=== PATIENT | female | born 1940 | race Caucasian/White ===

== ENCOUNTER → 2017-01-14 | Outpatient (CLI) | payer BC ==
[~2017-01-14] MED LIST: ASPI-428 PO; CALC500C70 PO; CITA20TA9 PO; INSU70IN2 SC; LEVO50TA6 PO; LISI1TAB3 PO; LPT/40 PO; MRLP17X PO; NMN10 PO; TPRSR/25 PO
--- NOTE | 2017-01-17 07:44 | MAMMOGRAPHY REPORT ---
BILATERAL DIGITAL SCREENING MAMMOGRAM WITH CAD: 01/14/2017 CLINICAL HISTORY: Routine screening. Patient has no complaints. TECHNIQUE: Current study was also evaluated with a Computer Aided Detection (CAD) system. Bilateral CC and MLO views were obtained. COMPARISON: Comparison is made to exams dated: 12/12/2015 mammogram, 05/11/2010 mammogram, 05/06/2009 ultrasound, 05/06/2009 mammogram, 08/21/2002 mammogram, and 05/23/1996 mammogram - [facility]. BREAST COMPOSITION: There are scattered areas of fibroglandular density in both breasts. FINDINGS: No suspicious masses, calcifications, or areas of architectural distortion are noted in ei ther breast. There has been no significant interval change compared to prior exams. Scattered bilater al benign-appearing calcifications are not significantly changed. Focal asymmetry in the left 12:00 breast is stable dating back to the 2008 exam. IMPRESSION: ACR BI-RADS CATEGORY 2: BENIGN There is no mammographic evidence of malignancy. A 1 year screening mammogram is recommended. The pa tient will receive written notification of the results. Approximately 10% of breast cancers are not detected with mammography. A negative mammographic report should not delay biopsy if a clinically suggestive mass is present. Kanika Bell M.D. /:01/14/2017 16:37:28 Supervisor Veneer: Leticia Tafoya, [facility] [address] letter sent: Normal 1/2 BI-RADS Code: ACR BI-RADS Category 2: Benign
== END | disposition home or self-care (01) ==
LOC: C.MAMM 13:32
PROVIDERS: ATTEND Family Medicine
DX: Z12.31 Encounter for screening mammogram for malignant neoplasm of breast (principal)

== ENCOUNTER → 2017-09-08 | Outpatient (CLI) | payer BC | END | disposition home or self-care (01) | LOC: C.RDSM 10:54 | PROVIDERS: ATTEND Family Medicine Sports Medicine | DX: M25.552 Pain in left hip (principal) ==

== ENCOUNTER 2018-06-12 12:23 | Observation (INO) ==
[2018-06-12] MEDS ORDERED: NITROGLYCERIN SL 0.4 MG/TAB TAB SL PRN ×2 (13:27→16:27)
[2018-06-12] MEDS ORDERED: ONDANSETRON INJ 2 MG/ML 2 ML VIAL IV STA (13:27)
[2018-06-12] MEDS ORDERED: SODIUM CHLORIDE 0.9% 500 ML IV SCH (13:30)
[2018-06-12 13:43] LABS: Basophils # (auto) 0.03 K/uL (0-0.2); Basophils % (auto) 0.3 %; Eosinophils # (auto) 0.05 K/uL (0-0.5); Eosinophils % (auto) 0.5 %; Hematocrit (blood only) 43.1 % (37-47); Hemoglobin 14.8 g/dL (12.0-16.0); Immature Granulocytes # (auto) 0.02 K/uL (0.00-0.02); Immature Granulocytes % (auto) 0.2 %; Lymphocytes # (auto) 1.37 K/uL (1.2-3.4); Lymphocytes % (auto) 13.2 %; Mean Corpuscular Hgb Conc 34.3 g/dL (32-36); Mean Corpuscular Volume 86.9 fL (80-100); Mean Platelet Volume 11.9 fL (7.4-10.4); Monocytes # (auto) 0.36 K/uL (0.11-0.59); Monocytes % (auto) 3.5 %; Neutrophils # (auto) 8.53 K/uL (1.4-6.5); Neutrophils % (auto) 82.3 %; Platelet Count 215 K/uL (130-400); RDW Coefficient of Variation 13.3 % (11.5-14.5); Red Blood Count 4.96 M/uL (4.2-5.4); White Blood Count 10.36 K/uL (4.8-10.8)
[2018-06-12 13:50] LABS: Albumin Level 3.9 gm/dl (3.4-5.0); BUN Creatinine Ratio 12.1 (10-20); Creatinine Clr Calc Pharmacy 37.8 ml/min; Est GFR (African American) 54.5
[2018-06-12 13:53] LABS: Albumin Globulin Ratio 0.9 (0.9-2); Globulin 4.4 gm/dl (2.5-4.0); Total Protein 8.3 gm/dl (6.4-8.2)
--- NOTE | 2018-06-12 14:09 | XRay Report ---
XR abdomen 2V w PA chest CLINICAL HISTORY: 77 years-old Female presenting with vomiting/cp eval for obstruction. TECHNIQUE: PA view of the chest and supine and upright views of the abdomen were obtained. COMPARISON: 05/29/2016. FINDINGS: Atherosclerosis of the aortic arch. Cardiac silhouette normal in size. Multiple calcified granuloma s uggested. Lungs and pleural spaces otherwise clear. Nonobstructive bowel gas pattern. No gross pneumoperitoneum. Numerous punctate calcifications noted throughout the spleen likely indicating a history of chronic g ranulomatous disease. Atherosclerotic calcifications noted. Total right hip arthroplasty. Mild multilevel degenerative changes of the spine. IMPRESSION: 1. No acute cardiopulmonary disease. 2. No radiographic evidence of acute intra-abdominal pathology. Electronically signed by: Toney Irwin M.D. 06/12/2018 2:08 PM
[2018-06-12] MEDS ORDERED: GLUCAGON FOR INJ 1 MG VIAL SQ PRN (16:27)
[2018-06-12] MEDS ORDERED: DEXTROSE 50% 50 ML SYRINGE IV PRN (16:27)
[2018-06-12] MEDS ORDERED: GLUCOSE 40% GEL 15 GM TUBE PO PRN (16:27)
[2018-06-12] MEDS ORDERED: CARBOHYDRATES FOR HYPOGLYCEMIA PO PRN (16:27)
[2018-06-12] MEDS ORDERED: GLUCOSE 10 TABS/TUBE PO PRN (16:27)
[2018-06-12] MEDS ORDERED: ACETAMINOPHEN 325 MG TAB PO PRN (16:27)
[2018-06-12] MEDS ORDERED: METOPROLOL SUCC 25MG EXT REL TAB PO SCH (16:27)
[2018-06-12 17:02] LABS: Partial Thromboplastin Ratio 0.9; Partial Thromboplastin Time 24.4 Seconds (21.0-31.0); Prothrombin Time 10.2 Seconds (9.0-12.0)
[2018-06-12] MEDS: ASPIRIN 81 MG ECTAB PO SCH (17:02)
[2018-06-12] MEDS: INSULIN ASPART 100 UNITS/ML 3 ML PEN SC SCH ×2 (17:02→20:45)
[2018-06-12] MEDS: LISINOPRIL 40 MG TAB PO SCH (17:02)
[2018-06-12] MEDS: ATORVASTATIN 40 MG TAB PO SCH (17:02)
[2018-06-12] MEDS: LEVOTHYROXINE SODIUM 50 MCG TABLET PO SCH (17:03)
--- NOTE | 2018-06-12 17:46 | Emergency Department Note ---
Entered by Ashley Guo acting as a scribe for Kb Grant MD History of Present Illness General Chief complaint: Chest Pain Stated complaint: CHEST PAINS Source: patient History of Present Illness Onset (ago): day(s) 2 Location: chest Radiation: back (back of shoulder) Pain Consistency: + constant Maximum Pain Intensity: 7 Quality: + other ("pressure") Relieved By: + none Exacerbated By: + none Associated symptoms: + nausea/vomiting (negative nausea, positive vomiting); no shortness of breath and no other (light-headedness, abdmonial pain) The patient is a 77 year old F who presents to the Emergency Room with complaints of constant chest pain starting two days ago. She states that the pain radiates to the back of her shoulder. She describes the pain as a �pressure �. She adds that nothing makes that pain better or worse. She notes that she tried Ibuprofen to no relief. She states that she is vomiting, but denies being short of breath, light-headed, having abdominal pain, or nausea. She states that she threw up twice last night and has not eaten anything since Tuesday due to her chest pain. She adds that she has not taken her blood pressure medication for 3 doses. Home Medications Home Medications Medication Instructions Recorded Confirmed Type aspirin [Aspirin Low Dose] 81 mg PO DAILY 06/12/18 06/12/18 History atorvastatin 40 mg PO DAILY 06/12/18 06/12/18 History insulin NPH and regular human 20 unit SUBCUT DAILY 06/12/18 06/12/18 History [Novolin 70/30 U-100 Insulin] levothyroxine 50 mcg PO DAILY 06/12/18 06/12/18 History lisinopril 40 mg PO DAILY 06/12/18 06/12/18 History metoprolol succinate 25 mg PO DAILY 06/12/18 06/12/18 History nitroglycerin 0.4 mg SUBLINGUAL DIRECTED 06/12/18 06/12/18 History sitagliptin-metformin 1 tab PO BID 06/12/18 06/12/18 History Allergies Allergy/AdvReac Type Severity Reaction Status Date / Time latex Allergy Severe SKIN TEARS Verified 06/12/18 13:03 acetaminophen AdvReac Mild UPSET Verified 06/12/18 13:03 STOMACH codeine AdvReac Mild UPSET Verified 06/12/18 13:03 STOMACH propoxyphene AdvReac Mild UPSET Verified 06/12/18 13:03 STOMACH Past Med/Surg History Medical History CAD (coronary artery disease) (Chronic) 2014-NICHLOAS to RCA HTN (hypertension) (Chronic 09/08/13) History of CVA (cerebrovascular accident) (Chronic) Diabetes mellitus type 2 in nonobese (Chronic) CKD (chronic kidney disease) stage 3, GFR 30-59 ml/min (Chronic) Hypothyroidism (Chronic) Senile dementia (Chronic) Slow transit constipation (Chronic) Osteoporosis (Chronic) Dyslipidemia (Chronic) Fracture of right hip requiring operative repair (Resolved) "ORIF 10/2005" Surgical History History of hysterectomy (Resolved) H/O cataract removal with insertion of prosthetic lens (Resolved) "Left 02/15/15" Social History Current Living Situation: Alone Current Living Situation Comment: Pt lives in 2 story house alone Feels Safe at Home: Yes Safety Concerns: Feels Safe At This Time Smoking Status: Never smoker Hx Alcohol Use: No Hx Substance Use: No Beliefs That Will Affect Care: None Preferred Language: Hungarian Claims Investigator Required: No Review of Systems See HPI for pertinent positives & negatives. and A total of 10 systems reviewed and were otherwise negative Physical Exam Vital Signs Vital Signs - 24 hr 06/12/18 12:27 06/12/18 12:48 06/12/18 12:52 Temperature 36.8 C Temperature Source Oral Sepsis Recent Fever Within 48 Hours No Sepsis New/Unexplained Change in Mental Status No Sepsis Action Taken by Nursing No Action Required Pulse Rate 88 82 83 Pulse Rate [Right Brachial] Pulse Rhythm [Right Brachial] Pulse Strength [Right Brachial] Respiratory Rate 18 17 16 Respiratory Effort / Characteristics Non-Labored Spontaneous Respiratory Depth Normal Respiratory Pattern Regular Blood Pressure 210/102 H 210/123 H Blood Pressure [Right Radial Artery] Blood Pressure Mean 138 152 Blood Pressure Mean [Right Radial Artery] Blood Pressure Position [Right Radial Artery] Pulse Oximetry 100 98 100 Oxygen Delivery Method Room Air 06/12/18 13:00 06/12/18 13:08 06/12/18 13:10 Temperature Temperature Source Sepsis Recent Fever Within 48 Hours Sepsis New/Unexplained Change in Mental Status Sepsis Action Taken by Nursing Pulse Rate 78 80 Pulse Rate [Right Brachial] Pulse Rhythm [Right Brachial] Pulse Strength [Right Brachial] Respiratory Rate 16 22 Respiratory Effort / Characteristics Respiratory Depth Respiratory Pattern Blood Pressure 211/98 H Blood Pressure [Right Radial Artery] Blood Pressure Mean 135 Blood Pressure Mean [Right Radial Artery] Blood Pressure Position [Right Radial Artery] Pulse Oximetry 97 98 98 Oxygen Delivery Method Room Air 06/12/18 13:20 06/12/18 13:30 06/12/18 13:31 Temperature Temperature Source Sepsis Recent Fever Within 48 Hours Sepsis New/Unexplained Change in Mental Status Sepsis Action Taken by Nursing Pulse Rate 85 79 77 Pulse Rate [Right Brachial] Pulse Rhythm [Right Brachial] Pulse Strength [Right Brachial] Respiratory Rate 10 L 18 17 Respiratory Effort / Characteristics Respiratory Depth Respiratory Pattern Blood Pressure 194/99 H Blood Pressure [Right Radial Artery] Blood Pressure Mean 130 Blood Pressure Mean [Right Radial Artery] Blood Pressure Position [Right Radial Artery] Pulse Oximetry 98 98 98 Oxygen Delivery Method 06/12/18 13:40 06/12/18 14:18 06/12/18 14:31 Temperature Temperature Source Sepsis Recent Fever Within 48 Hours Sepsis New/Unexplained Change in Mental Status Sepsis Action Taken by Nursing Pulse Rate 85 Pulse Rate [Right Brachial] Pulse Rhythm [Right Brachial] Pulse Strength [Right Brachial] Respiratory Rate 20 Respiratory Effort / Characteristics Respiratory Depth Respiratory Pattern Blood Pressure 160/79 H 158/74 H Blood Pressure [Right Radial Artery] Blood Pressure Mean 106 102 Blood Pressure Mean [Right Radial Artery] Blood Pressure Position [Right Radial Artery] Pulse Oximetry 98 Oxygen Delivery Method 06/12/18 15:00 06/12/18 16:33 Temperature 36.4 C L Temperature Source Oral Sepsis Recent Fever Within 48 Hours Sepsis New/Unexplained Change in Mental Status Sepsis Action Taken by Nursing Pulse Rate 78 Pulse Rate [Right Brachial] 77 Pulse Rhythm [Right Brachial] Regular Pulse Strength [Right Brachial] Normal Respiratory Rate 22 Respiratory Effort / Characteristics Non-Labored Spontaneous Respiratory Depth Normal Respiratory Pattern Regular Blood Pressure 177/80 H Blood Pressure [Right Radial Artery] 181/95 H Blood Pressure Mean 112 Blood Pressure Mean [Right Radial Artery] 123 Blood Pressure Position [Right Radial Artery] Lying Pulse Oximetry 98 Oxygen Delivery Method Room Air Constitutional: Vital signs reviewed. Hypertensive. Eyes: Pupils are equal round reactive to light. Conjunctiva are noninjected. ENT: Pharynx is clear without erythema or exudate. Mucous membranes are moist. Neck supple without meningeal signs. Respiratory: Clear to auscultation bilaterally. Breath sounds are equal bilaterally. Cardiovascular: Regular rate and rhythm. No rubs or gallops. GI: Soft, nondistended and nontender. Bowel sounds are present. Musculoskeletal: No peripheral edema. No lower extremity tenderness. Integumentary: No cyanosis. Neurological: The patient is awake and alert. No focal deficits. Psychiatric: Normal affect. Course 1313: Past medical records reviewed. The patient was evaluated in room C2, and a complete history and physical examination were performed. 1418: I re-evaluated the patient. The patient states that her chest pain is gone with nitro. The patient's systolic blood pressure is 160. The patient's son said heron the patient ate yesterday but the patient forgot. 1433: I reviewed the patient's case with [facility] Hospitalist. She will evaluate the patient for further management. Consultations Consultation #1: I [facility] the [facility] She will evaluate the patient for further management. Time: 14:33 Administered Medications Aspirin (Ecotrin) 81 mg PO DAILY [facility] Stop: 07/12/18 16:26 Last Admin: 06/12/18 17:02 Dose: 81 mg Atorvastatin Calcium (Lipitor) 40 mg PO DAILY ROM Stop: 07/12/18 16:26 Last Admin: 06/12/18 17:02 Dose: 40 mg Insulin Aspart (Novolog Flexpen) 0 units SC ACHS ROM Stop: 07/12/18 16:29 Last Admin: 06/12/18 17:02 Dose: 3 units Levothyroxine Sodium (Synthroid) 50 mcg PO DAILYBB [facility] Stop: 07/12/18 16:26 Last Admin: 06/12/18 17:03 Dose: 50 mcg Lisinopril (Zestril) 40 mg PO DAILY ROM Stop: 07/12/18 16:26 Last Admin: 06/12/18 17:02 Dose: 40 mg Metoprolol Succinate (Toprol Xl) 25 mg PO DAILY ROM Stop: 07/12/18 16:26 Last Admin: 06/12/18 17:02 Dose: 25 mg Discontinued Medications Sodium Chloride (Nss) 500 mls @ 999 mls/hr IV .Q31M ROM Stop: 06/12/18 14:00 Last Infusion: 06/12/18 14:21 Dose: 0 mls/hr Admin: 06/12/18 13:41 Dose: 999 mls/hr Nitroglycerin (Nitrostat) 0.4 mg SL UD PRN PRN Reason: Chest Pain Stop: 07/12/18 13:26 Last Admin: 06/12/18 13:41 Dose: 0.4 mg Ondansetron HCl (Zofran) 4 mg IV NOW STA Stop: 06/12/18 13:28 Last Admin: 06/12/18 13:41 Dose: 4 mg Medical Decision Making Differential Diagnosis Differential Diagnosis includes: unstable angina, [place], bowel obstruction, pneumonia, GERD Medical Records Attestation: I reviewed the patient's medical records. Home Medications Current Medication List: was personally reviewed by me Laboratory Data Attestation: I reviewed the patient's lab results. Result diagrams: 06/12/18 12:40 06/12/18 12:40 Lab Results 06/12/18 06/12/18 06/12/18 Range/Units 12:40 12:40 12:40 WBC 10.36 (4.8-10.8) K/uL RBC 4.96 (4.2-5.4) M/uL Hgb 14.8 (12.0-16.0) g/dL Hct 43.1 (37-47) % MCV 86.9 (80-100) fL MCH 29.8 (25-34) pg MCHC 34.3 (32-36) g/dL RDW Std Deviation 42.0 (36.4-46.3) fL RDW Coeff of Sarah 13.3 (11.5-14.5) % Plt Count 215 (130-400) K/uL MPV 11.9 H (7.4-10.4) fL Immature Gran % (Auto) 0.2 % Neut % (Auto) 82.3 % Lymph % (Auto) 13.2 % [place] % (Auto) 3.5 % Eos % (Auto) 0.5 % Baso % (Auto) 0.3 % Immature Gran # (Auto) 0.02 (0.00-0.02) K/uL Neut # (Auto) 8.53 H (1.4-6.5) K/uL Lymph # (Auto) 1.37 (1.2-3.4) K/uL [place] # (Auto) 0.36 (0.11-0.59) K/uL Eos # (Auto) 0.05 (0-0.5) K/uL Baso # (Auto) 0.03 (0-0.2) K/uL PT 10.2 (9.0-12.0) Seconds INR 1.0 (0.9-1.1) APTT 24.4 (21.0-31.0) Seconds PTT Ratio 0.9 Sodium 135 L (136-145) mmol/L Potassium 4.0 (3.5-5.1) mmol/L Chloride 97 L (98-107) mmol/L Carbon Dioxide 29 (21-32) mmol/L Anion Gap 9.0 (3-11) BUN 14 (7-18) mg/dl Creatinine 1.14 (0.6-1.2) mg/dl Est Cr Clr Drug Dosing 37.8 ml/min Est GFR ( Amer) 54.5 Est GFR (Non-Af Amer) 47.0 BUN/Creatinine Ratio 12.1 (10-20) Glucose 343 H (70-99) mg/dl POC Glucose (70-99) Calcium 9.0 (8.5-10.1) mg/dl Total Bilirubin 1.0 (0.1-1) mg/dl AST 12 L (15-37) U/L ALT 18 (12-78) U/L Alkaline Phosphatase 144 H (45-117) U/L POC Troponin I (0-0.045) ng/ml Total Protein 8.3 H (6.4-8.2) gm/dl Albumin 3.9 (3.4-5.0) gm/dl Globulin 4.4 H (2.5-4.0) gm/dl Albumin/Globulin Ratio 0.9 (0.9-2) Lipase 89 (73-393) U/L Beta-Hydroxybutyric Acd 8.27 H (0.2-2.81) mg/dl 06/12/18 06/12/18 Range/Units 13:41 16:18 WBC (4.8-10.8) K/uL RBC (4.2-5.4) M/uL Hgb (12.0-16.0) g/dL Hct (37-47) % MCV (80-100) fL MCH (25-34) pg MCHC (32-36) g/dL RDW Std Deviation (36.4-46.3) fL RDW Coeff of Sarah (11.5-14.5) % Plt Count (130-400) K/uL MPV (7.4-10.4) fL Immature Gran % (Auto) % Neut % (Auto) % Lymph % (Auto) % [place] % (Auto) % Eos % (Auto) % Baso % (Auto) % Immature Gran # (Auto) (0.00-0.02) K/uL Neut # (Auto) (1.4-6.5) K/uL Lymph # (Auto) (1.2-3.4) K/uL [place] # (Auto) (0.11-0.59) K/uL Eos # (Auto) (0-0.5) K/uL Baso # (Auto) (0-0.2) K/uL PT (9.0-12.0) Seconds INR (0.9-1.1) APTT (21.0-31.0) Seconds PTT Ratio Sodium (136-145) mmol/L Potassium (3.5-5.1) mmol/L Chloride (98-107) mmol/L Carbon Dioxide (21-32) mmol/L Anion Gap (3-11) BUN (7-18) mg/dl Creatinine (0.6-1.2) mg/dl Est Cr Clr Drug Dosing ml/min Est GFR ( Amer) Est GFR (Non-Af Amer) BUN/Creatinine Ratio (10-20) Glucose (70-99) mg/dl POC Glucose 240 H (70-99) Calcium (8.5-10.1) mg/dl Total Bilirubin (0.1-1) mg/dl AST (15-37) U/L ALT (12-78) U/L Alkaline Phosphatase (45-117) U/L POC Troponin I < 0.03 (0-0.045) ng/ml Total Protein (6.4-8.2) gm/dl Albumin (3.4-5.0) gm/dl Globulin (2.5-4.0) gm/dl Albumin/Globulin Ratio (0.9-2) Lipase (73-393) U/L Beta-Hydroxybutyric Acd (0.2-2.81) mg/dl Imaging Data Radiologist's Impression: Radiology results as stated below per my review and the radiologist's interpretation: XR abdomen 2V w PA chest CLINICAL HISTORY: 77 years-old Female presenting with vomiting/cp eval for obstruction. TECHNIQUE: PA view of the chest and supine and upright views of the abdomen were obtained. COMPARISON: 05/29/2016. FINDINGS: Atherosclerosis of the aortic arch. Cardiac silhouette normal in size. Multiple calcified granuloma suggested. Lungs and pleural spaces otherwise clear. Nonobstructive bowel gas pattern. No gross pneumoperitoneum. Numerous punctate calcifications noted throughout the spleen likely indicating a history of chronic granulomatous disease. Atherosclerotic calcifications noted. Total right hip arthroplasty. Mild multilevel degenerative changes of the spine. IMPRESSION: 1. No acute cardiopulmonary disease. 2. No radiographic evidence of acute intra-abdominal pathology. Electronically signed by: Toney Irwin M.D. 06/12/2018 2:08 PM ECG Data Attestation: I personally reviewed and interpreted this ECG as follows: Indication: chest pain Rate (beats per minute): 82 Rhythm: normal sinus Findings: no PVC and no ST elevation Blood Pressure Blood Pressure Findings: Elevated blood pressure Blood Pressure Disposition: further management by hospitalist NEEMA Narrative I did perform a limited focused review of portions of the patient's old chart on the electronic medical record. The patient has had no recent pertinent visits to this hospital. I did evaluate the patient as noted above. IV access was established. The patient was placed on a continuous traffic monitor specialist. I did order and personally review the patient's 12-lead EKG and chest/abdominal x-ray as described above. She has no acute ischemic changes on her twelve-lead EKG. X-ray is unremarkable. I did order and review the patient's blood work as noted in the electronic medical record. Troponin is negative. The patient is severely hypertensive. She was given nitroglycerin sublingually. On reassessment her chest pain is completely resolved and her blood pressure is significantly improved. Given her history of [place] and current symptoms I did feel hospitalization was indicated for repeat cardiac enzymes and further workup. I did discuss the test results with the patient and her family. I did discuss case with the hospitalist and immigration case worker. Impression & Plan Right-sided chest pain, Poorly-controlled hypertension Discharge Plan Visit Data *Final* Discharge Date/Time: 06/12/18 15:34 Chief Complaint: Chest Pain Stated Complaint: CHEST PAINS ED Provider: Kb Grant Discharge Problem: Right-sided chest pain, Poorly-controlled hypertension Patient Disposition: Admitted As Inpatient Discharge Instructions Interventions: ED Discharge Assessment Last Done: 06/12/18 15:34 The scribe's documentation has been prepared under my direction and personally reviewed by me in its entirety. I confirm that the note above accurately reflects all work, treatment, procedures, and medical decision making performed by me.
--- NOTE | 2018-06-12 17:52 | History & Physical Report ---
Date of Service June 12, 2018 Assessment & Plan (1) CAD (coronary artery disease): (2) Right-sided chest pain: -Admit to telemetry -Patient presenting with 3 days of right scapular/right-sided chest pain -In the ED, patient was given 1 sublingual nitroglycerin with resolution of symptoms -Suspect symptoms are musculoskeletal in nature or due to hypertensive urgency however given patient's history of CAD (S/P NICHOLAS to RCA 2013), will rule out for ACS -Initial troponin negative, will continue to trend; check resting echo -Continue aspirin, statin, beta-wesly (3) Hypertensive urgency: -Patient significantly hypertensive on arrival with BP 210/123 -BP improved after sublingual nitroglycerin -Patient reports she has not taken her home medications yet today -Continue home doses of lisinopril and metoprolol for now, continue monitor BP and make adjustments as needed (4) Urinary frequency: -Check UA and culture, provide antibiotics if indicated (5) History of CVA (cerebrovascular accident): -Continue aspirin and statin (6) Diabetes mellitus type 2 in nonobese: -Hgb A1c 7.7 04/2017 -Hold 70/30 insulin and oral agents and utilize Lantus and NovoLog per protocol while hospitalized -Update Hgb A1c (7) CKD (chronic kidney disease) stage 3, GFR 30-59 ml/min: - baseline creat ~1.0 - creat noted to be 1.1 today - continue to monitor, avoid nephrotoxic agents when able (8) Hypothyroidism: -Continue levothyroxine (9) DVT prophylaxis: -SQ heparin History of Present Illness Chief Complaint: Right-sided chest pain Primary Care Provider: Mally Palumbo 77-year-old female who presents to the ED with right-sided chest pain. Patient reports her symptoms have been ongoing for the past 3 days. She reports that the pain begins around her right shoulder blade and radiates around into her right breast. Review of outpatient records show that patient reported she was carrying groceries a day before her symptoms started. Patient reports the pain has been persistent. She describes the pain as a constant ache. She rates the pain as worse a #7/10. She denies any associated shortness of breath. She reports one episode of diaphoresis. Last evening, she reports nausea and 2 episodes of emesis. She denies hematemesis or coffee-ground emesis. No abdominal pain or diarrhea. She denies lightheadedness, dizziness, syncopal events. No fevers or chills. She reports some urinary frequency and feels as though she may have a UTI. In the ED, patient was given 1 sublingual nitroglycerin with complete resolution of her symptoms. She is found to be sniffily hypertensive with BP 210/123. BP improved after sublingual nitroglycerin as well. Patient reports she did not take her medications yet today. Initial troponin is negative, EKG does not show any acute ST changes. Allergies Allergy/AdvReac Type Severity Reaction Status Date / Time latex Allergy Severe SKIN TEARS Verified 06/12/18 13:03 acetaminophen AdvReac Mild UPSET Verified 06/12/18 13:03 STOMACH codeine AdvReac Mild UPSET Verified 06/12/18 13:03 STOMACH propoxyphene AdvReac Mild UPSET Verified 06/12/18 13:03 STOMACH Home Medications Home Medications Medication Instructions Recorded Confirmed Type aspirin [Aspirin Low Dose] 81 mg PO DAILY 06/12/18 06/12/18 History atorvastatin 40 mg PO DAILY 06/12/18 06/12/18 History insulin NPH and regular human 20 unit SUBCUT DAILY 06/12/18 06/12/18 History [Novolin 70/30 U-100 Insulin] levothyroxine 50 mcg PO DAILY 06/12/18 06/12/18 History lisinopril 40 mg PO DAILY 06/12/18 06/12/18 History metoprolol succinate 25 mg PO DAILY 06/12/18 06/12/18 History nitroglycerin 0.4 mg SUBLINGUAL DIRECTED 06/12/18 06/12/18 History sitagliptin-metformin 1 tab PO BID 06/12/18 06/12/18 History Past Med/Surg History Medical History CAD (coronary artery disease) (Chronic) 2013-NICHOLAS to RCA HTN (hypertension) (Chronic 09/08/13) History of CVA (cerebrovascular accident) (Chronic) Diabetes mellitus type 2 in nonobese (Chronic) CKD (chronic kidney disease) stage 3, GFR 30-59 ml/min (Chronic) Hypothyroidism (Chronic) Senile dementia (Chronic) Slow transit constipation (Chronic) Osteoporosis (Chronic) Dyslipidemia (Chronic) Fracture of right hip requiring operative repair (Resolved) "ORIF 10/2005" Surgical History History of hysterectomy (Resolved) H/O cataract removal with insertion of prosthetic lens (Resolved) "Left 02/15/15" Social History Current Living Situation: Alone Current Living Situation Comment: Pt lives in 2 story house alone Feels Safe at Home: Yes Safety Concerns: Feels Safe At This Time Smoking Status: Never smoker Hx Alcohol Use: No Hx Substance Use: No Beliefs That Will Affect Care: None Preferred Language: [place] Checkout Supervisor Required: No Review of Systems ROS per HPI, all other systems reviewed and negative Physical Exam 2 Vital Signs (Past 24 Hours): Last Vital Signs Temp 36.4 C L 06/12/18 16:33 Pulse 77 06/12/18 16:33 Resp 22 06/12/18 16:33 BP 181/95 H 06/12/18 16:33 Pulse Ox 98 06/12/18 16:33 Constitutional: WD/WN, vitals as above Eyes: PERRL, conjunctivae normal, anicteric sclerae ENMT: external ear and nose normal, oropharynx normal Respiratory: normal respiratory effort, lungs clear to auscultation Cardiovascular: Rate/Rhythm: regular rate and regular rhythm Vessels: normal peripheral pulses Extremities: no edema Gastrointestinal (Abdomen): normal bowel sounds, soft, nontender, no hepatosplenomegaly Musculoskeletal: no cyanosis or clubbing, extremities motor strength 5/5 Skin: no rashes, warm and dry Neurologic: PERRL, EOMI, accommodation nl, no face palsy, no dysarthria Psychiatric: A+Ox3, euthymic affect Results & Data Laboratory Results Laboratory Last Values WBC 10.36 K/uL (4.8-10.8) 06/12/18 12:40 RBC 4.96 M/uL (4.2-5.4) 06/12/18 12:40 Hgb 14.8 g/dL (12.0-16.0) 06/12/18 12:40 Hct 43.1 % (37-47) 06/12/18 12:40 MCV 86.9 fL (80-100) 06/12/18 12:40 MCH 29.8 pg (25-34) 06/12/18 12:40 MCHC 34.3 g/dL (32-36) 06/12/18 12:40 RDW Std Deviation 42.0 fL (36.4-46.3) 06/12/18 12:40 RDW Coeff of Sarah 13.3 % (11.5-14.5) 06/12/18 12:40 Plt Count 215 K/uL (130-400) 06/12/18 12:40 MPV 11.9 fL (7.4-10.4) H 06/12/18 12:40 Immature Gran % (Auto) 0.2 % 06/12/18 12:40 Neut % (Auto) 82.3 % 06/12/18 12:40 Lymph % (Auto) 13.2 % 06/12/18 12:40 [place] % (Auto) 3.5 % 06/12/18 12:40 Eos % (Auto) 0.5 % 06/12/18 12:40 Baso % (Auto) 0.3 % 06/12/18 12:40 Immature Gran # (Auto) 0.02 K/uL (0.00-0.02) 06/12/18 12:40 Neut # (Auto) 8.53 K/uL (1.4-6.5) H 06/12/18 12:40 Lymph # (Auto) 1.37 K/uL (1.2-3.4) 06/12/18 12:40 [place] # (Auto) 0.36 K/uL (0.11-0.59) 06/12/18 12:40 Eos # (Auto) 0.05 K/uL (0-0.5) 06/12/18 12:40 Baso # (Auto) 0.03 K/uL (0-0.2) 06/12/18 12:40 PT 10.2 Seconds (9.0-12.0) 06/12/18 12:40 INR 1.0 (0.9-1.1) 06/12/18 12:40 APTT 24.4 Seconds (21.0-31.0) 06/12/18 12:40 PTT Ratio 0.9 06/12/18 12:40 Sodium 135 mmol/L (136-145) L 06/12/18 12:40 Potassium 4.0 mmol/L (3.5-5.1) 06/12/18 12:40 Chloride 97 mmol/L (98-107) L 06/12/18 12:40 Carbon Dioxide 29 mmol/L (21-32) 06/12/18 12:40 Anion Gap 9.0 (3-11) 06/12/18 12:40 BUN 14 mg/dl (7-18) 06/12/18 12:40 Creatinine 1.14 mg/dl (0.6-1.2) 06/12/18 12:40 Est Cr Clr Drug Dosing 37.8 ml/min 06/12/18 12:40 Est GFR ( Amer) 54.5 06/12/18 12:40 Est GFR (Non-Af Amer) 47.0 06/12/18 12:40 BUN/Creatinine Ratio 12.1 (10-20) 06/12/18 12:40 Glucose 343 mg/dl (70-99) H 06/12/18 12:40 POC Glucose 240 (70-99) H 06/12/18 16:18 Calcium 9.0 mg/dl (8.5-10.1) 06/12/18 12:40 Total Bilirubin 1.0 mg/dl (0.1-1) 06/12/18 12:40 AST 12 U/L (15-37) L 06/12/18 12:40 ALT 18 U/L (12-78) 06/12/18 12:40 Alkaline Phosphatase 144 U/L (45-117) H 06/12/18 12:40 POC Troponin I < 0.03 ng/ml (0-0.045) 06/12/18 13:41 Total Protein 8.3 gm/dl (6.4-8.2) H 06/12/18 12:40 Albumin 3.9 gm/dl (3.4-5.0) 06/12/18 12:40 Globulin 4.4 gm/dl (2.5-4.0) H 06/12/18 12:40 Albumin/Globulin Ratio 0.9 (0.9-2) 06/12/18 12:40 Lipase 89 U/L (73-393) 06/12/18 12:40 Beta-Hydroxybutyric Acd 8.27 mg/dl (0.2-2.81) H 06/12/18 12:40 Diagnostic Findings CHEST/ABDOMEN X-RAY IMPRESSION: 1. No acute cardiopulmonary disease. 2. No radiographic evidence of acute intra-abdominal pathology. Code Status & VTE Plan VTE Prophylaxis Plan VTE Prophylaxis will be ordered: Yes Supervising Physician Co-Signing Physician Notes Patient is a 77-year-old female with multiple comorbidities presents with history of right-sided chest pain since 3 days duration. She reports associated right shoulder blade pain radiating across the chest. She reports associated nausea, vomiting, diarrhea. She states not taking her blood pressure medications since last 4-5 days. History is unreliable given history of dementia. She was noted to have hypertensive emergency while in ED. she received nitroglycerin while in ED which improved her symptoms. Patient denied any recent antibiotic use, sick contacts or recent travel. Initial troponin is negative and EKG did not show any signs of acute ischemia. On exam patient is moderately built and nourished, no apparent distress, lungs are clear to auscultation, S1-S2, no murmur, abdomen is benign, trace pedal edema edema is noted. Given history of coronary artery disease patient is admitted in telemetry unit to rule out ACS. Chest pain likely is musculoskeletal in origin. Plan to trend troponin, repeat EKG in a.m. and check echo for wall motion abnormality, TSH. Continue aspirin statin and metoprolol. Consider right shoulder x-ray if pain is persistent. Will start on labetalol as needed for blood pressure control. Check stool for C.diff. I personally reviewed the record. Patient is interviewed and examined at bedside. Patient's care is coordinated with Gabriella Tran REFUGE WORKER. Please refer to the documentation above for details of patient's presentation and for discussion of other issues.
[2018-06-12 18:53] LABS: Appearance Urine Clear (Clear); Bacteria Urine Automated Negative (Negative); Bilirubin Urine Negative (Negative); Color Urine Yellow; Glucose Urine UA 3+ (Negative); Ketones Urine 1+ (Negative); Leukocyte Esterase Urine Negative (Negative); Nitrite Urine Negative (Negative); Protein Urine 3+ (Negative); Specific Gravity Urine 1.029 (1.000-1.030); Urobilinogen Urine Negative (Negative)
[2018-06-12] MEDS: LABETALOL HCL IV 5 MG/ML 20ML IV PRN (19:53)
[2018-06-12] MEDS: HEPARIN SOD 5,000 UNIT/0.5 ML VIAL SQ SCH (20:44)
[2018-06-12] MEDS: INSULIN GLARGINE SOLOSTAR 100 UNITS/ML 3 ML PEN SC SCH (20:44)
[2018-06-13] MEDS: HEPARIN SOD 5,000 UNIT/0.5 ML VIAL SQ SCH ×3 (05:53→20:37)
[2018-06-13] MEDS: LEVOTHYROXINE SODIUM 50 MCG TABLET PO SCH (05:53)
[2018-06-13 06:24] LABS: Hematocrit (blood only) 40.3 % (37-47); Hemoglobin 13.5 g/dL (12.0-16.0); Mean Corpuscular Hgb Conc 33.5 g/dL (32-36); Mean Corpuscular Volume 87.8 fL (80-100); Mean Platelet Volume 11.2 fL (7.4-10.4); Platelet Count 210 K/uL (130-400); RDW Coefficient of Variation 13.3 % (11.5-14.5); RDW Standard Deviation 42.8 fL (36.4-46.3); Red Blood Count 4.59 M/uL (4.2-5.4); White Blood Count 8.98 K/uL (4.8-10.8)
[2018-06-13 06:54] LABS: BUN Creatinine Ratio 14.8 (10-20); Calcium 8.5 mg/dl (8.5-10.1); Creatinine Clr Calc Pharmacy 39.8 ml/min; Est GFR (African American) 58.2; Est GFR (Non-African American) 50.2; Potassium 3.4 mmol/L (3.5-5.1)
[2018-06-13] MEDS ORDERED: POTASSIUM CHLORIDE 10 MEQ TABCR PO STA (07:41)
[2018-06-13] MEDS: INSULIN ASPART 100 UNITS/ML 3 ML PEN SC SCH ×4 (08:15→20:35)
[2018-06-13] MEDS: ASPIRIN 81 MG ECTAB PO SCH (08:18)
[2018-06-13] MEDS: INSULIN GLARGINE SOLOSTAR 100 UNITS/ML 3 ML PEN SC SCH ×2 (08:19→20:35)
[2018-06-13] MEDS: ATORVASTATIN 40 MG TAB PO SCH (08:19)
[2018-06-13] MEDS: LISINOPRIL 40 MG TAB PO SCH (08:20)
[2018-06-13] MEDS: METOPROLOL SUCC 50MG EXT REL TAB PO SCH (08:20)
[2018-06-13] MEDS ORDERED: AMLODIPINE BESYLATE 5 MG TAB PO ONE (09:28)
[2018-06-13] MEDS: LABETALOL HCL IV 5 MG/ML 20ML IV PRN ×2 (11:54→20:34)
--- NOTE | 2018-06-13 14:12 | Hospitalist Progress Note ---
Date of Service June 13, 2018 Assessment & Plan (1) CAD (coronary artery disease): (2) Right-sided chest pain: Likely musculoskeletal in origin H/O CAD Troponin:Negative EKG shows:No signs of acute Ischemia CXR: No acute cardiopulmonary disease. ECHO: No new wall motion abnormalities. Discussed with Cardiology Continue Aspirin, statin, Metoprolol Chest pain resolved (3) Hypertensive urgency: Patient admits to being non compliant with medications for last 5 days Continue Lisinopril 40mg Increase Metoprolol to 50mg daily Add Amlodipine 5mg daily Labetalol PRN (4) Urinary frequency: UA not suggestive of UTI (5) History of CVA (cerebrovascular accident): Continue aspirin, statin (6) Diabetes mellitus type 2 in nonobese: Hb A1c 7.7 04/2017 Hold 70/30 insulin and oral agents Continue ISS, lantus e Lantus Update A1C:pending (7) CKD (chronic kidney disease) stage 3, GFR 30-59 ml/min: Baseline creat ~1.0 Cr at baseline Monitor renal function avoid nephrotoxic agents when able (8) Hypothyroidism: Continue levothyroxine (9) DVT prophylaxis: SQ heparin Code Status: Full Code Subjective Patient is seen and examined at bedside States chest pain/shoulder pain resolved Denies dyspnea, dizziness No vomiting, diarrhea since admission No other complaints BP remains elevated Physical Exam 2 Vital Signs (Past 24 Hours): Last Vital Signs Temp 36.6 C 06/13/18 07:35 Pulse 69 06/13/18 13:11 Resp 16 06/13/18 07:35 BP 161/81 H 06/13/18 13:11 Pulse Ox 96 06/13/18 07:35 Physical Exam: Physical Exam: Vitals signs as noted above General Appearance:Moderately built and nourished, no apparent distress Head: normocephalic, Atraumatic Eyes: normal inspection, EOMI, PERRL Neck: supple, Trachea midline Respiratory/Chest: Normal breath sounds, CTA Cardiovascular: S1, S2, No murmur Abdomen/GI:Soft, Non tender, Bowel sounds present Extremities/Musculoskelatal:normal inspection, Trace edema Neurologic/Psych:AAOX3, grossly no focal neurological deficits Skin: normal color, warm Results & Data Laboratory Results Short CBC 06/13/18 Range/Units 06:13 WBC 8.98 (4.8-10.8) K/uL Hgb 13.5 (12.0-16.0) g/dL Hct 40.3 (37-47) % Plt Count 210 (130-400) K/uL BMP 06/13/18 06:13 Sodium 137 Potassium 3.4 L Chloride 102 Carbon Dioxide 28 BUN 16 Creatinine 1.08 Glucose 188 H Calcium 8.5 Cardiac Enzymes 06/12/18 06/13/18 Range/Units 19:33 00:58 Troponin I < 0.015 < 0.015 (0-0.045) ng/ml Urine 06/12/18 Range/Units 18:40 Urine Color Yellow Urine Appearance Clear (Clear) Urine pH 5.0 (4.5-7.5) Ur Specific [place] 1.029 (1.000-1.030) Urine Protein 3+ H (Negative) Urine Glucose (UA) 3+ H (Negative)
[2018-06-14 05:33] LABS: Estimated Average Glucose 329 mg/dl
[2018-06-14] MEDS: LABETALOL HCL IV 5 MG/ML 20ML IV PRN (06:13)
[2018-06-14] MEDS: HEPARIN SOD 5,000 UNIT/0.5 ML VIAL SQ SCH ×2 (06:13→15:02)
[2018-06-14] MEDS: LEVOTHYROXINE SODIUM 50 MCG TABLET PO SCH (06:13)
[2018-06-14 06:50] LABS: BUN Creatinine Ratio 20.5 (10-20); Calcium 8.6 mg/dl (8.5-10.1); Creatinine Clr Calc Pharmacy 45.3 ml/min; Est GFR (African American) 67.9; Est GFR (Non-African American) 58.6; Potassium 3.7 mmol/L (3.5-5.1)
[2018-06-14] MEDS: INSULIN ASPART 100 UNITS/ML 3 ML PEN SC SCH ×3 (08:01→16:44)
[2018-06-14] MEDS: INSULIN GLARGINE SOLOSTAR 100 UNITS/ML 3 ML PEN SC SCH (08:41)
[2018-06-14] MEDS: ATORVASTATIN 40 MG TAB PO SCH (08:41)
[2018-06-14] MEDS: ASPIRIN 81 MG ECTAB PO SCH (08:41)
[2018-06-14] MEDS: LISINOPRIL 40 MG TAB PO SCH (08:42)
[2018-06-14] MEDS: METOPROLOL SUCC 50MG EXT REL TAB PO SCH (08:42)
[2018-06-14] MEDS ORDERED: AMLODIPINE BESYLATE 5 MG TAB PO SCH (09:00)
--- NOTE | 2018-06-14 14:44 | XRay Report ---
XR shoulder RT min 2V routine CLINICAL HISTORY: shoulder pain COMPARISON: None. DISCUSSION: No fractures or dislocations are visualized. Degenerative changes are present within the AC joint. There are subchondral cysts within the humerus adjacent to the greater tuberosity. There is a stable right lower lobe point nodule, likely postinflammatory IMPRESSION: 1. Mild degenerative change 2. No fractures or dislocations identified Electronically signed by: Brayan Foley M.D. 06/14/2018 2:43 PM
--- NOTE | 2018-06-14 16:35 | Hospitalist Progress Note ---
Date of Service June 14, 2018 Assessment & Plan (1) CAD (coronary artery disease): (2) Right-sided chest pain: Likely musculoskeletal in origin H/O CAD Troponin:Negative EKG shows:No signs of acute Ischemia CXR: No acute cardiopulmonary disease. ECHO: No new wall motion abnormalities. Discussed with Cardiology Continue Aspirin, statin, Metoprolol Chest pain resolved Shoulder X ray: Mild degenerative change (3) Hypertensive urgency: Patient admits to being non compliant with medications for last 5 days Continue Lisinopril 40mg Increase Metoprolol to 50mg daily Added Amlodipine 5mg daily Labetalol PRN (4) Urinary frequency: UA not suggestive of UTI (5) History of CVA (cerebrovascular accident): Continue aspirin, statin (6) Diabetes mellitus type 2 in nonobese: Hb A1c 7.7 04/2017 Hold 70/30 insulin and oral agents Continue ISS, lantus e Lantus Update A1C:13.1 Will Increase Insulin dose for better BG control (7) CKD (chronic kidney disease) stage 3, GFR 30-59 ml/min: Baseline creat ~1.0 Cr at baseline Monitor renal function avoid nephrotoxic agents when able (8) Hypothyroidism: Continue levothyroxine (9) DVT prophylaxis: SQ heparin Code Status: Full Code Disposition: Plan to discharge home today Subjective Patient is seen and examined at bedside Reports recurrence of shoulder pain overnight which currently resolved Denies dyspnea, dizziness, chest pain No vomiting, diarrhea since admission No other complaints BP improved Physical Exam 2 Vital Signs (Past 24 Hours): Last Vital Signs Temp 37.1 C 06/14/18 15:17 Pulse 68 06/14/18 15:17 Resp 17 06/14/18 15:17 BP 143/77 H 06/14/18 15:17 Pulse Ox 94 06/14/18 15:17 Constitutional: Physical Exam: Vitals signs as noted above General Appearance:Moderately built and nourished, no apparent distress Head: normocephalic, Atraumatic Eyes: normal inspection, EOMI Neck: supple, Trachea midline Respiratory/Chest: Normal breath sounds, CTA Cardiovascular: S1, S2, No murmur Abdomen/GI:Soft, Non tender, Bowel sounds present Extremities/Musculoskelatal:normal inspection, Trace edema Neurologic/Psych:AAOX3, grossly no focal neurological deficits Skin: normal color, warm Results & Data Laboratory Results [facility] 06/14/18 06:01 Sodium 139 Potassium 3.7 Chloride 106 Carbon Dioxide 27 BUN 20 H Creatinine 0.95 Glucose 183 H Calcium 8.6 Diagnostic Findings Shoulder X ray: 1. Mild degenerative change 2. No fractures or dislocations identified
--- NOTE | 2018-06-14 17:11 | Discharge Summary ---
Date of Service June 14, 2018 Admission HPI Per Admitting Provider 77-year-old female who presents to the ED with right-sided chest pain. Patient reports her symptoms have been ongoing for the past 3 days. She reports that the pain begins around her right shoulder blade and radiates around into her right breast. Review of outpatient records show that patient reported she was carrying groceries a day before her symptoms started. Patient reports the pain has been persistent. She describes the pain as a constant ache. She rates the pain as worse a #7/10. She denies any associated shortness of breath. She reports one episode of diaphoresis. Last evening, she reports nausea and 2 episodes of emesis. She denies hematemesis or coffee-ground emesis. No abdominal pain or diarrhea. She denies lightheadedness, dizziness, syncopal events. No fevers or chills. She reports some urinary frequency and feels as though she may have a UTI. In the ED, patient was given 1 sublingual nitroglycerin with complete resolution of her symptoms. She is found to be sniffily hypertensive with BP 210/123. BP improved after sublingual nitroglycerin as well. Patient reports she did not take her medications yet today. Initial troponin is negative, EKG does not show any acute ST changes. Admission Exam Per Admitting Provider Constitutional: WD/WN, vitals as above Eyes: PERRL, conjunctivae normal, anicteric sclerae ENMT: external ear and nose normal, oropharynx normal Respiratory: normal respiratory effort, lungs clear to auscultation Cardiovascular: Rate/Rhythm: regular rate and regular rhythm Vessels: normal peripheral pulses Extremities: no edema Gastrointestinal (Abdomen): normal bowel sounds, soft, nontender, no hepatosplenomegaly Musculoskeletal: no cyanosis or clubbing, extremities motor strength 5/5 Skin: no rashes, warm and dry Neurologic: PERRL, EOMI, accommodation nl, no face palsy, no dysarthria Psychiatric: A+Ox3, euthymic affect Principal Diagnosis Discharge Information Discharge Diagnosis Chest/Shoulder Pain Discharge Goals Decrease discomfort,Improve disease control, Improve function Discharge Activity Limitations Resume your previous activity Discharge Data Allergies Allergy/AdvReac Type Severity Reaction Status Date / Time latex Allergy Severe SKIN TEARS Verified 06/12/18 13:03 acetaminophen AdvReac Mild UPSET Verified 06/12/18 13:03 STOMACH codeine AdvReac Mild UPSET Verified 06/12/18 13:03 STOMACH propoxyphene AdvReac Mild UPSET Verified 06/12/18 13:03 STOMACH Consultations 06/12/18 14:25 ED Decision to Admit Stat Procedures Performed Chest/Abdominal X ray: 1. No acute cardiopulmonary disease. 2. No radiographic evidence of acute intra-abdominal pathology. R Shoulder X ray: 1. Mild degenerative change 2. No fractures or dislocations identified ECHO; Compared to prior study, there is no significant change Left ventricle is normal in size There is moderate concentric LVH The inferior and posterior nice are hypokinetic the base. All other wall segments contract normally Ejection fraction = 60-65% Grade 1 diastolic dysfunction, (abnormal relaxation pattern) Aortic wall sclerosis moderate, without significant aortic wall stenosis There is mild mitral regurgitation Doppler findings do not suggest pulmonary hypertension The aortic root is normal size Hospital Course (1) CAD (coronary artery disease): (2) Right-sided chest pain: Likely musculoskeletal in origin H/O CAD Troponin:Negative EKG shows:No signs of acute Ischemia CXR: No acute cardiopulmonary disease. ECHO: No new wall motion abnormalities. Discussed with Cardiology Continue Aspirin, statin, Metoprolol Chest pain resolved Shoulder X ray: Mild degenerative change (3) Hypertensive urgency: Patient admits to being non compliant with medications for last 5 days Continue Lisinopril 40mg Increase Metoprolol to 50mg daily Added Amlodipine 5mg daily Labetalol PRN (4) Urinary frequency: UA not suggestive of UTI (5) History of CVA (cerebrovascular accident): Continue aspirin, statin (6) Diabetes mellitus type 2 in nonobese: Hb A1c 7.7 04/2017 Hold 70/30 insulin and oral agents Continue ISS, lantus e Lantus Update A1C:13.1 Will Increase Insulin dose for better BG control: 70/30...20 units with brekfast and 10 units with dinner (7) CKD (chronic kidney disease) stage 3, GFR 30-59 ml/min: Baseline creat ~1.0 Cr at baseline Monitor renal function avoid nephrotoxic agents when able (8) Hypothyroidism: Continue levothyroxine (9) DVT prophylaxis: SQ heparin Code Status: Full Code Disposition: Plan to discharge home today Total Time Total Time Spent Total Time Spent (In Minutes): 25 minutes Total Time Includes: Examination of the Patient, Discharge Planning, Medication Reconciliation and Other Discharge Plan Discharge Items Patient Disposition: Home - Self-Care Reason For Visit: CHEST PAIN Discharge Diagnosis: Chest/Shoulder Pain Discharge Goals: Decrease discomfort, Improve disease control and Improve function Activity: Resume your previous activity Lifting: Gradually increase as tolerated Exercise/Sports: Gradually increase as tolerated Non-emergency contact: Primary Care Provider and Maintenance Job Titles Call non-emergency contact if: you have any medication questions, your symptoms worsen, your pain is not controlled, your pain is worsening, your pain is unusual for you and you have a fever Diet: Carb Consistent or DM2 and Heart Healthy Addtl Provider Instructions: Follow up with Dr. Powell on 06/19/18 at 11:05AM Follow up with your Maintenance Job Titles in 2-4 weeks as advised Seek immediate medical attention if your symptoms reoccur or worsen Medication Changes: Your Metoprolol is increased from 25mg to 50mg daily You are started on amlodipine 5mg daily Your Novolin 70/30 is increased to 20 units with breakfast and 10 units with dinner Please discuss with your physician for further management of your diabetes Prescriptions: New metoprolol succinate 50 mg Tablet Extended Release 24 Hr 50 mg PO DAILY 30 Days Qty: 30 RF: 0 amlodipine [Norvasc] 5 mg Tablet 5 mg PO QAM 30 Days Qty: 30 RF: 0 Continue atorvastatin 40 mg Tablet 40 mg PO DAILY RF: 0 aspirin [Aspirin Low Dose] 81 mg Tablet,Delayed Release (Dr/Ec) 81 mg PO DAILY RF: 0 levothyroxine 50 mcg Tablet 50 mcg PO DAILY RF: 0 nitroglycerin 0.4 mg Tablet, Sublingual 0.4 mg Sublingual DIRECTED RF: 0 lisinopril 40 mg Tablet 40 mg PO DAILY RF: 0 sitagliptin-metformin 50-1,000 mg Tablet 1 tab PO BID RF: 0 Discontinued metoprolol succinate 25 mg Tablet Extended Release 24 Hr 25 mg PO DAILY RF: 0 Stand-Alone Forms: [facility] Discharge Orders: Discharge Order (Routine); Ordered 06/14/18 Ordered By: Jose Ocasio Admission Data Admit Date/Time: 06/12/18 14:51 Attending Provider: Jose Ocasio Admit Provider: Jose Ocasio Primary Care Provider: Mally Palumbo Other Providers: Horace Barboza Service: Telemetry Other Pending Studies at Discharge: No
== END 2018-06-14 18:04 | disposition home or self-care (01) ==
LOC: ED 12:23 → 2E 12:23

== ENCOUNTER 2024-01-14 21:40 | Inpatient (IN) ==
--- OUTSIDE RECORDS SUMMARY | 2024-01-14 21:49 | External Medical Summary | Continuity of Care Document ---
Author Name Unknown Organization [facility] [id number] Address [address] [place] [address] [id number] Care Team Providers Care Director Weights And Measures Name Role Phone Nilda Mayer Primary Care Physician [phone] [id number] Date(s): 09/14/23 - 09/14/23 [facility] [address] [place] [id number] [address] [address] Encounter Diagnosis Diabetes(Discharge Diagnosis) - 09/14/23 Tinea unguium(Discharge Diagnosis) - 09/14/23 Discharge Disposition: Home or Self Care Attending Physician: HAY Mayer Christina L Referring Physician: HAY Mayer Christina L Allergies, Adverse Reactions, Alerts Substance Reaction Severity Status oxyCODONE stomach upset Active HYDROcodone HD stomach upset Active Assessment and Plan Extracted from: Title:Follow Up Visit Author:HAY Mayer, Jone Neumann Date:09/14/23 1.Diabetes 2.Tinea unguium -Patient unable to provide self care to toenails due todiabetes - verbal consent obtained for debridement -Recommend toenail debridement -Patient had toenails of bilateral digits 1-5 debrided using nail nippers to tolerance, no bleeding noted -Patient instructed to use emery board to nails once per week -Patient had no ingrown toenails or infection noted -Patient is to follow up in 6 months for treatment if needed in the future Patient is a low risk diabetic Refill provided of topical toenail medication. Medications amLODIPine 5 mg oral tablet TAKE 1 TABLET BY MOUTH IN THE MORNING Start Date: 06/01/22 Status: Ordered atorvastatin 40 mg oral tablet Start: 10/09/21 15:42:00 EDT, 90 each, TAKE 1 TABLET BY MOUTH ONCE DAILY Start Date: 10/09/21 Status: Ordered levothyroxine Start: 09/08/17 10:50:00 Start Date: 09/08/17 Status: Ordered lisinopril 40 mg oral tablet TAKE 1 TABLET BY MOUTH ONCE DAILY IN THE MORNING Start Date: 06/01/22 Status: Ordered Metoprolol Succinate ER 50 mg oral tablet, extended release Start: 09/14/23 14:42:00 EDT, 1 tab, PO, Daily Start Date: 09/14/23 Status: Ordered NovoLOG Mix 70/30 subcutaneous suspension Start: 09/08/17 10:49:00 Start Date: 09/08/17 Status: Ordered Penlac Nail Lacquer 8% topical solution Start: 09/14/23 15:02:00 EDT, 1 appl, topical, Daily, Disp# 6.6 mL, Refills: 4, Pharmacy: [id number] Start Date: 09/14/23 Stop Date: 01/01/26 Status: Ordered Trulicity Pen 4.5 mg/0.5 mL subcutaneous solution Start: 09/14/23 14:45:00 EDT Start Date: 09/14/23 Status: Ordered Mental Status 09/14/23 Barriers to Learning one year None evide nt Mandatory Health Literacy Documentation Yes Health Literacy Communication Barriers N ever Primary Language Niuean Problem List Condition Confirmation Course Effective Dates Status H ealth Status Informant Stroke Confirmed Active Diabetes Confirmed Active Hypertension Confirmed Active Hypothyroidism Confirmed Active Muscle strain of left gluteal region Confirmed Active Tinea unguium Confirmed Active Diagnosis Diagnosis Type Effective Dates Health Status Cl inical Service Informant Diabetes Discharge Diagnosis 09/14/23 Tinea unguium Discharge Diagnosis 09/14/23 Procedures Procedure Date Related Diagnosis Body Site Status Arthroplasty 1 Completed delivery Complet ed Heart Completed 1right hip Vital Signs Most recent to oldest [Reference Range]: 1 Height 155.5 cm (09/14/23 2:47 PM) Patient Weight 61.0 kg (09/14/23 2:47 PM) Body Mass Index 25.23 kg/m2 (09/14/23 2:47 PM) Social History Social History Type Response Smoking Status Never smoked cigaret leena Sex Female Ortho Outpt Note * HAY Mayer, Nilda Neumann: PERFORM Event Display: Ortho Outpt Note Authored Date: [id number] Chief Complaint nail fungus follow-up, has not been seen since 05/2022. believes left nails are affected again Subjective Patient is a low risk diabetic last seen June 01resenting today for carein relationship to diabetes. No acute concerns noted today. Review of Systems History of 2 stents, decreased vision, dry skin, diarrhea, diabetes Objective Vitals & Measurements WT:61.000kg(Dosing) WT:61.0kg Physical Exam Problem focused bilateral feet: Dorsalis pedis pulsepalpable1 out of 4, posterior tibial pulsenonpalpable, capillary refill time less than 3 seconds, skin turgoris good to distal extremities, pedal hair is absent. Skin has some shininesswith trophic skin changes secondary to historyof mild peripheral vascular disease. Monofilament test minimally diminished distal tremors, light touch minimally diminished distal extremities, proprioception diminisheddistal extremities. No history of amputations and no history of open wounds Interspaces are intact without maceration Toenails of digits 1 through 5 bilateral feet with elongation, thickening greater than 1 mm, discoloration, dystrophy,subungualdebris and pain recommend debridement Assessment/Plan 1.Diabetes 2.Tinea unguium -Patient unable to provide self care to toenails due todiabetes - verbal consent obtained for debridement -Recommend toenail debridement -Patient had toenails of bilateral digits 1-5 debrided using nail nippers to tolerance, no bleedingnoted -Patient instructed to use emery board to nails once per week -Patient had no ingrown toenails or infection noted -Patient is to follow up in 6 months for treatment if needed in the future Patient is a low risk diabetic Refill provided of topical toenail medication. Electronic Signature on File Electronically Reviewed/Signed by: Nilda Mayer DPM Author Signature Dt/Tm:09/14/2023 03:02 PM Division of Sports Medicine CLR Patient Care team information Care Team Personnel Name: HAY Mayer Christina L Position: Physician - Podiatry Member Role: Primary Care Provider Address: Address: [address] [place] [address] [place] Care Team Related Persons Name: ANDRE IRWINFER Address: home [address] [place], [place] [id number]
[2024-01-14] MEDS ORDERED: STAT IV Infusion **Titration per Protocol STA (22:19)
[2024-01-14] MEDS ORDERED: PHARMACY GLYCEMIC MGMT CONSULT PRN (22:19)
[2024-01-14] MEDS: SODIUM CHLORIDE 0.9% 1,000 ML IV SCH (22:39)
[2024-01-14 22:43] LABS: Base Excess VBG -9.8 mEq/L; HCO3 VBG 20 mmol/L; Oxygen Saturation VBG < 60.0 %; PCO2 VBG 60 mmHg (38-50); PO2 VBG 36 mmHg; pH VBG 7.13 (7.36-7.41)
[2024-01-14 22:48] LABS: Basophils # (auto) 0.12 K/uL (0.00-0.20); Basophils % (auto) 0.6 %; Eosinophils # (auto) 0.36 K/uL (0.00-0.50); Eosinophils % (auto) 1.8 %; Hematocrit (blood only) 44.3 % (37.0-47.0); Hemoglobin 14.2 g/dl (12.0-16.0); Immature Granulocytes # (auto) 0.14 K/uL (0.01-0.20); Immature Granulocytes % (auto) 0.7 %; Lymphocytes # (auto) 2.17 K/uL (1.20-3.40); Lymphocytes % (auto) 10.6 %; Mean Corpuscular Hemoglobin 29.6 pg (25.0-34.0); Mean Corpuscular Hgb Conc 32.1 g/dL (32.0-36.0); Mean Corpuscular Volume 92.5 fL (80.0-100.0); Mean Platelet Volume 12.2 fL (9.4-12.4); Monocytes # (auto) 0.55 K/uL (0.11-0.59); Monocytes % (auto) 2.7 %; Neutrophils # (auto) 17.19 K/uL (1.40-6.50); Neutrophils % (auto) 83.6 %; Platelet Count 239 K/uL (130-400); RDW Coefficient of Variation 12.9 % (11.5-14.5); RDW Standard Deviation 43.4 fL (36.4-46.3); Red Blood Count 4.79 M/uL (4.20-5.40); White Blood Count 20.53 K/ul (4.8-10.8)
--- NOTE | 2024-01-14 22:55 | Emergency Department Note ---
History of Present Illness General Chief complaint: Illness Stated complaint: VOMITING, ALTERED MENTAL STATUS, HYPERGYLCEMIA Time Seen by Provider: 01/14/24 22:13 History of Present Illness Maximum Pain Intensity: 8 This is an 83-year-old female presenting to the emergency department for evaluation of elevated blood sugar. The patient is a diabetic and was visiting family today. She previously was on insulin, but did so well with Trulicity that she was taken off insulin. Patient had difficulty filling her Trulicity at 1 point, and had a period of time where she did not have any glucose coverage. Patient was with family today had more activity than normal. She ate more than normal today, and then had episodes of vomiting and diaphoresis. Family checked her blood sugar and it was over 600. Patient has not had any flulike symptoms. She does not report any pain, but does remain nauseated. She rates her discomfort an 8/10. History is primarily provided by family who is at bedside. Home Medications Medication Instructions Recorded Confirmed Type atorvastatin 40 mg tablet 40 mg PO QAM 06/12/18 01/14/24 History levothyroxine 50 mcg tablet 50 mcg PO QAM 06/12/18 01/14/24 History lisinopril 40 mg tablet 40 mg PO QAM 06/12/18 01/14/24 History nitroglycerin 0.4 mg sublingual 0.4 mg sublingual DIRECTED 06/12/18 01/14/24 History tablet dulaglutide 4.5 mg/0.5 mL 4.5 mg subcut WK 01/14/24 01/14/24 History subcutaneous pen injector (Trulicity) metoprolol succinate 50 mg 50 mg PO QAM 01/14/24 01/14/24 History tablet,extended release 24 hr Allergies Allergy/AdvReac Type Severity Reaction Status Date / Time latex Allergy Severe SKIN TEARS Verified 01/14/24 23:22 codeine AdvReac Mild UPSET Verified 01/14/24 23:22 STOMACH propoxyphene AdvReac Mild UPSET Verified 01/14/24 23:22 STOMACH Past Med/Surg History Problem List (Updated 01/15/24 @ 05:44 by Herb Medina PA-C) Altered mental status (Acute) Acute hyperglycemia (Acute) DKA (diabetic ketoacidosis) (Acute) Encounter for pre-operative examination Right-sided chest pain Hypertensive urgency DVT prophylaxis Urinary frequency Chronic diarrhea CAD (coronary artery disease) (Chronic) 2014-NICHOLAS to RCA HTN (hypertension) (Chronic 09/08/13) History of CVA (cerebrovascular accident) (Chronic) poor historian- unsure when, denies deficits Diabetes mellitus type 2 in nonobese (Chronic) CKD (chronic kidney disease) stage 3, GFR 30-59 ml/min (Chronic) Hypothyroidism (Chronic) Senile dementia (Chronic) Slow transit constipation (Chronic) Osteoporosis (Chronic) Dyslipidemia (Chronic) Medical History Hx of myocardial infarction 2014 -followed by card cath Nausea and vomiting after administration of anesthetic agent Surgical History Hx of colonoscopy Hx of cardiac catheterization 2013- 2 stents- follows with [facility] cardio, yearly visits Family History Father Diabetes Social History Smoking Status: Former smoker Second Hand Exposure: No; Do You Dip or Chew Tobacco: No; Tobacco Cessation Education Requested by Patient: No Hx Alcohol Use: No Hx Substance Use: No Preferred Language: Central African Communication Ability: Effective Staff Climate Scientist Required: No Beliefs That Will Affect Care: None Current Living Situation: Alone Current Living Situation Comment: 2 story home, master bedroom on second floor. Other Information That Helps Us Care for You: No Feels Safe at Home: Yes Safety Concerns: Feels Safe At This Time Assistive Devices: None Review of Systems A total of 10 systems reviewed and were otherwise negative Physical Exam Vital Signs Vital Signs - 24 hr 01/14/24 21:52 01/14/24 22:22 01/15/24 00:00 Temperature 36.8 C Temperature Source Temporal Artery Scan Pulse Rate 81 73 Pulse Rate [Apical] 78 Pulse Rhythm [Apical] Regular Pulse Strength [Apical] Normal Respiratory Rate 14 21 Respiratory Effort / Characteristics Non-Labored Spontaneous Non-Labored Respiratory Depth Normal Normal Respiratory Pattern Regular Regular Blood Pressure 116/84 Blood Pressure [Left Arm] 182/75 H Blood Pressure Mean 94 Blood Pressure Mean [Left Arm] 110 Blood Pressure Position [Left Arm] Lying Pulse Oximetry 100 98 Oxygen Delivery Method Room Air Room Air Sepsis Recent Fever Within 48 Hours No Sepsis New/Unexplained Change in Mental Status No Sepsis Action Taken by Nursing No Action Required 01/15/24 01:00 01/15/24 02:00 01/15/24 03:00 Temperature Temperature Source Pulse Rate Pulse Rate [Apical] 80 79 79 Pulse Rhythm [Apical] Regular Regular Regular Pulse Strength [Apical] Normal Normal Normal Respiratory Rate 16 22 20 Respiratory Effort / Characteristics Non-Labored Non-Labored Non-Labored Respiratory Depth Normal Normal Normal Respiratory Pattern Regular Regular Regular Blood Pressure Blood Pressure [Left Arm] 155/90 H 150/112 H 144/82 H Blood Pressure Mean Blood Pressure Mean [Left Arm] 111 124 102 Blood Pressure Position [Left Arm] Lying Lying Lying Pulse Oximetry 98 97 98 Oxygen Delivery Method Room Air Room Air Room Air Sepsis Recent Fever Within 48 Hours Sepsis New/Unexplained Change in Mental Status Sepsis Action Taken by Nursing VITALS: Vitals are noted on the nurse's note and reviewed by myself. Vital signs stable. GENERAL: Elderly white female who appears ill on presentation. She is very hard of hearing. HEAD: Normocephalic atraumatic. MOUTH: Mucous membranes dry NECK: Supple without nuchal rigidity. No lymphadenopathy. No thyromegaly. Cervical spine is nontender. HEART: Regular rate and rhythm without murmurs gallops or rubs. LUNGS: Clear to auscultation bilaterally without wheezes, rales or rhonchi. No retractions or accessory muscle use. ABDOMEN: Positive normal bowel sounds x 4. Soft, nontender, without masses or organomegaly. No guarding or rebound tenderness. MUSCULOSKELETAL: No muscle atrophy, erythema, or edema noted. Full range of motion in all extremities. NEURO: Patient was alert and oriented to person place and time. CN II through XII grossly intact. Course Administered Medications Insulin Human Regular 250 (units/ Sodium Chloride) 250 mls @ 5.8 mls/hr IV .Q24H [facility]; Protocol Stop: 02/13/24 22:29 Last Titration: 01/15/24 05:38 Dose: 8.1 units/hr, 8.1 mls/hr Documented By: EDGAR Co-signed By: Admin: 01/15/24 04:57 Dose: Not Given Documented By: Titration: 01/15/24 04:51 Dose: 5.8 units/hr, 5.8 mls/hr Documented By: EDGAR Co-signed By: EUGENIO Titration: 01/15/24 03:41 Dose: 7.2 units/hr, 7.2 mls/hr Documented By: EDGAR Co-signed By: Titration: 01/15/24 02:53 Dose: 6 units/hr, 6 mls/hr Documented By: EDGAR Co-signed By: LUCIANA Admin: 01/14/24 23:43 Dose: 5 units/hr, 5 mls/hr Documented By: EDGAR Co-signed By: KORY Potassium Chloride 20 meq/ (Lactated Ringer's) 1,010 mls @ 150 mls/hr IV .Q6H44M STA Stop: 01/15/24 08:39 Last Admin: 01/15/24 03:15 Dose: 150 mls/hr Documented By: EDGAR Discontinued Medications Sodium Chloride (Nss) 1,000 mls @ 999 mls/hr IV .Q1H1M ROM Stop: 01/14/24 23:30 Last Infusion: 01/15/24 00:00 Dose: Infused Documented By: Admin: 01/14/24 22:39 Dose: 999 mls/hr Documented By: EMA Piperacillin Sod/Tazobactam Sod (Zosyn) 4.5 gm in 100 mls @ 200 mls/hr IV NOW STA; Protocol Stop: 01/15/24 03:14 Last Infusion: 01/15/24 05:10 Dose: Infused Documented By: Admin: 01/15/24 04:38 Dose: 200 mls/hr Documented By: EDGAR Insulin Human Regular (Novolin-R Bolus From Bag) 5 units IV ONE ONE Stop: 01/14/24 23:16 Last Admin: 01/14/24 23:45 Dose: 5 units Documented By: EDGAR Co-signed By: KORY Metoprolol Tartrate (Metoprolol Tartrate 1 Mg/Ml Vial) 2.5 mg IV NOW STA Stop: 01/15/24 00:30 Last Admin: 01/15/24 00:59 Dose: Not Given Documented By: EDGAR Metoprolol Tartrate (Metoprolol Tartrate 1 Mg/Ml Vial) 2.5 mg IV NOW STA Stop: 01/15/24 03:59 Last Admin: 01/15/24 04:52 Dose: Not Given Documented By: EDGAR Potassium Chloride (Potassium Chloride Crtab 20 Meq Tabcr) 40 meq PO NOW STA Stop: 01/15/24 03:08 Last Admin: 01/15/24 04:38 Dose: Not Given Documented By: Critical Care Time I have personally spent greater than 30 minutes of critical care time in the direct management of this patient. This includes bedside care, interpretation of diagnostic studies, and testing, discussion with consultants, patient, and family members, and other required patient management activities. This 30 minutes is in excess of all separately billable procedures. Medical Decision Making Differential Diagnosis Differential diagnosis: Etiologies such as DKA/HHS, gastroenteritis, food borne illness, infections, appendicitis, diverticulitis, inflammatory bowel disease, obstruction, GI bleed, biliary pathology, cardiac process, intracranial process, as well as others were entertained. Laboratory Data 01/15/24 02:32 01/15/24 03:37 Lab Results 01/14/24 01/14/24 01/14/24 Range/Units 21:55 21:56 22:32 WBC 20.53 H (4.8-10.8) K/ul RBC 4.79 (4.20-5.40) M/uL Hgb 14.2 (12.0-16.0) g/dl Hct 44.3 (37.0-47.0) % MCV 92.5 (80.0-100.0) fL MCH 29.6 (25.0-34.0) pg MCHC 32.1 (32.0-36.0) g/dL RDW Std Deviation 43.4 (36.4-46.3) fL RDW Coeff of Sarah 12.9 (11.5-14.5) % Plt Count 239 (130-400) K/uL MPV 12.2 (9.4-12.4) fL Immature Gran % (Auto) 0.7 % Neut % (Auto) 83.6 % Lymph % (Auto) 10.6 % [place] % (Auto) 2.7 % Eos % (Auto) 1.8 % Baso % (Auto) 0.6 % Neut # (Auto) 17.19 H (1.40-6.50) K/uL Lymph # (Auto) 2.17 (1.20-3.40) K/uL [place] # (Auto) 0.55 (0.11-0.59) K/uL Eos # (Auto) 0.36 (0.00-0.50) K/uL Baso # (Auto) 0.12 (0.00-0.20) K/uL Immature Gran # (Auto) 0.14 (0.01-0.20) K/uL APTT (21-31) Seconds PTT Ratio VBG pH 7.13 L (7.36-7.41) VBG pCO2 60 H (38-50) mmHg VBG pO2 36 mmHg VBG HCO3 20 mmol/L VBG O2 Saturation < 60.0 % VBG Base Excess -9.8 mEq/L Sodium 133 L (136-145) mmol/L Potassium 4.1 (3.5-5.1) mmol/L Chloride 99 (98-107) mmol/L Carbon Dioxide 22 (21-32) mmol/L Anion Gap 12 H (3-11) BUN 20 (6-23) mg/dl Creatinine 1.67 H (0.6-1.2) mg/dl Est Cr Clr Drug Dosing 19.5 ml/min Est GFR ( Amer) 32.9 ml/min Est GFR (Non-Af Amer) 28.4 ml/min BUN/Creatinine Ratio 12.0 (10-20) Glucose 826 H* (70-99(Fasting)) mg/dl POC Glucose > 600 H* > 600 H* (70-99) mg/dl Calcium 9.4 (8.6-10.3) mg/dl Phosphorus 5.1 H (2.5-4.9) mg/dl Magnesium 1.8 (1.7-2.4) mg/dl Total Bilirubin 1.5 H (0.2-1.0) mg/dl AST 46 H (13-39) U/L ALT 30 (7-52) U/L Alkaline Phosphatase 124 H (34-104) U/L Troponin I High Sens 14.5 H (0-14) pg/ml Total Protein 6.4 (6.0-8.3) gm/dl Albumin 3.8 (3.4-5.0) gm/dl Globulin 2.6 (2.5-4.0) gm/dl Albumin/Globulin Ratio 1.5 (0.9-2) Lipase 79 (11-82) U/L Procalcitonin 0.12 (0-0.5) ng/ml Stl C. cayetanensis PCR (NotDetected) Stool Rotavirus A PCR (NotDetected) Stl Adenov F 40/41 PCR (NotDetected) Stool Astrovirus (PCR) (NotDetected) Stool Campylobacter PCR (NotDetected) Stl C. diff Tox B Gene (Neg) Stool Cryptosporidium PCR (NotDetected) Stl E.coli Shiga Tox PCR (NotDetected) Stl Enterotoxigenic E PCR (NotDetected) Stool EPEC (PCR) (NotDetected) Stool EAEC (PCR) (NotDetected) Stl E. histolytica PCR (NotDetected) Stool Giardia Lamblia PCR (NotDetected) Stool Salmonella PCR (NotDetected) Stool Sapovirus (PCR) (NotDetected) Stl P. shigelloides PCR (NotDetected) Stl Shigella/EIEC PCR (NotDetected) St Y.enterocolitica PCR (NotDetected) Stool Vibrio (PCR) (NotDetected) Stl Vibrio cholerae PCR (NotDetected) Stl Norovirus GI/GII PCR (NotDetected) Blood Type Antibody Screen 01/15/24 01/15/24 01/15/24 Range/Units 00:40 01:07 01:50 WBC (4.8-10.8) K/ul RBC (4.20-5.40) M/uL Hgb (12.0-16.0) g/dl Hct (37.0-47.0) % MCV (80.0-100.0) fL MCH (25.0-34.0) pg MCHC (32.0-36.0) g/dL RDW Std Deviation (36.4-46.3) fL RDW Coeff of Sarah (11.5-14.5) % Plt Count (130-400) K/uL MPV (9.4-12.4) fL Immature Gran % (Auto) % Neut % (Auto) % Lymph % (Auto) % [place] % (Auto) % Eos % (Auto) % Baso % (Auto) % Neut # (Auto) (1.40-6.50) K/uL Lymph # (Auto) (1.20-3.40) K/uL [place] # (Auto) (0.11-0.59) K/uL Eos # (Auto) (0.00-0.50) K/uL Baso # (Auto) (0.00-0.20) K/uL Immature Gran # (Auto) (0.01-0.20) K/uL APTT (21-31) Seconds PTT Ratio VBG pH (7.36-7.41) VBG pCO2 (38-50) mmHg VBG pO2 mmHg VBG HCO3 mmol/L VBG O2 Saturation % VBG Base Excess mEq/L Sodium 135 L (136-145) mmol/L Potassium 3.4 L (3.5-5.1) mmol/L Chloride 101 (98-107) mmol/L Carbon Dioxide 20 L (21-32) mmol/L Anion Gap 14 H (3-11) BUN 21 (6-23) mg/dl Creatinine 1.71 H (0.6-1.2) mg/dl Est Cr Clr Drug Dosing 19.0 ml/min Est GFR ( Amer) 32.0 ml/min Est GFR (Non-Af Amer) 27.6 ml/min BUN/Creatinine Ratio 12.3 (10-20) Glucose 719 H* (70-99(Fasting)) mg/dl POC Glucose > 600 H* (70-99) mg/dl Calcium 9.2 (8.6-10.3) mg/dl Phosphorus (2.5-4.9) mg/dl Magnesium (1.7-2.4) mg/dl Total Bilirubin (0.2-1.0) mg/dl AST (13-39) U/L ALT (7-52) U/L Alkaline Phosphatase (34-104) U/L Troponin I High Sens Cancelled (0-14) pg/ml Total Protein (6.0-8.3) gm/dl Albumin (3.4-5.0) gm/dl Globulin (2.5-4.0) gm/dl Albumin/Globulin Ratio (0.9-2) Lipase (11-82) U/L Procalcitonin (0-0.5) ng/ml Stl C. cayetanensis PCR Not Detected (NotDetected) Stool Rotavirus A PCR Not Detected (NotDetected) Stl Adenov F 40/41 PCR Not Detected (NotDetected) Stool Astrovirus (PCR) Not Detected (NotDetected) Stool Campylobacter PCR Not Detected (NotDetected) Stl C. diff Tox B Gene Negative Cdiff Gene (Neg) Stool Cryptosporidium PCR Not Detected (NotDetected) Stl E.coli Shiga Tox PCR Not Detected (NotDetected) Stl Enterotoxigenic E PCR Not Detected (NotDetected) Stool EPEC (PCR) Not Detected (NotDetected) Stool EAEC (PCR) Not Detected (NotDetected) Stl E. histolytica PCR Not Detected (NotDetected) Stool Giardia Lamblia PCR Not Detected (NotDetected) Stool Salmonella PCR Not Detected (NotDetected) Stool Sapovirus (PCR) Not Detected (NotDetected) Stl P. shigelloides PCR Not Detected (NotDetected) Stl Shigella/EIEC PCR Not Detected (NotDetected) St Y.enterocolitica PCR Not Detected (NotDetected) Stool Vibrio (PCR) Not Detected (NotDetected) Stl Vibrio cholerae PCR Not Detected (NotDetected) Stl Norovirus GI/GII PCR Not Detected (NotDetected) Blood Type Antibody Screen 01/15/24 01/15/24 Range/Units 02:31 02:32 WBC (4.8-10.8) K/ul RBC (4.20-5.40) M/uL Hgb 16.0 (12.0-16.0) g/dl Hct 47.6 H (37.0-47.0) % MCV (80.0-100.0) fL MCH (25.0-34.0) pg MCHC (32.0-36.0) g/dL RDW Std Deviation (36.4-46.3) fL RDW Coeff of Sarah (11.5-14.5) % Plt Count (130-400) K/uL MPV (9.4-12.4) fL Immature Gran % (Auto) % Neut % (Auto) % Lymph % (Auto) % [place] % (Auto) % Eos % (Auto) % Baso % (Auto) % Neut # (Auto) (1.40-6.50) K/uL Lymph # (Auto) (1.20-3.40) K/uL [place] # (Auto) (0.11-0.59) K/uL Eos # (Auto) (0.00-0.50) K/uL Baso # (Auto) (0.00-0.20) K/uL Immature Gran # (Auto) (0.01-0.20) K/uL APTT 26 (21-31) Seconds PTT Ratio 1.0 VBG pH 7.17 L (7.36-7.41) VBG pCO2 54 H (38-50) mmHg VBG pO2 26 mmHg VBG HCO3 20 mmol/L VBG O2 Saturation < 60.0 % VBG Base Excess -9.2 mEq/L Sodium (136-145) mmol/L Potassium (3.5-5.1) mmol/L Chloride (98-107) mmol/L Carbon Dioxide (21-32) mmol/L Anion Gap (3-11) BUN (6-23) mg/dl Creatinine (0.6-1.2) mg/dl Est Cr Clr Drug Dosing ml/min Est GFR ( Amer) ml/min Est GFR (Non-Af Amer) ml/min BUN/Creatinine Ratio (10-20) Glucose (70-99(Fasting)) mg/dl POC Glucose (70-99) mg/dl Calcium (8.6-10.3) mg/dl Phosphorus (2.5-4.9) mg/dl Magnesium (1.7-2.4) mg/dl Total Bilirubin (0.2-1.0) mg/dl AST (13-39) U/L ALT (7-52) U/L Alkaline Phosphatase (34-104) U/L Troponin I High Sens (0-14) pg/ml Total Protein (6.0-8.3) gm/dl Albumin (3.4-5.0) gm/dl Globulin (2.5-4.0) gm/dl Albumin/Globulin Ratio (0.9-2) Lipase (11-82) U/L Procalcitonin (0-0.5) ng/ml Stl C. cayetanensis PCR (NotDetected) Stool Rotavirus A PCR (NotDetected) Stl Adenov F 40/41 PCR (NotDetected) Stool Astrovirus (PCR) (NotDetected) Stool Campylobacter PCR (NotDetected) Stl C. diff Tox B Gene (Neg) Stool Cryptosporidium PCR (NotDetected) Stl E.coli Shiga Tox PCR (NotDetected) Stl Enterotoxigenic E PCR (NotDetected) Stool EPEC (PCR) (NotDetected) Stool EAEC (PCR) (NotDetected) Stl E. histolytica PCR (NotDetected) Stool Giardia Lamblia PCR (NotDetected) Stool Salmonella PCR (NotDetected) Stool Sapovirus (PCR) (NotDetected) Stl P. shigelloides PCR (NotDetected) Stl Shigella/EIEC PCR (NotDetected) St Y.enterocolitica PCR (NotDetected) Stool Vibrio (PCR) (NotDetected) Stl Vibrio cholerae PCR (NotDetected) Stl Norovirus GI/GII PCR (NotDetected) Blood Type B Positive Antibody Screen NEGATIVE Imaging Data Radiologist's Impression: Abdomen/Pelvis CT 01/15/24 00:29 Exam(s): CT ABDOMEN + PELVIS Without Contrast EXAM: CT Abdomen and Pelvis Without Intravenous Contrast CLINICAL HISTORY: Reason for exam: abd pin, lgib. TECHNIQUE: Axial computed tomography images of the abdomen and pelvis without intravenous contrast. CTDI is 13 mGy and DLP is 651 mGy-cm. Automated exposure control was utilized for the study. A dose lowering technique was utilized adhering to the principles of ALARA. COMPARISON: No relevant prior studies available. FINDINGS: Lung bases: Unremarkable. No mass. No consolidation. Heart: Coronary artery atherosclerosis. Trace pericardial effusion. No cardiomegaly. ABDOMEN: Liver: Unremarkable. Gallbladder and bile ducts: Cholelithiasis, gallbladder distention, and borderline gallbladder wall thickness. No biliary dilatation. Pancreas: Unremarkable. No ductal dilation. Spleen: Chronic granulomatous disease of the spleen. Adrenals: Unremarkable. No mass. Kidneys and ureters: Unremarkable. No obstructing stones. No hydronephrosis. Stomach and bowel: Pancolonic wall thickening and pericolic fat stranding, greatest in the left hemicolon. No bowel obstruction. PELVIS: Appendix: Normal appendix. Bladder: Decompressed urinary bladder, limiting evaluation. No stones. Reproductive: Hysterectomy. ABDOMEN and PELVIS: Intraperitoneal space: Unremarkable. No free air, significant free fluid, or fluid collection. Bones/joints: No acute fracture or dislocation. Right total hip arthroplasty. Soft tissues: Unremarkable. Vasculature: Atherosclerosis. No aortic aneurysm. Lymph nodes: Unremarkable. No enlarged lymph nodes. IMPRESSION: 1. Pancolonic wall thickening and pericolic fat stranding, greatest in the left hemicolon. Appearance is consistent with infectious or inflammatory colitis. 2. Cholelithiasis, gallbladder distention, and borderline gallbladder wall thickness. Correlate clinically for cholecystitis. Electronically signed by: Jean Paris M.D. 01/15/24 02:15 AM MDM Narrative Physical exam and history were performed. Nursing notes, EMR, and Medication List were personally reviewed. No social concerns were identified as barriers to patients care. Patient appears to have significantly elevated blood sugar. Nursing approached me immediately upon patient arrival to the ER as she is a priority patient. On initial exam she appears unwell. IV access was established and labs were obtained. She was hydrated with normal saline. IV insulin protocol was initiated. Patient's blood work is as above and was reviewed. She does have an elevated white blood cell count of greater than 20,000. She does not have significant anemia. Lab glucose is over 800. Patient is acidotic at 7.13. Transaminases not diagnostic. She does appear to have some mild PAYTON as well as slight elevation of her troponin. Patient does not appear well. IV insulin was initiated. Case was discussed with my attending. Escalation of care is felt to be necessary. Patient case was discussed with the on-call hospitalist team who agreed to evaluate the patient here in the ER. Please see their dictation for further patient course, plan, disposition. The chart was completed utilizing [employer] Speech Voice Recognition Software. Grammatical errors, random word insertions, pronoun errors, and incomplete sentences are an occasional consequence of this system due to software limitations, ambient noise, and hardware issues. Any formal questions or concerns about the content, text, or information contained within the body of this dictation should be directly addressed to the provider for clarification. . Impression & Plan DKA (diabetic ketoacidosis), Acute hyperglycemia, Altered mental status Discharge Plan Visit Data Chief Complaint: Illness Stated Complaint: VOMITING, ALTERED MENTAL STATUS, HYPERGYLCEMIA ED Provider: Floyd Caro ED Midlevel Provider: Herb Medina Discharge Problem: DKA (diabetic ketoacidosis), Acute hyperglycemia, Altered mental status Discharge Instructions Interventions: ED Discharge Assessment Last Done: 01/15/24 03:55
[2024-01-14] MEDS ORDERED: CARBOHYDRATES FOR HYPOGLYCEMIA PO PRN (23:15)
[2024-01-14] MEDS ORDERED: GLUCOSE 10 TAB/TUBE PO PRN (23:15)
[2024-01-14] MEDS ORDERED: DEXTROSE 50% 50 ML SYRINGE IV PRN (23:15)
[2024-01-14] MEDS ORDERED: GLUCAGON FOR INJ 1 MG VIAL IM PRN (23:15)
[2024-01-14] MEDS ORDERED: GLUCOSE 40% GEL 15 GM TUBE PO PRN (23:15)
[2024-01-14] MEDS: INSULIN REGULAR 250 UNITS in SODIUM CHLORIDE 0.9% 247.5 ML IV SCH (23:43)
[2024-01-14] MEDS: NovoLIN-R BOLUS FROM BAG IV ONE (23:45)
[2024-01-14 23:46] LABS: Albumin Globulin Ratio 1.5 (0.9-2); Albumin Level 3.8 gm/dl (3.4-5.0); Bilirubin,Total 1.5 mg/dl (0.2-1.0); Calcium 9.4 mg/dl (8.6-10.3); Creatinine Clr Calc Pharmacy 19.5 ml/min; Est GFR (African American) 32.9 ml/min; Est GFR (Non-African American) 28.4 ml/min; Globulin 2.6 gm/dl (2.5-4.0); Magnesium 1.8 mg/dl (1.7-2.4); Phosphorus 5.1 mg/dl (2.5-4.9); Potassium 4.1 mmol/L (3.5-5.1); Total Protein 6.4 gm/dl (6.0-8.3); Troponin I High Sensitivity 14.5 pg/ml (0-14)
[2024-01-15] MEDS: METOPROLOL TARTRATE 1 MG/ML VIAL IV STA ×2 (00:59→04:52)
--- NOTE | 2024-01-15 02:16 | CT Scan Report ---
Exam(s): CT ABDOMEN + PELVIS Without Contrast EXAM: CT Abdomen and Pelvis Without Intravenous Contrast CLINICAL HISTORY: Reason for exam: abd pin, lgib. TECHNIQUE: Axial computed tomography images of the abdomen and pelvis without intravenous contrast. CTDI is 13 mGy and DLP is 651 mGy-cm. Automated exposure control was utilized for the study. A dose lowering technique was utilized adhering to the principles of ALARA. COMPARISON: No relevant prior studies available. FINDINGS: Lung bases: Unremarkable. No mass. No consolidation. Heart: Coronary artery atherosclerosis. Trace pericardial effusion. No cardiomegaly. ABDOMEN: Liver: Unremarkable. Gallbladder and bile ducts: Cholelithiasis, gallbladder distention, and borderline gallbladder wall thickness. No biliary dilatation. Pancreas: Unremarkable. No ductal dilation. Spleen: Chronic granulomatous disease of the spleen. Adrenals: Unremarkable. No mass. Kidneys and ureters: Unremarkable. No obstructing stones. No hydronephrosis. Stomach and bowel: Pancolonic wall thickening and pericolic fat stranding, greatest in the left hemicolon. No bowel obstruction. PELVIS: Appendix: Normal appendix. Bladder: Decompressed urinary bladder, limiting evaluation. No stones. Reproductive: Hysterectomy. ABDOMEN and PELVIS: Intraperitoneal space: Unremarkable. No free air, significant free fluid, or fluid collection. Bones/joints: No acute fracture or dislocation. Right total hip arthroplasty. Soft tissues: Unremarkable. Vasculature: Atherosclerosis. No aortic aneurysm. Lymph nodes: Unremarkable. No enlarged lymph nodes. IMPRESSION: 1. Pancolonic wall thickening and pericolic fat stranding, greatest in the left hemicolon. Appearance is consistent with infectious or inflammatory colitis. 2. Cholelithiasis, gallbladder distention, and borderline gallbladder wall thickness. Correlate clinically for cholecystitis. Electronically signed by: Jean Paris M.D. 01/15/24 02:15 AM
[2024-01-15 02:34] LABS: Adenovirus F 40/41 PCR Not Detected (NotDetected); Astrovirus PCR Not Detected (NotDetected); Campylobacter PCR Not Detected (NotDetected); Cryptosporidium PCR Not Detected (NotDetected); Cyclospora cayetanensis PCR Not Detected (NotDetected); Entamoeba histolytica PCR Not Detected (NotDetected); Enteroaggregative E.coli(EAEC) Not Detected (NotDetected); Enteropathogenic E.coli (EPEC) Not Detected (NotDetected); Enterotoxigenic E.coli (ETEC) Not Detected (NotDetected); Giardia lamblia PCR Not Detected (NotDetected); Norovirus GI/GII PCR Not Detected (NotDetected); Plesiomonas shigelloides PCR Not Detected (NotDetected); Rotavirus A PCR Not Detected (NotDetected); Salmonella PCR Not Detected (NotDetected); Sapovirus PCR Not Detected (NotDetected); Shiga-like Toxin E.coli (STEC) Not Detected (NotDetected); Shigella/Enteroinvasive E.coli Not Detected (NotDetected); Vibrio cholerae PCR Not Detected (NotDetected); Vibrio species PCR Not Detected (NotDetected); Yersinia enterocolitica PCR Not Detected (NotDetected)
[2024-01-15 02:40] LABS: Calcium 9.2 mg/dl (8.6-10.3); Potassium 3.4 mmol/L (3.5-5.1)
[2024-01-15 02:43] LABS: Base Excess VBG -9.2 mEq/L; HCO3 VBG 20 mmol/L; Oxygen Saturation VBG < 60.0 %; PCO2 VBG 54 mmHg (38-50); PO2 VBG 26 mmHg; pH VBG 7.17 (7.36-7.41)
[2024-01-15] MEDS ORDERED: PIPERACILLIN/TAZOBACTAM 4.5 GM in DEXTROSE 5% MINI-B 100 ML IV STA (02:44)
[2024-01-15 02:48] LABS: BUN Creatinine Ratio 12.3 (10-20); Est GFR (Non-African American) 27.6 ml/min
[2024-01-15 02:50] LABS: Hematocrit (blood only) 47.6 % (37.0-47.0)
--- NOTE | 2024-01-15 03:03 | History & Physical Report ---
Date of Service January 15, 2024 Assessment & Plan (1) Hyperglycemic crisis in diabetes mellitus: Plan: History DM2 insulin requiring, suboptimal control as of recent hemoglobin A1c of 7.26 August 2023 Multifactorial : recent issue regarding medication procurement as per family Hemorrhagic colitis Hypertensive urgency secondary to illness ARF secondary to illness hx CAD status post stent/PVD/CVA Hyperlipidemia on statin Rx Hypothyroidism, euthyroid as of recent outpatient TSH mood disorder, at baseline dementia as per records, patient mentating well Admit to medical telemetry given BP elevation IV insulin for now Pharmacy glycemic control consultation already ordered by ED provider Update hemoglobin A1c Zosyn GI consult re: hemorrhagic colitis Follow H&H, transfuse PRBC if hemoglobin less than 8 and or for symptomatic anemia Analgesia, IV Lopressor 1 dose now given BP elevation Baseline UA, monitor creatinine response to IVF, hold lisinopril for now until creatinine back to baseline DVT prophylaxis. SCDs Re: GI bleed Full code Patient daughter requesting updates providers. Ms. Shelly Cardona, contact #[phone]. Text document was generated using [employer] voice recognition software. It may contain grammatical or spelling errors. Kindly contact undersigned for clarification of any documentation item in question. History of Present Illness Chief Complaint: Abdominal pain, bloody diarrhea, vomiting Primary Care Provider: Austin Long MD History obtained from patient, family, and records. Medical history significant for CAD status post stent, PVD, CVA, hypertension, hyperlipidemia, DM2 on oral medications, hypothyroidism, history IBS diarrhea predominant as per records, mood disorder, dementia. Last confinement May 2018 for atypical chest pain and uncontrolled hypertension. Patient had sudden onset achy abdominal pain followed by blood streaked diarrh ea, nausea and projectile vomiting symptoms while visiting sisters home yesterday. Patient consumed a root beer float from a restaurant prior to going to sister's home. No recent antibiotics or sick contacts to her knowledge as per patient. Denies chest pain, SOB, headache. Patient did not want to come to ER until family persuaded her. BSG 800s, SBP 180s upon arrival at the ER IV insulin initiated at the ER. Blood sugar 300s at home as per patient. Recent issue procuring Trulicity medication as per family. Medical History as above Surgical History : Cataract surgeries, hip surgery, eyelid surgery section, hysterectomy Family History : Stroke DM, heart disease, breast cancer Personal/Social history : Non-smoker, rare EtOH intake, businesswoman Allergies Allergy/AdvReac Type Severity Reaction Status Date / Time latex Allergy Severe SKIN TEARS Verified 01/14/24 23:22 codeine AdvReac Mild UPSET Verified 01/14/24 23:22 STOMACH propoxyphene AdvReac Mild UPSET Verified 01/14/24 23:22 STOMACH Home Medications Medication Instructions Recorded Confirmed Type atorvastatin 40 mg tablet 40 mg PO QAM 06/12/18 01/14/24 History levothyroxine 50 mcg tablet 50 mcg PO QAM 06/12/18 01/14/24 History lisinopril 40 mg tablet 40 mg PO QAM 06/12/18 01/14/24 History nitroglycerin 0.4 mg sublingual 0.4 mg sublingual DIRECTED 06/12/18 01/14/24 History tablet dulaglutide 4.5 mg/0.5 mL 4.5 mg subcut WK 01/14/24 01/14/24 History subcutaneous pen injector (Trulicity) metoprolol succinate 50 mg 50 mg PO QAM 01/14/24 01/14/24 History tablet,extended release 24 hr Past Med/Surg History Problem List (Updated 01/15/24 @ 11:12 by Jose Stock Jr, MD) Nausea and vomiting Hyperglycemic crisis in diabetes mellitus Altered mental status (Acute) Acute hyperglycemia (Acute) DKA (diabetic ketoacidosis) (Acute) Encounter for pre-operative examination Right-sided chest pain Hypertensive urgency DVT prophylaxis Urinary frequency Chronic diarrhea CAD (coronary artery disease) (Chronic) 2013-NICHOLAS to RCA HTN (hypertension) (Chronic 09/08/13) History of CVA (cerebrovascular accident) (Chronic) poor historian- unsure when, denies deficits Diabetes mellitus type 2 in nonobese (Chronic) CKD (chronic kidney disease) stage 3, GFR 30-59 ml/min (Chronic) Hypothyroidism (Chronic) Senile dementia (Chronic) Slow transit constipation (Chronic) Osteoporosis (Chronic) Dyslipidemia (Chronic) Medical History Hx of myocardial infarction 2013 -followed by card cath Nausea and vomiting after administration of anesthetic agent Surgical History Hx of colonoscopy Hx of cardiac catheterization 2014- 2 stents- follows with [facility] cardio, yearly visits Family History Father Diabetes Social History Smoking Status: Former smoker Second Hand Exposure: No; Do You Dip or Chew Tobacco: No; Tobacco Cessation Education Requested by Patient: No Hx Alcohol Use: No Hx Substance Use: No Preferred Language: Estonian Communication Ability: Effective Retail Management Keyholder Required: No Beliefs That Will Affect Care: None Current Living Situation: Alone Current Living Situation Comment: 2 story home, master bedroom on second floor. Other Information That Helps Us Care for You: No Feels Safe at Home: Yes Safety Concerns: Feels Safe At This Time Assistive Devices: None Review of Systems 2 Review of Systems: As per HPI, all other systems reviewed and negative Physical Exam Physical Exam: GENERAL: Comfortable, slightly anxious, no respiratory distress SKIN: Normal color, warm HEENT: [place] palpebral conjunctivae, no ptosis, dry buccal mucosa NECK : Supple, no tenderness CHEST : CTA, no tenderness HEART : RRR, no obvious murmurs ABDOMEN: Some distention, hypogastric tenderness EXTREMITIES : No LE swelling/tenderness, no other conspicuous deformities noted NEUROLOGIC : Coherent, no facial asymmetry, no other gross focality Results & Data Results & Data Vital Signs (Past 12 Hours) Vital Signs Temp Pulse Pulse Resp BP BP Pulse Ox 01/15/24 00:00 78 21 182/75 H 98 01/14/24 22:22 73 01/14/24 21:52 36.8 C 81 14 116/84 100 O2 Del Method 01/15/24 00:00 Room Air 01/14/24 22:22 01/14/24 21:52 Room Air Laboratory Results Laboratory Results WBC 20.53 K/ul (4.8-10.8) H 01/14/24 22:32 RBC 4.79 M/uL (4.20-5.40) 01/14/24 22:32 Hgb 16.0 g/dl (12.0-16.0) 01/15/24 02:32 Hct 47.6 % (37.0-47.0) H 01/15/24 02:32 MCV 92.5 fL (80.0-100.0) 01/14/24 22: MCH 29.6 pg (25.0-34.0) 01/14/24: MCHC 32.1 g/dL (32.0-36.0) 01/14/24 22: RDW Std Deviation 43.4 fL (36.4-46.3) 01/14/24: RDW Coeff of Sarah 12.9 % (11.5-14.5) 01/14/24: Plt Count 239 K/uL (130-400) 01/14/24 22: MPV 12.2 fL (9.4-12.4) 01/14/24: Immature Gran % (Auto) 0.7 % 01/14/24: Neut % (Auto) 83.6 % 01/14/24: Lymph % (Auto) 10.6 % 01/14/24: [place] % (Auto) 2.7 % 01/14/24: Eos % (Auto) 1.8 % 01/14/24: Baso % (Auto) 0.6 % 01/14/24: Neut # (Auto) 17.19 K/uL (1.40-6.50) H 01/14/24 22: Lymph # (Auto) 2.17 K/uL (1.20-3.40) 01/14/24 22: [place] # (Auto) 0.55 K/uL (0.11-0.59) 01/14/24: Eos # (Auto) 0.36 K/uL (0.00-0.50) 01/14/24 22: Baso # (Auto) 0.12 K/uL (0.00-0.20) 01/14/24: Immature Gran # (Auto) 0.14 K/uL (0.01-0.20) 01/14/24 22:32 VBG pH 7.17 (7.36-7.41) L 01/15/24 02:32 VBG pCO2 54 mmHg (38-50) H 01/15/24 02:32 VBG pO2 26 mmHg 01/15/24 02:32 VBG HCO3 20 mmol/L 01/15/24 02:32 VBG O2 Saturation < 60.0 % 01/15/24 02:32 VBG Base Excess -9.2 mEq/L 01/15/24 02:32 Sodium 135 mmol/L (136-145) L 01/15/24 01:50 Potassium 3.4 mmol/L (3.5-5.1) L 01/15/24 01:50 Chloride 101 mmol/L (98-107) 01/15/24 01:50 Carbon Dioxide 20 mmol/L (21-32) L 01/15/24 01:50 Anion Gap 14 (3-11) H 01/15/24 01:50 BUN 21 mg/dl (6-23) 01/15/24 01:50 Creatinine 1.71 mg/dl (0.6-1.2) H 01/15/24 01:50 Est Cr Clr Drug Dosing 19.0 ml/min 01/15/24 01:50 Est GFR ( Amer) 32.0 ml/min 01/15/24 01:50 Est GFR (Non-Af Amer) 27.6 ml/min 01/15/24 01:50 BUN/Creatinine Ratio 12.3 (10-20) 01/15/24 01:50 Glucose 719 mg/dl (70-99(Fasting)) H* 01/15/24 01:50 POC Glucose > 600 mg/dl (70-99) H* 01/15/24 01:07 Calcium 9.2 mg/dl (8.6-10.3) 01/15/24 01:50 Phosphorus 5.1 mg/dl (2.5-4.9) H 01/14/24 22:32 Magnesium 1.8 mg/dl (1.7-2.4) 01/14/24 22:32 Total Bilirubin 1.5 mg/dl (0.2-1.0) H 01/14/24 22:32 AST 46 U/L (13-39) H 01/14/24 22:32 ALT 30 U/L (7-52) 01/14/24 22:32 Alkaline Phosphatase 124 U/L (34-104) H 01/14/24 22:32 Troponin I High Sens Cancelled 01/15/24 01:50 Total Protein 6.4 gm/dl (6.0-8.3) 01/14/24 22:32 Albumin 3.8 gm/dl (3.4-5.0) 01/14/24 22:32 Globulin 2.6 gm/dl (2.5-4.0) 01/14/24 22:32 Albumin/Globulin Ratio 1.5 (0.9-2) 01/14/24 22:32 Lipase 79 U/L (11-82) 01/14/24 22:32 Procalcitonin 0.12 ng/ml (0-0.5) 01/14/24 22:32 Stl C. cayetanensis PCR Not Detected (NotDetected) 01/15/24 00:40 Stool Rotavirus A PCR Not Detected (NotDetected) 01/15/24 00:40 Stl Adenov F 4041 PCR Not Detected (NotDetected) 01/15/24 00:40 Stool Astrovirus (PCR) Not Detected (NotDetected) 01/15/24 00:40 Stool Campylobacter PCR Not Detected (NotDetected) 01/15/24 00:40 Stl C. diff Tox B Gene Negative Cdiff Gene (Neg) 01/15/24 00:40 Stool Cryptosporidium PCR Not Detected (NotDetected) 01/15/24 00:40 Stl E.coli Shiga Tox PCR Not Detected (NotDetected) 01/15/24 00:40 Stl Enterotoxigenic E PCR Not Detected (NotDetected) 01/15/24 00:40 Stool EPEC (PCR) Not Detected (NotDetected) 01/15/24 00:40 Stool EAEC (PCR) Not Detected (NotDetected) 01/15/24 00:40 Stl E. histolytica PCR Not Detected (NotDetected) 01/15/24 00:40 Stool Giardia Lamblia PCR Not Detected (NotDetected) 01/15/24 00:40 Stool Salmonella PCR Not Detected (NotDetected) 01/15/24 00:40 Stool Sapovirus (PCR) Not Detected (NotDetected) 01/15/24 00:40 Stl P. shigelloides PCR Not Detected (NotDetected) 01/15/24 00:40 Stl Shigella/EIEC PCR Not Detected (NotDetected) 01/15/24 00:40 St Y.enterocolitica PCR Not Detected (NotDetected) 01/15/24 00:40 Stool Vibrio (PCR) Not Detected (NotDetected) 01/15/24 00:40 Stl Vibrio cholerae PCR Not Detected (NotDetected) 01/15/24 00:40 Stl Norovirus GI/GII PCR Not Detected (NotDetected) 01/15/24 00:40 Impressions Abdomen/Pelvis CT 01/15/24 00:29 Exam(s): CT ABDOMEN + PELVIS Without Contrast EXAM: CT Abdomen and Pelvis Without Intravenous Contrast CLINICAL HISTORY: Reason for exam: abd pin, lgib. TECHNIQUE: Axial computed tomography images of the abdomen and pelvis without intravenous contrast. CTDI is 13 mGy and DLP is 651 mGy-cm. Automated exposure control was utilized for the study. A dose lowering technique was utilized adhering to the principles of ALARA. COMPARISON: No relevant prior studies available. FINDINGS: Lung bases: Unremarkable. No mass. No consolidation. Heart: Coronary artery atherosclerosis. Trace pericardial effusion. No cardiomegaly. ABDOMEN: Liver: Unremarkable. Gallbladder and bile ducts: Cholelithiasis, gallbladder distention, and borderline gallbladder wall thickness. No biliary dilatation. Pancreas: Unremarkable. No ductal dilation. Spleen: Chronic granulomatous disease of the spleen. Adrenals: Unremarkable. No mass. Kidneys and ureters: Unremarkable. No obstructing stones. No hydronephrosis. Stomach and bowel: Pancolonic wall thickening and pericolic fat stranding, greatest in the left hemicolon. No bowel obstruction. PELVIS: Appendix: Normal appendix. Bladder: Decompressed urinary bladder, limiting evaluation. No stones. Reproductive: Hysterectomy. ABDOMEN and PELVIS: Intraperitoneal space: Unremarkable. No free air, significant free fluid, or fluid collection. Bones/joints: No acute fracture or dislocation. Right total hip arthroplasty. Soft tissues: Unremarkable. Vasculature: Atherosclerosis. No aortic aneurysm. Lymph nodes: Unremarkable. No enlarged lymph nodes. IMPRESSION: 1. Pancolonic wall thickening and pericolic fat stranding, greatest in the left hemicolon. Appearance is consistent with infectious or inflammatory colitis. 2. Cholelithiasis, gallbladder distention, and borderline gallbladder wall thickness. Correlate clinically for cholecystitis. Electronically signed by: Jean Paris M.D. 01/15/24 02:15 AM Diagnostic Findings EKG as per my interpretation :Rate 80, NSR, LAD, LAFB, inferior infarct, multiple artifacts
[2024-01-15] MEDS ORDERED: oxyCODONE HCL IR 5 MG TAB (IMMEDIATE RELEASE) PO PRN (03:11)
[2024-01-15] MEDS ORDERED: PROMETHAZINE HCL 6.25 MG in SODIUM CHLORIDE 0.9% 50 ML IV PRN (03:11)
[2024-01-15] MEDS: POTASSIUM CHLORIDE 20 MEQ in LACTATED RINGER'S 1,000 ML IV STA (03:15)
[2024-01-15] MEDS ORDERED: D5NSS + 20MEQ KCL 20 MEQ/1,000 ML BAG IV PRN (03:15)
[2024-01-15 03:30] LABS: Partial Thromboplastin Time 26 Seconds (21-31)
[2024-01-15] MEDS: PIPERACILLIN/TAZOBACTAM 4.5 GM/100 ML BAG IV STA (04:38)
[2024-01-15] MEDS: POTASSIUM CHLORIDE CRTAB 20 MEQ TABCR PO STA (04:38)
[2024-01-15] MEDS: LEVOTHYROXINE SODIUM 50 MCG TABLET PO SCH (06:37)
[2024-01-15 06:54] LABS: Hematocrit (blood only) 45.4 % (37.0-47.0); Hemoglobin 15.8 g/dl (12.0-16.0); Mean Corpuscular Hgb Conc 34.8 g/dL (32.0-36.0); Mean Corpuscular Volume 89.2 fL (80.0-100.0); Mean Platelet Volume 11.8 fL (9.4-12.4); Platelet Count 202 K/uL (130-400); RDW Coefficient of Variation 12.7 % (11.5-14.5); RDW Standard Deviation 41.5 fL (36.4-46.3); Red Blood Count 5.09 M/uL (4.20-5.40); White Blood Count 12.29 K/ul (4.8-10.8)
[2024-01-15 07:20] LABS: Basophils # (auto) 0.04 K/uL (0.00-0.20); Basophils % (auto) 0.3 %; Eosinophils # (auto) 0.01 K/uL (0.00-0.50); Eosinophils % (auto) 0.1 %; Immature Granulocytes # (auto) 0.05 K/uL (0.01-0.20); Immature Granulocytes % (auto) 0.4 %; Lymphocytes % (auto) 4.1 %; Monocytes # (auto) 0.51 K/uL (0.11-0.59); Monocytes % (auto) 4.1 %; Neutrophils # (auto) 11.18 K/uL (1.40-6.50)
[2024-01-15] MEDS: INSULIN ASPART PER UNIT CHARGE SC SCH (07:22)
[2024-01-15 07:35] LABS: Estimated Average Glucose 364 mg/dl; Hemoglobin A1C 14.3 % (4.5-5.6)
[2024-01-15] MEDS: POTASSIUM CHLORIDE 20 MEQ in LACTATED RINGER'S 1,000 ML IV SCH (07:40)
[2024-01-15 08:16] LABS: Creatinine Clr Calc Pharmacy 15.4 ml/min; Est GFR (Non-African American) 21.5 ml/min; Potassium 2.7 mmol/L (3.5-5.1)
--- NOTE | 2024-01-15 08:24 | XRay Report ---
XR chest 1V portable HISTORY: 83 years-old Female renal failure acute renal failure COMPARISON: 06/12/2018 TECHNIQUE: AP view of the chest FINDINGS: Cardiac silhouette is normal. Atherosclerosis of the aorta. No pneumothorax or pleural effusion. Lung s are clear. Bones appear grossly intact. IMPRESSION: No acute process. ACT 112: Negative or not required by law. The above report was generated using voice recognition software. It may contain grammatical, syntax o r spelling errors. Electronically signed by: Tony Snow M.D. 01/15/2024 8:22 AM
[2024-01-15] MEDS: [UNRECOGNIZED DRUG - OTHER] SCH (08:42)
[2024-01-15] MEDS: KCL IVF SCH (08:42)
[2024-01-15] MEDS: METOPROLOL SUCC 50MG EXT REL TAB PO SCH (09:01)
[2024-01-15] MEDS: POTASSIUM CHLORIDE CRTAB 20 MEQ TABCR PO ONE ×2 (09:01→12:36)
[2024-01-15] MEDS: POTASSIUM CHLORIDE / WTR 10 MEQ/100 ML PLCT IV SCH (09:02)
[2024-01-15] MEDS ORDERED: PIPERACILLIN/TAZOBACTAM 4.5 GM in DEXTROSE 5% MINI-B 100 ML IV SCH (10:00)
[2024-01-15 10:40] LABS: BUN Creatinine Ratio 11.6 (10-20); Calcium 9.2 mg/dl (8.6-10.3); Creatinine Clr Calc Pharmacy 15.6 ml/min; Est GFR (African American) 25.4 ml/min; Est GFR (Non-African American) 21.9 ml/min; Potassium 3.3 mmol/L (3.5-5.1)
--- NOTE | 2024-01-15 11:08 | Gastrointestinal Consultation ---
Date of Consultation January 15, 2024 Assessment & Plan (1) Nausea and vomiting: Pleasant elderly lady with abrupt onset of nausea, vomiting and diarrhea with chills which led her into DKA. I think she had an acute gastroenteritis, perhaps food poisoning. Her symptoms do suggest this. She had an unremarkable colonoscopy less than two years ago so I don' think this is a chronic issue. I agree with putting her on antibiotics and would just follow expectantly. I don't plan any evaluation now. 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 She went to "[employer]" and had "breaded chicken". She then went to visit her sister and later on said "I'm going to get sick". She went into the bathroom and started having violent vomiting. Later on she started having diarrhea with blood in it. She felt like she had chills but no fever. She did have a lot of cramping abdominal pain with this spell. She says that she doesn't have chronic problems with her gut but her son says she gets diarrhea every now and then that she controls with imodium. Her last colonoscopy was by Dr. Link in May 2022. As a result of her GI issues she went into DKA. Allergies Allergy/AdvReac Type Severity Reaction Status Date / Time latex Allergy Severe SKIN TEARS Verified 01/14/24 23:22 codeine AdvReac Mild UPSET Verified 01/14/24 23:22 STOMACH propoxyphene AdvReac Mild UPSET Verified 01/14/24 23:22 STOMACH Home Medications Medication Instructions Recorded Confirmed Type atorvastatin 40 mg tablet 40 mg PO QAM 06/12/18 01/14/24 History levothyroxine 50 mcg tablet 50 mcg PO QAM 06/12/18 01/14/24 History lisinopril 40 mg tablet 40 mg PO QAM 06/12/18 01/14/24 History nitroglycerin 0.4 mg sublingual 0.4 mg sublingual DIRECTED 06/12/18 01/14/24 History tablet dulaglutide 4.5 mg/0.5 mL 4.5 mg subcut WK 01/14/24 01/14/24 History subcutaneous pen injector (Trulicity) metoprolol succinate 50 mg 50 mg PO QAM 01/14/24 01/14/24 History tablet,extended release 24 hr Patient History Medical History Hx of myocardial infarction 2013 -followed by card cath Nausea and vomiting after administration of anesthetic agent Surgical History Hx of colonoscopy Hx of cardiac catheterization 2013- 2 stents- follows with [facility] cardio, yearly visits Family History Father Diabetes Social History Smoking Status: Former smoker Second Hand Exposure: No; Do You Dip or Chew Tobacco: No; Tobacco Cessation Education Requested by Patient: No Hx Alcohol Use: No Hx Substance Use: No Preferred Language: Faroese Communication Ability: Effective [employer] Advisor Required: No Beliefs That Will Affect Care: None Current Living Situation: Alone Current Living Situation Comment: 2 story home, master bedroom on second floor. Other Information That Helps Us Care for You: No Feels Safe at Home: Yes Safety Concerns: Feels Safe At This Time Assistive Devices: None Review of Systems Review of Systems: All systems reviewed & are unremarkable except as noted in HPI & below Physical Exam Constitutional: WD/WN, vitals as above Neck: trachea midline, no thyromegaly Respiratory: normal respiratory effort, lungs clear to auscultation Cardiovascular: RRR, no murmur, no edema Gastrointestinal (Abdomen): Percussion/Palpation: + abdomen tender, + guarding and abdomen soft; no hepatosplenomegaly Results & Data Vital Signs (Past 12 Hours) Vital Signs Pulse Pulse Resp BP Pulse Ox O2 Del Method 01/15/24 09:46 89 01/15/24 07:43 87 18 109/90 99 Room Air 01/15/24 06:00 81 22 147/83 H 98 Room Air 01/15/24 05:00 80 20 136/86 98 Room Air 01/15/24 04:00 81 16 151/96 H 98 Room Air 01/15/24 03:29 79 01/15/24 03:00 79 20 144/82 H 98 Room Air 01/15/24 02:00 79 22 150/112 H 97 Room Air 01/15/24 01:00 80 16 155/90 H 98 Room Air 01/15/24 00:00 78 21 182/75 H 98 Room Air Laboratory Results 01/15/24 01/15/24 01/15/24 Range/Units 10:38 10:04 09:55 WBC (4.8-10.8) K/ul RBC (4.20-5.40) M/uL Hgb (12.0-16.0) g/dl Hct (37.0-47.0) % MCV (80.0-100.0) fL MCH (25.0-34.0) pg MCHC (32.0-36.0) g/dL RDW Std Deviation (36.4-46.3) fL RDW Coeff of Sarah (11.5-14.5) % Plt Count (130-400) K/uL MPV (9.4-12.4) fL Immature Gran % (Auto) % Neut % (Auto) % Lymph % (Auto) % Leslie % (Auto) % Eos % (Auto) % Baso % (Auto) % Neut # (Auto) (1.40-6.50) K/uL Lymph # (Auto) (1.20-3.40) K/uL Leslie # (Auto) (0.11-0.59) K/uL Eos # (Auto) (0.00-0.50) K/uL Baso # (Auto) (0.00-0.20) K/uL Immature Gran # (Auto) (0.01-0.20) K/uL APTT (21-31) Seconds PTT Ratio VBG pH 7.22 L (7.36-7.41) VBG pCO2 (38-50) mmHg VBG pO2 mmHg VBG HCO3 mmol/L VBG O2 Saturation % VBG Base Excess mEq/L Sodium 141 (136-145) mmol/L Potassium 3.3 L D (3.5-5.1) mmol/L Chloride 107 (98-107) mmol/L Carbon Dioxide 23 (21-32) mmol/L Anion Gap 11 (3-11) BUN 24 H (6-23) mg/dl Creatinine 2.07 H (0.6-1.2) mg/dl Est Cr Clr Drug Dosing 15.6 ml/min Est GFR ( Amer) 25.4 ml/min Est GFR (Non-Af Amer) 21.9 ml/min BUN/Creatinine Ratio 11.6 (10-20) Glucose 294 H (70-99(Fasting)) mg/dl POC Glucose 250 H (70-99) mg/dl Estimat Average Glucose mg/dl Hemoglobin A1c (4.5-5.6) % Lactate 6.4 H* (0.4-2.0) mmol/L Calcium 9.2 (8.6-10.3) mg/dl Phosphorus (2.5-4.9) mg/dl Magnesium (1.7-2.4) mg/dl Total Bilirubin (0.2-1.0) mg/dl AST (13-39) U/L ALT (7-52) U/L Alkaline Phosphatase (34-104) U/L Troponin I High Sens (0-14) pg/ml Total Protein (6.0-8.3) gm/dl Albumin (3.4-5.0) gm/dl Globulin (2.5-4.0) gm/dl Albumin/Globulin Ratio (0.9-2) Lipase (11-82) U/L Procalcitonin (0-0.5) ng/ml Stl C. cayetanensis PCR (NotDetected) Stool Rotavirus A PCR (NotDetected) Stl Adenov F 40/41 PCR (NotDetected) Stool Astrovirus (PCR) (NotDetected) Stool Campylobacter PCR (NotDetected) Stl C. diff Tox B Gene (Neg) Stool Cryptosporidium PCR (NotDetected) Stl E.coli Shiga Tox PCR (NotDetected) Stl Enterotoxigenic E PCR (NotDetected) Stool EPEC (PCR) (NotDetected) Stool EAEC (PCR) (NotDetected) Stl E. histolytica PCR (NotDetected) Stool Giardia Lamblia PCR (NotDetected) Stool Salmonella PCR (NotDetected) Stool Sapovirus (PCR) (NotDetected) Stl P. shigelloides PCR (NotDetected) Stl Shigella/EIEC PCR (NotDetected) St Y.enterocolitica PCR (NotDetected) Stool Vibrio (PCR) (NotDetected) Stl Vibrio cholerae PCR (NotDetected) Stl Norovirus GI/GII PCR (NotDetected) Blood Type Antibody Screen 01/15/24 01/15/24 01/15/24 Range/Units 09:33 08:31 07:34 WBC (4.8-10.8) K/ul RBC (4.20-5.40) M/uL Hgb (12.0-16.0) g/dl Hct (37.0-47.0) % MCV (80.0-100.0) fL MCH (25.0-34.0) pg MCHC (32.0-36.0) g/dL RDW Std Deviation (36.4-46.3) fL RDW Coeff of Sarah (11.5-14.5) % Plt Count (130-400) K/uL MPV (9.4-12.4) fL Immature Gran % (Auto) % Neut % (Auto) % Lymph % (Auto) % Leslie % (Auto) % Eos % (Auto) % Baso % (Auto) % Neut # (Auto) (1.40-6.50) K/uL Lymph # (Auto) (1.20-3.40) K/uL Leslie # (Auto) (0.11-0.59) K/uL Eos # (Auto) (0.00-0.50) K/uL Baso # (Auto) (0.00-0.20) K/uL Immature Gran # (Auto) (0.01-0.20) K/uL APTT (21-31) Seconds PTT Ratio VBG pH (7.36-7.41) VBG pCO2 (38-50) mmHg VBG pO2 mmHg VBG HCO3 mmol/L VBG O2 Saturation % VBG Base Excess mEq/L Sodium (136-145) mmol/L Potassium (3.5-5.1) mmol/L Chloride (98-107) mmol/L Carbon Dioxide (21-32) mmol/L Anion Gap (3-11) BUN (6-23) mg/dl Creatinine (0.6-1.2) mg/dl Est Cr Clr Drug Dosing ml/min Est GFR ( Amer) ml/min Est GFR (Non-Af Amer) ml/min BUN/Creatinine Ratio (10-20) Glucose (70-99(Fasting)) mg/dl POC Glucose 291 H 345 H* 392 H* (70-99) mg/dl Estimat Average Glucose mg/dl Hemoglobin A1c (4.5-5.6) % Lactate (0.4-2.0) mmol/L Calcium (8.6-10.3) mg/dl Phosphorus (2.5-4.9) mg/dl Magnesium (1.7-2.4) mg/dl Total Bilirubin (0.2-1.0) mg/dl AST (13-39) U/L ALT (7-52) U/L Alkaline Phosphatase (34-104) U/L Troponin I High Sens (0-14) pg/ml Total Protein (6.0-8.3) gm/dl Albumin (3.4-5.0) gm/dl Globulin (2.5-4.0) gm/dl Albumin/Globulin Ratio (0.9-2) Lipase (11-82) U/L Procalcitonin (0-0.5) ng/ml Stl C. cayetanensis PCR (NotDetected) Stool Rotavirus A PCR (NotDetected) Stl Adenov F 40/41 PCR (NotDetected) Stool Astrovirus (PCR) (NotDetected) Stool Campylobacter PCR (NotDetected) Stl C. diff Tox B Gene (Neg) Stool Cryptosporidium PCR (NotDetected) Stl E.coli Shiga Tox PCR (NotDetected) Stl Enterotoxigenic E PCR (NotDetected) Stool EPEC (PCR) (NotDetected) Stool EAEC (PCR) (NotDetected) Stl E. histolytica PCR (NotDetected) Stool Giardia Lamblia PCR (NotDetected) Stool Salmonella PCR (NotDetected) Stool Sapovirus (PCR) (NotDetected) Stl P. shigelloides PCR (NotDetected) Stl Shigella/EIEC PCR (NotDetected) St Y.enterocolitica PCR (NotDetected) Stool Vibrio (PCR) (NotDetected) Stl Vibrio cholerae PCR (NotDetected) Stl Norovirus GI/GII PCR (NotDetected) Blood Type Antibody Screen 01/15/24 01/15/24 01/15/24 Range/Units 06:36 06:31 05:33 WBC 12.29 H (4.8-10.8) K/ul RBC 5.09 (4.20-5.40) M/uL Hgb 15.8 (12.0-16.0) g/dl Hct 45.4 (37.0-47.0) % MCV 89.2 (80.0-100.0) fL MCH 31.0 (25.0-34.0) pg MCHC 34.8 (32.0-36.0) g/dL RDW Std Deviation 41.5 (36.4-46.3) fL RDW Coeff of Sarah 12.7 (11.5-14.5) % Plt Count 202 (130-400) K/uL MPV 11.8 (9.4-12.4) fL Immature Gran % (Auto) 0.4 % Neut % (Auto) 91.0 % Lymph % (Auto) 4.1 % Leslie % (Auto) 4.1 % Eos % (Auto) 0.1 % Baso % (Auto) 0.3 % Neut # (Auto) 11.18 H (1.40-6.50) K/uL Lymph # (Auto) 0.50 L (1.20-3.40) K/uL Leslie # (Auto) 0.51 (0.11-0.59) K/uL Eos # (Auto) 0.01 (0.00-0.50) K/uL Baso # (Auto) 0.04 (0.00-0.20) K/uL Immature Gran # (Auto) 0.05 (0.01-0.20) K/uL APTT (21-31) Seconds PTT Ratio VBG pH 7.27 L (7.36-7.41) VBG pCO2 (38-50) mmHg VBG pO2 mmHg VBG HCO3 mmol/L VBG O2 Saturation % VBG Base Excess mEq/L Sodium 142 (136-145) mmol/L Potassium 2.7 L D (3.5-5.1) mmol/L Chloride 106 (98-107) mmol/L Carbon Dioxide 24 (21-32) mmol/L Anion Gap 12 H (3-11) BUN 23 (6-23) mg/dl Creatinine 2.10 H D (0.6-1.2) mg/dl Est Cr Clr Drug Dosing 15.4 ml/min Est GFR ( Amer) 25.0 ml/min Est GFR (Non-Af Amer) 21.5 ml/min BUN/Creatinine Ratio 11.0 (10-20) Glucose 361 H* (70-99(Fasting)) mg/dl POC Glucose 327 H* 441 H* (70-99) mg/dl Estimat Average Glucose mg/dl Hemoglobin A1c (4.5-5.6) % Lactate 5.4 H* (0.4-2.0) mmol/L Calcium 9.0 (8.6-10.3) mg/dl Phosphorus (2.5-4.9) mg/dl Magnesium (1.7-2.4) mg/dl Total Bilirubin (0.2-1.0) mg/dl AST (13-39) U/L ALT (7-52) U/L Alkaline Phosphatase (34-104) U/L Troponin I High Sens 20.0 H D (0-14) pg/ml Total Protein (6.0-8.3) gm/dl Albumin (3.4-5.0) gm/dl Globulin (2.5-4.0) gm/dl Albumin/Globulin Ratio (0.9-2) Lipase (11-82) U/L Procalcitonin (0-0.5) ng/ml Stl C. cayetanensis PCR (NotDetected) Stool Rotavirus A PCR (NotDetected) Stl Adenov F 40/41 PCR (NotDetected) Stool Astrovirus (PCR) (NotDetected) Stool Campylobacter PCR (NotDetected) Stl C. diff Tox B Gene (Neg) Stool Cryptosporidium PCR (NotDetected) Stl E.coli Shiga Tox PCR (NotDetected) Stl Enterotoxigenic E PCR (NotDetected) Stool EPEC (PCR) (NotDetected) Stool EAEC (PCR) (NotDetected) Stl E. histolytica PCR (NotDetected) Stool Giardia Lamblia PCR (NotDetected) Stool Salmonella PCR (NotDetected) Stool Sapovirus (PCR) (NotDetected) Stl P. shigelloides PCR (NotDetected) Stl Shigella/EIEC PCR (NotDetected) St Y.enterocolitica PCR (NotDetected) Stool Vibrio (PCR) (NotDetected) Stl Vibrio cholerae PCR (NotDetected) Stl Norovirus GI/GII PCR (NotDetected) Blood Type Antibody Screen 01/15/24 01/15/24 01/15/24 Range/Units 04:47 03:37 03:33 WBC (4.8-10.8) K/ul RBC (4.20-5.40) M/uL Hgb (12.0-16.0) g/dl Hct (37.0-47.0) % MCV (80.0-100.0) fL MCH (25.0-34.0) pg MCHC (32.0-36.0) g/dL RDW Std Deviation (36.4-46.3) fL RDW Coeff of Sarah (11.5-14.5) % Plt Count (130-400) K/uL MPV (9.4-12.4) fL Immature Gran % (Auto) % Neut % (Auto) % Lymph % (Auto) % Leslie % (Auto) % Eos % (Auto) % Baso % (Auto) % Neut # (Auto) (1.40-6.50) K/uL Lymph # (Auto) (1.20-3.40) K/uL Leslie # (Auto) (0.11-0.59) K/uL Eos # (Auto) (0.00-0.50) K/uL Baso # (Auto) (0.00-0.20) K/uL Immature Gran # (Auto) (0.01-0.20) K/uL APTT (21-31) Seconds PTT Ratio VBG pH (7.36-7.41) VBG pCO2 (38-50) mmHg VBG pO2 mmHg VBG HCO3 mmol/L VBG O2 Saturation % VBG Base Excess mEq/L Sodium (136-145) mmol/L Potassium (3.5-5.1) mmol/L Chloride (98-107) mmol/L Carbon Dioxide (21-32) mmol/L Anion Gap (3-11) BUN (6-23) mg/dl Creatinine (0.6-1.2) mg/dl Est Cr Clr Drug Dosing ml/min Est GFR ( Amer) ml/min Est GFR (Non-Af Amer) ml/min BUN/Creatinine Ratio (10-20) Glucose 619 H* (70-99(Fasting)) mg/dl POC Glucose 420 H* 556 H* (70-99) mg/dl Estimat Average Glucose mg/dl Hemoglobin A1c (4.5-5.6) % Lactate (0.4-2.0) mmol/L Calcium (8.6-10.3) mg/dl Phosphorus (2.5-4.9) mg/dl Magnesium (1.7-2.4) mg/dl Total Bilirubin (0.2-1.0) mg/dl AST (13-39) U/L ALT (7-52) U/L Alkaline Phosphatase (34-104) U/L Troponin I High Sens Cancelled (0-14) pg/ml Total Protein (6.0-8.3) gm/dl Albumin (3.4-5.0) gm/dl Globulin (2.5-4.0) gm/dl Albumin/Globulin Ratio (0.9-2) Lipase (11-82) U/L Procalcitonin (0-0.5) ng/ml Stl C. cayetanensis PCR (NotDetected) Stool Rotavirus A PCR (NotDetected) Stl Adenov F 40/41 PCR (NotDetected) Stool Astrovirus (PCR) (NotDetected) Stool Campylobacter PCR (NotDetected) Stl C. diff Tox B Gene (Neg) Stool Cryptosporidium PCR (NotDetected) Stl E.coli Shiga Tox PCR (NotDetected) Stl Enterotoxigenic E PCR (NotDetected) Stool EPEC (PCR) (NotDetected) Stool EAEC (PCR) (NotDetected) Stl E. histolytica PCR (NotDetected) Stool Giardia Lamblia PCR (NotDetected) Stool Salmonella PCR (NotDetected) Stool Sapovirus (PCR) (NotDetected) Stl P. shigelloides PCR (NotDetected) Stl Shigella/EIEC PCR (NotDetected) St Y.enterocolitica PCR (NotDetected) Stool Vibrio (PCR) (NotDetected) Stl Vibrio cholerae PCR (NotDetected) Stl Norovirus GI/GII PCR (NotDetected) Blood Type Antibody Screen 01/15/24 01/15/24 01/15/24 Range/Units 02:32 02:31 01:50 WBC (4.8-10.8) K/ul RBC (4.20-5.40) M/uL Hgb 16.0 (12.0-16.0) g/dl Hct 47.6 H (37.0-47.0) % MCV (80.0-100.0) fL MCH (25.0-34.0) pg MCHC (32.0-36.0) g/dL RDW Std Deviation (36.4-46.3) fL RDW Coeff of Sarah (11.5-14.5) % Plt Count (130-400) K/uL MPV (9.4-12.4) fL Immature Gran % (Auto) % Neut % (Auto) % Lymph % (Auto) % Leslie % (Auto) % Eos % (Auto) % Baso % (Auto) % Neut # (Auto) (1.40-6.50) K/uL Lymph # (Auto) (1.20-3.40) K/uL Leslie # (Auto) (0.11-0.59) K/uL Eos # (Auto) (0.00-0.50) K/uL Baso # (Auto) (0.00-0.20) K/uL Immature Gran # (Auto) (0.01-0.20) K/uL APTT 26 (21-31) Seconds PTT Ratio 1.0 VBG pH 7.17 L (7.36-7.41) VBG pCO2 54 H (38-50) mmHg VBG pO2 26 mmHg VBG HCO3 20 mmol/L VBG O2 Saturation < 60.0 % VBG Base Excess -9.2 mEq/L Sodium 135 L (136-145) mmol/L Potassium 3.4 L (3.5-5.1) mmol/L Chloride 101 (98-107) mmol/L Carbon Dioxide 20 L (21-32) mmol/L Anion Gap 14 H (3-11) BUN 21 (6-23) mg/dl Creatinine 1.71 H (0.6-1.2) mg/dl Est Cr Clr Drug Dosing 19.0 ml/min Est GFR ( Amer) 32.0 ml/min Est GFR (Non-Af Amer) 27.6 ml/min BUN/Creatinine Ratio 12.3 (10-20) Glucose 719 H* (70-99(Fasting)) mg/dl POC Glucose (70-99) mg/dl Estimat Average Glucose mg/dl Hemoglobin A1c (4.5-5.6) % Lactate (0.4-2.0) mmol/L Calcium 9.2 (8.6-10.3) mg/dl Phosphorus (2.5-4.9) mg/dl Magnesium (1.7-2.4) mg/dl Total Bilirubin (0.2-1.0) mg/dl AST (13-39) U/L ALT (7-52) U/L Alkaline Phosphatase (34-104) U/L Troponin I High Sens Cancelled (0-14) pg/ml Total Protein (6.0-8.3) gm/dl Albumin (3.4-5.0) gm/dl Globulin (2.5-4.0) gm/dl Albumin/Globulin Ratio (0.9-2) Lipase (11-82) U/L Procalcitonin (0-0.5) ng/ml Stl C. cayetanensis PCR (NotDetected) Stool Rotavirus A PCR (NotDetected) Stl Adenov F 40/41 PCR (NotDetected) Stool Astrovirus (PCR) (NotDetected) Stool Campylobacter PCR (NotDetected) Stl C. diff Tox B Gene (Neg) Stool Cryptosporidium PCR (NotDetected) Stl E.coli Shiga Tox PCR (NotDetected) Stl Enterotoxigenic E PCR (NotDetected) Stool EPEC (PCR) (NotDetected) Stool EAEC (PCR) (NotDetected) Stl E. histolytica PCR (NotDetected) Stool Giardia Lamblia PCR (NotDetected) Stool Salmonella PCR (NotDetected) Stool Sapovirus (PCR) (NotDetected) Stl P. shigelloides PCR (NotDetected) Stl Shigella/EIEC PCR (NotDetected) St Y.enterocolitica PCR (NotDetected) Stool Vibrio (PCR) (NotDetected) Stl Vibrio cholerae PCR (NotDetected) Stl Norovirus GI/GII PCR (NotDetected) Blood Type B Positive Antibody Screen NEGATIVE 01/15/24 01/15/24 01/14/24 Range/Units 01:07 00:40 22:32 WBC 20.53 H (4.8-10.8) K/ul RBC 4.79 (4.20-5.40) M/uL Hgb 14.2 (12.0-16.0) g/dl Hct 44.3 (37.0-47.0) % MCV 92.5 (80.0-100.0) fL MCH 29.6 (25.0-34.0) pg MCHC 32.1 (32.0-36.0) g/dL RDW Std Deviation 43.4 (36.4-46.3) fL RDW Coeff of Sarah 12.9 (11.5-14.5) % Plt Count 239 (130-400) K/uL MPV 12.2 (9.4-12.4) fL Immature Gran % (Auto) 0.7 % Neut % (Auto) 83.6 % Lymph % (Auto) 10.6 % Leslie % (Auto) 2.7 % Eos % (Auto) 1.8 % Baso % (Auto) 0.6 % Neut # (Auto) 17.19 H (1.40-6.50) K/uL Lymph # (Auto) 2.17 (1.20-3.40) K/uL Leslie # (Auto) 0.55 (0.11-0.59) K/uL Eos # (Auto) 0.36 (0.00-0.50) K/uL Baso # (Auto) 0.12 (0.00-0.20) K/uL Immature Gran # (Auto) 0.14 (0.01-0.20) K/uL APTT (21-31) Seconds PTT Ratio VBG pH 7.13 L (7.36-7.41) VBG pCO2 60 H (38-50) mmHg VBG pO2 36 mmHg VBG HCO3 20 mmol/L VBG O2 Saturation < 60.0 % VBG Base Excess -9.8 mEq/L Sodium 133 L (136-145) mmol/L Potassium 4.1 (3.5-5.1) mmol/L Chloride 99 (98-107) mmol/L Carbon Dioxide 22 (21-32) mmol/L Anion Gap 12 H (3-11) BUN 20 (6-23) mg/dl Creatinine 1.67 H (0.6-1.2) mg/dl Est Cr Clr Drug Dosing 19.5 ml/min Est GFR ( Amer) 32.9 ml/min Est GFR (Non-Af Amer) 28.4 ml/min BUN/Creatinine Ratio 12.0 (10-20) Glucose 826 H* (70-99(Fasting)) mg/dl POC Glucose > 600 H* (70-99) mg/dl Estimat Average Glucose 364 mg/dl Hemoglobin A1c 14.3 H (4.5-5.6) % Lactate (0.4-2.0) mmol/L Calcium 9.4 (8.6-10.3) mg/dl Phosphorus 5.1 H (2.5-4.9) mg/dl Magnesium 1.8 (1.7-2.4) mg/dl Total Bilirubin 1.5 H (0.2-1.0) mg/dl AST 46 H (13-39) U/L ALT 30 (7-52) U/L Alkaline Phosphatase 124 H (34-104) U/L Troponin I High Sens 14.5 H (0-14) pg/ml Total Protein 6.4 (6.0-8.3) gm/dl Albumin 3.8 (3.4-5.0) gm/dl Globulin 2.6 (2.5-4.0) gm/dl Albumin/Globulin Ratio 1.5 (0.9-2) Lipase 79 (11-82) U/L Procalcitonin 0.12 (0-0.5) ng/ml Stl C. cayetanensis PCR Not Detected (NotDetected) Stool Rotavirus A PCR Not Detected (NotDetected) Stl Adenov F 40/41 PCR Not Detected (NotDetected) Stool Astrovirus (PCR) Not Detected (NotDetected) Stool Campylobacter PCR Not Detected (NotDetected) Stl C. diff Tox B Gene Negative Cdiff Gene (Neg) Stool Cryptosporidium PCR Not Detected (NotDetected) Stl E.coli Shiga Tox PCR Not Detected (NotDetected) Stl Enterotoxigenic E PCR Not Detected (NotDetected) Stool EPEC (PCR) Not Detected (NotDetected) Stool EAEC (PCR) Not Detected (NotDetected) Stl E. histolytica PCR Not Detected (NotDetected) Stool Giardia Lamblia PCR Not Detected (NotDetected) Stool Salmonella PCR Not Detected (NotDetected) Stool Sapovirus (PCR) Not Detected (NotDetected) Stl P. shigelloides PCR Not Detected (NotDetected) Stl Shigella/EIEC PCR Not Detected (NotDetected) St Y.enterocolitica PCR Not Detected (NotDetected) Stool Vibrio (PCR) Not Detected (NotDetected) Stl Vibrio cholerae PCR Not Detected (NotDetected) Stl Norovirus GI/GII PCR Not Detected (NotDetected) Blood Type Antibody Screen 01/14/24 01/14/24 Range/Units 21:56 21:55 WBC (4.8-10.8) K/ul RBC (4.20-5.40) M/uL Hgb (12.0-16.0) g/dl Hct (37.0-47.0) % MCV (80.0-100.0) fL MCH (25.0-34.0) pg MCHC (32.0-36.0) g/dL RDW Std Deviation (36.4-46.3) fL RDW Coeff of Sarah (11.5-14.5) % Plt Count (130-400) K/uL MPV (9.4-12.4) fL Immature Gran % (Auto) % Neut % (Auto) % Lymph % (Auto) % Leslie % (Auto) % Eos % (Auto) % Baso % (Auto) % Neut # (Auto) (1.40-6.50) K/uL Lymph # (Auto) (1.20-3.40) K/uL Leslie # (Auto) (0.11-0.59) K/uL Eos # (Auto) (0.00-0.50) K/uL Baso # (Auto) (0.00-0.20) K/uL Immature Gran # (Auto) (0.01-0.20) K/uL APTT (21-31) Seconds PTT Ratio VBG pH (7.36-7.41) VBG pCO2 (38-50) mmHg VBG pO2 mmHg VBG HCO3 mmol/L VBG O2 Saturation % VBG Base Excess mEq/L Sodium (136-145) mmol/L Potassium (3.5-5.1) mmol/L Chloride (98-107) mmol/L Carbon Dioxide (21-32) mmol/L Anion Gap (3-11) BUN (6-23) mg/dl Creatinine (0.6-1.2) mg/dl Est Cr Clr Drug Dosing ml/min Est GFR ( Amer) ml/min Est GFR (Non-Af Amer) ml/min BUN/Creatinine Ratio (10-20) Glucose (70-99(Fasting)) mg/dl POC Glucose > 600 H* > 600 H* (70-99) mg/dl Estimat Average Glucose mg/dl Hemoglobin A1c (4.5-5.6) % Lactate (0.4-2.0) mmol/L Calcium (8.6-10.3) mg/dl Phosphorus (2.5-4.9) mg/dl Magnesium (1.7-2.4) mg/dl Total Bilirubin (0.2-1.0) mg/dl AST (13-39) U/L ALT (7-52) U/L Alkaline Phosphatase (34-104) U/L Troponin I High Sens (0-14) pg/ml Total Protein (6.0-8.3) gm/dl Albumin (3.4-5.0) gm/dl Globulin (2.5-4.0) gm/dl Albumin/Globulin Ratio (0.9-2) Lipase (11-82) U/L Procalcitonin (0-0.5) ng/ml Stl C. cayetanensis PCR (NotDetected) Stool Rotavirus A PCR (NotDetected) Stl Adenov F 40/41 PCR (NotDetected) Stool Astrovirus (PCR) (NotDetected) Stool Campylobacter PCR (NotDetected) Stl C. diff Tox B Gene (Neg) Stool Cryptosporidium PCR (NotDetected) Stl E.coli Shiga Tox PCR (NotDetected) Stl Enterotoxigenic E PCR (NotDetected) Stool EPEC (PCR) (NotDetected) Stool EAEC (PCR) (NotDetected) Stl E. histolytica PCR (NotDetected) Stool Giardia Lamblia PCR (NotDetected) Stool Salmonella PCR (NotDetected) Stool Sapovirus (PCR) (NotDetected) Stl P. shigelloides PCR (NotDetected) Stl Shigella/EIEC PCR (NotDetected) St Y.enterocolitica PCR (NotDetected) Stool Vibrio (PCR) (NotDetected) Stl Vibrio cholerae PCR (NotDetected) Stl Norovirus GI/GII PCR (NotDetected) Blood Type Antibody Screen Diagnostic Findings Chest X-Ray 01/15/24 00:19 XR chest 1V portable HISTORY: 83 years-old Female renal failure acute renal failure COMPARISON: 06/12/2018 TECHNIQUE: AP view of the chest FINDINGS: Cardiac silhouette is normal. Atherosclerosis of the aorta. No pneumothorax or pleural effusion. Lungs are clear. Bones appear grossly intact. IMPRESSION: No acute process. ACT 112: Negative or not required by law. The above report was generated using voice recognition software. It may contain grammatical, syntax or spelling errors. Electronically signed by: Tony Snow M.D. 01/15/2024 8:22 AM Abdomen/Pelvis CT 01/15/24 00:29 Exam(s): CT ABDOMEN + PELVIS Without Contrast EXAM: CT Abdomen and Pelvis Without Intravenous Contrast CLINICAL HISTORY: Reason for exam: abd pin, lgib. TECHNIQUE: Axial computed tomography images of the abdomen and pelvis without intravenous contrast. CTDI is 13 mGy and DLP is 651 mGy-cm. Automated exposure control was utilized for the study. A dose lowering technique was utilized adhering to the principles of ALARA. COMPARISON: No relevant prior studies available. FINDINGS: Lung bases: Unremarkable. No mass. No consolidation. Heart: Coronary artery atherosclerosis. Trace pericardial effusion. No cardiomegaly. ABDOMEN: Liver: Unremarkable. Gallbladder and bile ducts: Cholelithiasis, gallbladder distention, and borderline gallbladder wall thickness. No biliary dilatation. Pancreas: Unremarkable. No ductal dilation. Spleen: Chronic granulomatous disease of the spleen. Adrenals: Unremarkable. No mass. Kidneys and ureters: Unremarkable. No obstructing stones. No hydronephrosis. Stomach and bowel: Pancolonic wall thickening and pericolic fat stranding, greatest in the left hemicolon. No bowel obstruction. PELVIS: Appendix: Normal appendix. Bladder: Decompressed urinary bladder, limiting evaluation. No stones. Reproductive: Hysterectomy. ABDOMEN and PELVIS: Intraperitoneal space: Unremarkable. No free air, significant free fluid, or fluid collection. Bones/joints: No acute fracture or dislocation. Right total hip arthroplasty. Soft tissues: Unremarkable. Vasculature: Atherosclerosis. No aortic aneurysm. Lymph nodes: Unremarkable. No enlarged lymph nodes. IMPRESSION: 1. Pancolonic wall thickening and pericolic fat stranding, greatest in the left hemicolon. Appearance is consistent with infectious or inflammatory colitis. 2. Cholelithiasis, gallbladder distention, and borderline gallbladder wall thickness. Correlate clinically for cholecystitis. Electronically signed by: Jean Paris M.D. 01/15/24 02:15 AM
[2024-01-15] MEDS: PIPERACILLIN/TAZOBACTAM 4.5 GM in DEXTROSE 5% MINI-B 100 ML IV SCH (11:39)
[2024-01-15] MEDS: D5NSS + 20MEQ KCL 20 MEQ/1,000 ML BAG IV SCH (12:32)
[2024-01-15 12:47] LABS: Hematocrit (blood only) 45.2 % (37.0-47.0); Hemoglobin 15.4 g/dl (12.0-16.0)
[2024-01-15] MEDS: LOPERAMIDE HCL 2 MG CAP PO PRN (13:51)
--- NOTE | 2024-01-15 13:56 | Hospitalist Progress Note ---
Date of Service January 15, 2024 Assessment & Plan (1) Hyperglycemic crisis in diabetes mellitus: Plan: DKA--POA Metabolic acidosis secondary to above Uncontrolled DM II HbA1c 14.3 Continue IV insulin, IV fluids as per DKA protocol N.p.o. for now Monitor and replete electrolytes as needed Monitor blood glucose levels Appreciate glycemic pharmacist help Acute gastroenteritis Patient presented with bloody diarrhea H/O diverticulosis, internal hemorrhoids --CT ABD:Pancolonic wall thickening and pericolic fat stranding, greatest in the left hemicolon. Appearance is consistent with infectious or inflammatory colitis. Cholelithiasis, gallbladder distention, and borderline gallbladder wall thickness. Correlate clinically for cholecystitis. -- Stool for C. difficile, stool PCR negative -- Monitor volume status Imodium as needed Continue IV Zosyn for now Appreciate GI input Hypertensive urgency Likely situational Continue metoprolol Blood pressure better today Monitor BP Hypokalemia Replete electrolytes as needed Monitor Acute kidney injury Likely prerenal Lisinopril held Continue IV fluids Monitor renal function Avoid nephrotoxic agents as able Creatinine 2.0 CAD S/P stent PVD/CVA Hyperlipidemia Continue statin Hypothyroidism Continue levothyroxine Mood disorder Dementia as per records Currently not on meds Reorient frequently to minimize delirium DVT Px: SCDs Re: Bloody diarrhea CODE STATUS Full code Disposition PT OT prior to discharge Admission and Anticipated Discharge Date Admission Date: January 15, 2024 Subjective Patient is seen and examined at bedside Reports an episode of nausea associated with vomiting this morning Has been having ongoing diarrhea overnight and today Less abdominal pain when compared to yesterday Also reports some mild dizziness Family at bedside Denies any chest pain, dyspnea No other complaints Review of Systems Review of Systems: All systems reviewed & are unremarkable except as noted in Subjective Physical Exam Physical Exam: Physical Exam: Vitals signs as noted above General Appearance: Thin, frail, elderly, no apparent distress Head: normocephalic, Atraumatic Eyes: normal inspection, EOMI Neck: supple, Trachea midline Respiratory/Chest: Normal breath sounds, CTA, No accessory muscle use Cardiovascular: S1, S2, No murmur Abdomen/GI:Soft, LLQ, hypogastric tender, Bowel sounds present Extremities/Musculoskeletal:normal inspection, no edema Neurologic/Psych:AAOX3, grossly no focal neurological deficits Skin: normal color, warm Results & Data Results & Data Vital Signs (Past 12 Hours) Vital Signs Pulse Pulse Resp BP Pulse Ox O2 Del Method 01/15/24 13:07 85 18 121/77 99 Room Air 01/15/24 09:46 89 01/15/24 07:43 87 18 109/90 99 Room Air 01/15/24 06:00 81 22 147/83 H 98 Room Air 01/15/24 05:00 80 20 136/86 98 Room Air 01/15/24 04:00 81 16 151/96 H 98 Room Air 01/15/24 03:29 79 01/15/24 03:00 79 20 144/82 H 98 Room Air 01/15/24 02:00 79 22 150/112 H 97 Room Air Laboratory Results Short CBC 01/14/24 01/15/24 01/15/24 Range/Units 22:32 02:32 06:31 WBC 20.53 H 12.29 H (4.8-10.8) K/ul Hgb 14.2 16.0 15.8 (12.0-16.0) g/dl Hct 44.3 47.6 H 45.4 (37.0-47.0) % Plt Count 239 202 (130-400) K/uL 01/15/24 Range/Units 12:23 WBC (4.8-10.8) K/ul Hgb 15.4 (12.0-16.0) g/dl Hct 45.2 (37.0-47.0) % Plt Count (130-400) K/uL BMP 01/14/24 01/15/24 01/15/24 22:32 01:50 03:37 Sodium 133 L 135 L Potassium 4.1 3.4 L Chloride 99 101 Carbon Dioxide 22 20 L BUN 20 21 Creatinine 1.67 H 1.71 H Glucose 826 H* 719 H* 619 H* Calcium 9.4 9.2 01/15/24 01/15/24 06:31 09:55 Sodium 142 141 Potassium 2.7 L D 3.3 L D Chloride 106 107 Carbon Dioxide 24 23 BUN 23 24 H Creatinine 2.10 H D 2.07 H Glucose 361 H* 294 H Calcium 9.0 9.2 Liver Function 01/14/24 Range/Units 22:32 Total Bilirubin 1.5 H (0.2-1.0) mg/dl AST 46 H (13-39) U/L ALT 30 (7-52) U/L Alkaline Phosphatase 124 H (34-104) U/L Albumin 3.8 (3.4-5.0) gm/dl
--- NOTE | 2024-01-15 14:20 | Pharmacy Report ---
Pharmacy Glycemic Short Note 2 - Date of Service January 15, 2024 - Glycemic Short BSG Results (Last 24 hours): 01/14/24 01/14/24 01/14/24 21:55 21:56 22:32 Glucose 826 H* POC Glucose > 600 H* > 600 H* 01/15/24 01/15/24 01/15/24 01:07 01:50 03:33 Glucose 719 H* POC Glucose > 600 H* 556 H* 01/15/24 01/15/24 01/15/24 03:37 04:47 05:33 Glucose 619 H* POC Glucose 420 H* 441 H* 01/15/24 01/15/24 01/15/24 06:31 06:36 07:34 Glucose 361 H* POC Glucose 327 H* 392 H* 01/15/24 01/15/24 01/15/24 08:31 09:33 09:55 Glucose 294 H POC Glucose 345 H* 291 H 01/15/24 01/15/24 01/15/24 10:38 11:46 12:23 Glucose POC Glucose 250 H 206 H 164 H 01/15/24 13:42 Glucose POC Glucose 134 H OUTPATIENT ANTIDIABETIC REGIMEN: * Trulicity 4.5mg SC QThursday (not taking, problems with product procurement per family) * HbA1c 14.3 (01/14/24) increased from 7.8 (09/10) per hospitalists note ASSESSMENT: * Franca is a 83 YOF admitted with nausea, vomiting, and diarrhea and a history of T2DM admitted with a hyperglycemic crisis. Pharmacy has been consulted for glycemic management while inpatient. * BSG 826 on admission , pH 7.13, AG 12. Patient was started on insulin drip yesterday evening. BSGs trended down into goal range. Originally started on LR w/ 20KCl, switched to D5NSS +20KCl once reached goal range. Discussed with Dr. Ocasio, will continue insulin drip for now. * Potassium critically low this AM, repleted per hospitalist, repeat level improved. * She is receiving Zosyn for suspected acute gastroenteritis and is currently in acute renal failure, no other glycemic stressors noted. PLAN FOR INPATIENT GLYCEMIC CONTROL: * Continue IV insulin infusion * Goal Range 150 - 250 mg/dl
[2024-01-15 14:39] LABS: Calcium 9.1 mg/dl (8.6-10.3)
[2024-01-15 14:40] LABS: BUN Creatinine Ratio 12.2 (10-20); Creatinine Clr Calc Pharmacy 15.2 ml/min; Est GFR (African American) 24.5 ml/min; Est GFR (Non-African American) 21.2 ml/min
[2024-01-15] MEDS: ACETAMINOPHEN 325 MG TAB PO PRN (15:57)
[2024-01-15 18:13] LABS: BUN Creatinine Ratio 12.3 (10-20); Calcium 9.1 mg/dl (8.6-10.3); Creatinine Clr Calc Pharmacy 15.3 ml/min; Est GFR (African American) 24.8 ml/min; Est GFR (Non-African American) 21.4 ml/min; Potassium 4.4 mmol/L (3.5-5.1)
--- NOTE | 2024-01-15 21:16 | Electrocardiogram Report ---
Test Reason : Blood Pressure : / mmHG Vent. Rate : 077 BPM Atrial Rate : 077 BPM P-R Int : 168 ms QRS Dur : 090 ms QT Int : 470 ms P-R-T Axes : 046 -13 045 degrees QTc Int : 531 ms Poor data quality, interpretation may be adversely affected Normal sinus rhythm Inferior infarct (cited on or before 13-JUN-2018) Prolonged QT Abnormal ECG When compared with ECG of 14-JUN-2018 08:19, QT has lengthened Confirmed by Mauri Porras ([id number]) on 01/15/2024 9:16:14 PM Referred By: REFERRED SELF Confirmed By:Mauri Porras
[2024-01-16 00:41] LABS: BUN Creatinine Ratio 13.1 (10-20); Creatinine Clr Calc Pharmacy 15.2 ml/min; Est GFR (African American) 24.5 ml/min; Est GFR (Non-African American) 21.2 ml/min
[2024-01-16 04:53] LABS: Base Excess VBG -6.1 mEq/L; HCO3 VBG 19 mmol/L; Oxygen Saturation VBG 91.6 %; PCO2 VBG 35 mmHg (38-50); PO2 VBG 56 mmHg; pH VBG 7.34 (7.36-7.41)
[2024-01-16 05:00] LABS: Hematocrit (blood only) 38.9 % (37.0-47.0); Hemoglobin 13.2 g/dl (12.0-16.0); Mean Corpuscular Hemoglobin 30.1 pg (25.0-34.0); Mean Corpuscular Hgb Conc 33.9 g/dL (32.0-36.0); Mean Corpuscular Volume 88.8 fL (80.0-100.0); Platelet Count 144 K/uL (130-400); RDW Coefficient of Variation 13.2 % (11.5-14.5); RDW Standard Deviation 43.3 fL (36.4-46.3); Red Blood Count 4.38 M/uL (4.20-5.40); White Blood Count 13.59 K/ul (4.8-10.8)
[2024-01-16 05:19] LABS: Basophils # (auto) 0.04 K/uL (0.00-0.20); Basophils % (auto) 0.3 %; Echinocytes 1+; Eosinophils # (auto) 0.01 K/uL (0.00-0.50); Eosinophils % (auto) 0.1 %; Immature Granulocytes # (auto) 0.05 K/uL (0.01-0.20); Immature Granulocytes % (auto) 0.4 %; Lymphocytes # (auto) 1.45 K/uL (1.20-3.40); Lymphocytes % (auto) 10.7 %; Monocytes # (auto) 0.89 K/uL (0.11-0.59); Monocytes % (auto) 6.5 %; Neutrophils # (auto) 11.15 K/uL (1.40-6.50)
[2024-01-16 05:36] LABS: Albumin Globulin Ratio 1.6 (0.9-2); Albumin Level 3.1 gm/dl (3.4-5.0); BUN Creatinine Ratio 13.7 (10-20); Bilirubin,Total 1.1 mg/dl (0.2-1.0); Calcium 8.5 mg/dl (8.6-10.3); Creatinine Clr Calc Pharmacy 15.8 ml/min; Est GFR (African American) 25.8 ml/min; Est GFR (Non-African American) 22.3 ml/min; Magnesium 1.5 mg/dl (1.7-2.4); Total Protein 5.1 gm/dl (6.0-8.3)
[2024-01-16] MEDS: D5W AND NSS 1,000 ML IV SCH (06:05)
[2024-01-16] MEDS: DC IV INSULIN INFUSION 1 EA DEVI ONE (10:07)
[2024-01-16] MEDS: LACTATED RINGER'S 1,000 ML IV SCH (10:09)
[2024-01-16] MEDS: MAGNESIUM SULFATE / D5W 1 GM/100 ML BAG IV SCH (10:09)
[2024-01-16] MEDS: LANTUS PER UNIT CHARGE SQ ONE ×3 (10:54→21:23)
--- NOTE | 2024-01-16 11:03 | Ultrasound Report ---
RENAL ULTRASOUND HISTORY: Acute kidney injury [place] COMPARISON: CT 01/15/2024 FINDINGS: Right kidney: 9.2 x 5.0 x 4.4 cm. No hydronephrosis. Cortical thinning with increased parenchymal ech ogenicity. No solid renal mass lesions. Left kidney: 8.5 x 3.8 x 4.7 cm. No hydronephrosis. Mild cortical thinning with increased parenchymal echogenicity. Bladder: Not diagnostically visualized secondary to obscuring bowel gas. Distended gallbladder with cholelithiasis. Common bile duct measures 3 mm. IMPRESSION: 1. No renal calculi or hydronephrosis identified. 2. Distended gallbladder with cholelithiasis. Correlate clinically to exclude acute cholecystitis. 3. Mild increased echogenicity of the kidneys may represent chronic medical renal disease. ACT 112: Negative or not required by law. Electronically signed by: oTny Snow M.D. 01/16/2024 11:02 AM
--- NOTE | 2024-01-16 11:35 | Surgery Consultation ---
Date of Consultation January 16, 2024 Assessment & Plan (1) Nausea and vomiting: Her CT and US images and results were personally viewed and interpreted by myself She has what appears to be a pancolitis and has tenderness throughout her entire abdomen Unlikely she has acute cholecystitis, but will order a HIDA scan to rule this out Further treatment plan pending her HIDA results (2) Chronic diarrhea: (3) DKA (diabetic ketoacidosis): (4) Cholelithiasis: History of Present Illness Reason for Consultation: Cholelithiasis Attending Physician: Jose Ocasio MD History of Present Illness This is an 83 yo female who was admitted yesterday with generalized abdominal pain, worse in the lower abdomen since Tuesday. She states she has had N/V at home but none since admitted. She denies any acholic stools, jaundice, tea- colored urine. No aggravating or relieving factors of the pain. Previous abdominal surgeries include a hysterectomy. Denies fevers or chills. Allergies Allergy/AdvReac Type Severity Reaction Status Date / Time latex Allergy Severe SKIN TEARS Verified 01/14/24 23:22 codeine AdvReac Mild UPSET Verified 01/14/24 23:22 STOMACH propoxyphene AdvReac Mild UPSET Verified 01/14/24 23:22 STOMACH Home Medications Medication Instructions Recorded Confirmed Type atorvastatin 40 mg tablet 40 mg PO QAM 06/12/18 01/14/24 History levothyroxine 50 mcg tablet 50 mcg PO QAM 06/12/18 01/14/24 History lisinopril 40 mg tablet 40 mg PO QAM 06/12/18 01/14/24 History nitroglycerin 0.4 mg sublingual 0.4 mg sublingual DIRECTED 06/12/18 01/14/24 History tablet dulaglutide 4.5 mg/0.5 mL 4.5 mg subcut WK 01/14/24 01/14/24 History subcutaneous pen injector (Trulicity) metoprolol succinate 50 mg 50 mg PO QAM 01/14/24 01/14/24 History tablet,extended release 24 hr Patient History Medical History Hx of myocardial infarction 2013 -followed by card cath Nausea and vomiting after administration of anesthetic agent Surgical History Hx of colonoscopy Hx of cardiac catheterization 2014- 2 stents- follows with [facility] cardio, yearly visits Family History Father Diabetes Social History Smoking Status: Former smoker Second Hand Exposure: No; Do You Dip or Chew Tobacco: No; Tobacco Cessation Education Requested by Patient: No Hx Alcohol Use: No Hx Substance Use: No Preferred Language: Dutch Communication Ability: Effective Tongue And Quarter Stitcher Required: No Beliefs That Will Affect Care: None Current Living Situation: Alone Current Living Situation Comment: 2 story home, master bedroom on second floor. Other Information That Helps Us Care for You: No Feels Safe at Home: Yes Safety Concerns: Feels Safe At This Time Assistive Devices: None Review of Systems Constitutional: no fever and no chills Eyes: no blind spots and no corrective lenses Ear, Nose, Mouth, Throat: no ear pain and no hearing loss Respiratory: no cough and no dyspnea Cardiovascular: no chest pain and no dyspnea on exertion Gastrointestinal: + abdominal pain, + nausea, + vomiting a nd + diarrhea/loose stools; no constipation Genitourinary: no dysuria and no nocturia Musculoskeletal: no back pain and no neck pain Integumentary: no acne, no sores and no erythema Neurologic: no headache(s) and no confusion Psychiatric: no behavioral changes and no depression Hematologic / Lymphatic: no easy bleeding and no easy bruising Physical Exam Constitutional: WD/WN, vitals as above Eyes: PERRL, conjunctivae normal, anicteric sclerae ENMT: external ear and nose normal, oropharynx normal Neck: trachea midline, no thyromegaly Respiratory: normal respiratory effort, lungs clear to auscultation Cardiovascular: RRR, no murmur, no edema Gastrointestinal (Abdomen): Inspection/Auscultation: abdomen normal to inspection; abdomen not distended Percussion/Palpation: + abdomen tender (generalized, worse in bilateral lower quadrants) and abdomen soft; no guarding and no hernia Musculoskeletal: no cyanosis or clubbing, extremities motor strength 5/5 Skin: no rashes, warm and dry Neurologic: PERRL, EOMI, accommodation nl, no face palsy, no dysarthria Psychiatric: A+Ox3, euthymic affect Results & Data Vital Signs (Past 12 Hours) Vital Signs Temp Pulse Pulse Resp BP Pulse Ox O2 Del Method 01/16/24 09:45 82 01/16/24 07:41 36.8 C 83 18 165/81 H 99 Room Air 01/16/24 02:20 37.5 C 85 16 119/77 99 Room Air PG Care Time/CCT Total # of Minutes Spent Total Time Spent with Patient: Total time spent is greater than 50% in coordination of care (as documented) at patient's floor/unit and/or counseling patient: Coding Level of Care Code 21017 INT INP/OBS CARE 3/75MIN Diagnoses Nausea and vomiting R11.2 Chronic diarrhea K52.9 DKA (diabetic ketoacidosis) E11.10 Cholelithiasis K80.20
[2024-01-16] MEDS: FAMOTIDINE 20MG IV PUSH 20 MG/5 ML SYR IV SCH (12:41)
[2024-01-16] MEDS: FAMOTIDINE 10 MG in SYRINGE 1.5 ML IV SCH (13:10)
[2024-01-16] MEDS: FAMOTIDINE IV SCH (14:12)
--- NOTE | 2024-01-16 14:40 | Pharmacy Report ---
Pharmacy Glycemic Short Note 2 - Date of Service January 16, 2024 - Glycemic Short BSG Results (Last 24 hours): 01/15/24 01/15/24 01/15/24 14:10 14:38 15:34 Glucose 169 H POC Glucose 142 H 143 H 01/15/24 01/15/24 01/15/24 16:30 17:30 17:36 Glucose 151 H POC Glucose 133 H 125 H 01/15/24 01/15/24 01/15/24 18:30 19:34 20:32 Glucose POC Glucose 121 H 146 H 134 H 01/15/24 01/15/24 01/15/24 21:35 22:50 23:31 Glucose 155 H POC Glucose 126 H 144 H 01/16/24 01/16/24 01/16/24 01:30 04:44 05:28 Glucose 198 H POC Glucose 173 H 177 H 01/16/24 10:24 Glucose POC Glucose 232 H OUTPATIENT ANTIDIABETIC REGIMEN: * Trulicity 4.5mg SC QThursday (not taking, problems with product procurement per family) * HbA1c 14.3 (01/14/24) increased from 7.8 (09/10) per hospitalists note ASSESSMENT: 01/15 * Franca received approximately 100 units of insulin yesterday from the insulin drip * Discussed patient with hospitalist, labs improved, BSGs within goal range, insulin drip running at less than 2 units/hr. Ok to transition to SQ insulin. * Lantus administered at 1054, overlapped with drip for ~3 hours and then discontinued drip. * Novolog started at a weight based stress of 2 with dinner. Per RN, family concerned that BSGs are too low, will increase goal range to 140-180mg/dL to prevent hypoglycemia. Will also add loose overnight checks for closer control. * Additional Lantus up to a weight based stress of 3 ordered at bedtime if BSGs remain elevated. 01/14 * Franca is a 83 YOF admitted with nausea, vomiting, and diarrhea and a history of T2DM admitted with a hyperglycemic crisis. Pharmacy has been consulted for glycemic management while inpatient. * BSG 826 on admission , pH 7.13, AG 12. Patient was started on insulin drip yesterday evening. BSGs trended down into goal range. Originally started on LR w/ 20KCl, switched to D5NSS +20KCl once reached goal range. Discussed with Dr. Ocasio, will continue insulin drip for now. * Potassium critically low this AM, repleted per hospitalist, repeat level improved. * She is receiving Zosyn for suspected acute gastroenteritis and is currently in acute renal failure, no other glycemic stressors noted. PLAN FOR INPATIENT GLYCEMIC CONTROL: * Continue to hold outpatient diabetes medications. * Basal insulin * Lantus 15 units SQ x1, discontinued insulin drip * Lantus 0-15 units SQ HS x1 based on BSG (see eMAR for additional details) * Bolus insulin * NovoLog per scale @0000, 0400 * Goal Range: Low 140 mg/dL - High 180 mg/dL * Correction Factor: 50 mg/dL/unit * Bolus insulin * NovoLog per scale ACHS or Q6hrs while NPO * Goal Range: Low 140 mg/dL - High 180 mg/dL * Correction Factor: 35 mg/dL/unit * Nutritional / Prandial insulin per carb ratio of 1 unit per 10 grams CHO consumed
[2024-01-16 15:41] LABS: BUN Creatinine Ratio 15.8 (10-20); Calcium 7.9 mg/dl (8.6-10.3); Creatinine Clr Calc Pharmacy 21.1 ml/min; Est GFR (African American) 33.4 ml/min; Est GFR (Non-African American) 28.8 ml/min; Potassium 4.4 mmol/L (3.5-5.1)
--- NOTE | 2024-01-16 17:10 | Hospitalist Progress Note ---
Date of Service January 16, 2024 Assessment & Plan (1) Hyperglycemic crisis in diabetes mellitus: Plan: DKA--POA Metabolic acidosis secondary to above Uncontrolled DM II HbA1c 14.3 DKA protocol IV insulin transition to SQ Insulin Monitor and replete electrolytes as needed Monitor blood glucose levels Appreciate glycemic pharmacist help Anion gap closed Clear liquid diet for now Acute gastroenteritis Patient presented with bloody diarrhea H/O diverticulosis, internal hemorrhoids --CT ABD:Pancolonic wall thickening and pericolic fat stranding, greatest in the left hemicolon. Appearance is consistent with infectious or inflammatory colitis. Cholelithiasis, gallbladder distention, and borderline gallbladder wall thickness. Correlate clinically for cholecystitis. -- Stool for C. difficile, stool PCR negative -- Monitor volume status Imodium as needed Continue IV Zosyn for now Appreciate GI, surgery input HIDA scan to rule out acute cholecystitis Added Pepcid Hypertensive urgency Likely situational Continue metoprolol Monitor BP Hypokalemia Replete electrolytes as needed Monitor Acute kidney injury Likely prerenal --Renal USD:No renal calculi or hydronephrosis identified. Mild increased echogenicity of the kidneys may represent chronic medical renal disease. Lisinopril held Continue IV fluids Monitor renal function Avoid nephrotoxic agents as able Creatinine 1.6 today CAD S/P stent PVD/CVA Hyperlipidemia Continue statin Hypothyroidism Continue levothyroxine Mood disorder Dementia as per records Currently not on meds Reorient frequently to minimize delirium DVT Px: SCDs Re: Bloody diarrhea CODE STATUS Full code Disposition PT OT prior to discharge Admission and Anticipated Discharge Date Admission Date: January 15, 2024 Subjective Patient is seen and examined at bedside States having persistent abdominal pain Also reports diarrhea No nausea, vomiting today Denies any chest pain, dyspnea Review of Systems Review of Systems: All systems reviewed & are unremarkable except as noted in Subjective Physical Exam Physical Exam: Physical Exam: Vitals signs as noted above General Appearance: Thin, frail, elderly, no apparent distress Head: normocephalic, Atraumatic Eyes: normal inspection, EOMI Neck: supple, Trachea midline Respiratory/Chest: Normal breath sounds, CTA, No accessory muscle use Cardiovascular: S1, S2, No murmur Abdomen/GI:Soft, LLQ, epigastric, hypogastric tender, Bowel sounds present Extremities/Musculoskeletal:normal inspection, no edema Neurologic/Psych:AAOX3, grossly no focal neurological deficits Skin: normal color, warm Results & Data Results & Data Vital Signs (Past 12 Hours) Vital Signs Temp Pulse Pulse Resp BP BP Pulse Ox 01/16/24 16:43 87 01/16/24 16:37 37.5 C 88 18 144/68 H 99 01/16/24 12:35 36.6 C 82 18 149/76 H 99 01/16/24 09:45 82 01/16/24 07:41 36.8 C 83 18 165/81 H 99 O2 Del Method 01/16/24 16:43 01/16/24 16:37 Room Air 01/16/24 12:35 Room Air 01/16/24 09:45 01/16/24 07:41 Room Air Laboratory Results Short CBC 01/16/24 Range/Units 04:46 WBC 13.59 H (4.8-10.8) K/ul Hgb 13.2 (12.0-16.0) g/dl Hct 38.9 (37.0-47.0) % Plt Count 144 (130-400) K/uL BMP 01/15/24 01/15/24 01/16/24 17:30 22:50 04:44 Sodium 140 139 138 Potassium 4.4 5.0 5.0 Chloride 108 H 111 H 112 H Carbon Dioxide 21 18 L 20 L BUN 26 H 28 H 28 H Creatinine 2.11 H 2.13 H 2.04 H Glucose 151 H 155 H 198 H Calcium 9.1 9.0 8.5 L 01/16/24 15:12 Sodium 137 Potassium 4.4 Chloride 110 H Carbon Dioxide 20 L BUN 26 H Creatinine 1.65 H D Glucose 294 H Calcium 7.9 L Liver Function 01/16/24 Range/Units 04:44 Total Bilirubin 1.1 H (0.2-1.0) mg/dl AST 29 (13-39) U/L ALT 24 (7-52) U/L Alkaline Phosphatase 68 (34-104) U/L Albumin 3.1 L (3.4-5.0) gm/dl
[2024-01-16] MEDS: INSULIN ASPART PER UNIT CHARGE SC SCH (18:06)
[2024-01-17] MEDS: INSULIN ASPART PER UNIT CHARGE SC SCH ×2 (00:14→17:57)
[2024-01-17 06:31] LABS: Hematocrit (blood only) 34.1 % (37.0-47.0); Hemoglobin 11.2 g/dl (12.0-16.0); Mean Corpuscular Hemoglobin 29.6 pg (25.0-34.0); Mean Corpuscular Hgb Conc 32.8 g/dL (32.0-36.0); Mean Corpuscular Volume 90.2 fL (80.0-100.0); Mean Platelet Volume 11.7 fL (9.4-12.4); Platelet Count 159 K/uL (130-400); RDW Coefficient of Variation 13.2 % (11.5-14.5); RDW Standard Deviation 43.7 fL (36.4-46.3); Red Blood Count 3.78 M/uL (4.20-5.40); White Blood Count 9.38 K/ul (4.8-10.8)
[2024-01-17 06:56] LABS: Albumin Level 2.8 gm/dl (3.4-5.0); BUN Creatinine Ratio 14.3 (10-20); Bilirubin Direct 0.2 mg/dl (0-0.2); Bilirubin,Total 0.9 mg/dl (0.2-1.0); Calcium 7.8 mg/dl (8.6-10.3); Creatinine Clr Calc Pharmacy 25.7 ml/min; Est GFR (African American) 38.4 ml/min; Est GFR (Non-African American) 33.1 ml/min; Magnesium 1.7 mg/dl (1.7-2.4); Potassium 4.2 mmol/L (3.5-5.1); Total Protein 4.8 gm/dl (6.0-8.3)
--- NOTE | 2024-01-17 09:27 | Surgery Progress Note ---
Date of Service January 17, 2024 Assessment & Plan (1) Cholelithiasis: Plan: No n/v +bm + flatus intermittent epigastric discomfort WBC wnl , LFT wnl keep npo , HIDA scan ordered will await the results VSS Admission and Anticipated Discharge Date Admission Date: January 15, 2024 Supervising Physician Co-Signing Physician Notes I personally saw and evaluated the patient with Irvin BYRNES and agree with the assessment and plan. 83 yo female with pancolitis, cholelithiasis HIDA scan Await results Subjective No n/v +bm + flatus intermittent epigastric discomfort Review of Systems Constitutional: no fever and no chills Respiratory: no dyspnea Cardiovascular: no chest pain Gastrointestinal: + abdominal pain; no nausea and no vomit ing Physical Exam Constitutional: well developed, cooperative and comfortable; no acute distress Respiratory: normal respiratory effort and able to speak in complete sentences; no respiratory distress Gastrointestinal (Abdomen): Inspection/Auscultation: abdomen not distended Percussion/Palpation: + abdomen tender and abdomen soft; abdomen not firm Results & Data Vital Signs (Past 12 Hours) Vital Signs Temp Pulse Pulse Resp BP Pulse Ox O2 Del Method 01/17/24 08:00 Room Air 01/17/24 07:36 98.2 F 74 20 144/80 H 98 Room Air 01/17/24 07:00 77 01/17/24 02:49 97.9 F 72 18 159/72 H 95 Room Air 01/16/24 23:45 98.2 F 83 18 160/83 H 100 Room Air 01/16/24 21:52 85 Results CBC w Diff Results: RBC 3.78 M/uL (4.20-5.40) L 01/17/24 WBC 9.38 K/ul (4.8-10.8) 01/17/24 Hgb 11.2 g/dl (12.0-16.0) L 01/17/24 Hct 34.1 % (37.0-47.0) L 01/17/24 MCV 90.2 fL (80.0-100.0) 01/17/24 MCH 29.6 pg (25.0-34.0) 01/17/24 MCHC 32.8 g/dL (32.0-36.0) 01/17/24 RDW Standard Deviation 43.7 fL (36.4-46.3) 01/17/24 RDW Coefficient of Variation 13.2 % (11.5-14.5) 01/17/24 Plt Count 159 K/uL (130-400) 01/17/24 MPV 11.7 fL (9.4-12.4) 01/17/24 Neutrophils (%) (Auto) 82.0 % 01/16/24 Lymphocytes (%) (Auto) 10.7 % 01/16/24 Monocytes # (Auto) 0.89 K/uL (0.11-0.59) H 01/16/24 Eosinophils # (Auto) 0.01 K/uL (0.00-0.50) 01/16/24 Immature Granulocyte % (Auto) 0.4 % 01/16/24 Neutrophils # (Auto) 11.15 K/uL (1.40-6.50) H 01/16/24 Lymphocytes # (Auto) 1.45 K/uL (1.20-3.40) 01/16/24 Monocytes # (Auto) 0.89 K/uL (0.11-0.59) H 01/16/24 Eosinophils # (Auto) 0.01 K/uL (0.00-0.50) 01/16/24 Basophils # (Auto) 0.04 K/uL (0.00-0.20) 01/16/24 Immature Granulocyte # (Auto) 0.05 K/uL (0.01-0.20) 4 Echinocytes 1+ 01/16/24 Results CMP Results: Na 140 mmol/L (136-145) 01/17/24 K 4.2 mmol/L (3.5-5.1) 01/17/24 Cl 113 mmol/L (98-107) H 01/17/24 CO2 21 mmol/L (21-32) 01/17/24 Anion Gap 6 (3-11) 01/17/24 BUN 21 mg/dl (6-23) 01/17/24 Creatinine 1.47 mg/dl (0.6-1.2) H 01/17/24 Estimated GFR ( Amer) 38.4 ml/min 01/17/24 Estimated GFR (Non-Af Amer) 33.1 ml/min 01/17/24 BUN/Creatinine Ratio 14.3 (10-20) 01/17/24 Glu 140 mg/dl (70-99(Fasting)) H 01/17/24 Ca 7.8 mg/dl (8.6-10.3) L 01/17/24 Phosphorus Level 5.1 mg/dl (2.5-4.9) H 01/14/24 Total Bilirubin 0.9 mg/dl (0.2-1.0) 01/17/24 Direct Bilirubin 0.2 mg/dl (0-0.2) 01/17/24 AST 17 U/L (13-39) 01/17/24 ALT 17 U/L (7-52) 01/17/24 Alkaline Phosphatase 83 U/L (34-104) 01/17/24 TP 4.8 gm/dl (6.0-8.3) L 01/17/24 Albumin 2.8 gm/dl (3.4-5.0) L 01/17/24 Globulin 2.0 gm/dl (2.5-4.0) L 01/16/24 Albumin/Globulin Ratio 1.6 (0.9-2) 01/16/24 PG Care Time/CCT Total # of Minutes Spent Total Time Spent with Patient: Total time spent is greater than 50% in coordination of care (as documented) at patient's floor/unit and/or counseling patient: Coding Level of Care Code 30279 SUB INP/OBS CARE 07/14MIN Diagnoses Cholelithiasis K80.20
[2024-01-17] MEDS ORDERED: PIPERACILLIN/TAZOBACTAM 4.5 GM in DEXTROSE 5% MINI-B 100 ML IV SCH (12:00)
[2024-01-17] MEDS: PIPERACILLIN/TAZOBACTAM 4.5 GM in DEXTROSE 5% MINI-B 100 ML IV SCH (13:29)
--- NOTE | 2024-01-17 13:36 | Nuclear Medicine Report ---
NM hepatobiliary CLINICAL HISTORY: 83 years-old Female with eval to rule out acute yoselin. Acute right upper quadrant abdominal pain TECHNIQUE: Sequential anterior abdominal images were obtained through 60 minutes following the intra venous administration of 5.0 mCi of technetium-99m Choletec. COMPARISON: CT 01/07/2024 FINDINGS: There is prompt, uniform accumulation of the tracer by the liver. There is normal filling of the int rahepatic ducts, common bile duct and normal excretion of the tracer into the duodenum. The gallblad tarun fills normally. Mild enterogastric reflux. IMPRESSION: Normal hepatobiliary study. No scintigraphic evidence for acute cholecystitis or common bile duct obstruction. ACT 112: Negative or not required by law. The above report was generated using voice recognition software. It may contain grammatical, syntax o r spelling errors. Electronically signed by: Tony Snow M.D. 01/17/2024 1:34 PM
--- NOTE | 2024-01-17 13:59 | Communication Note ---
Date of Service: January 17, 2024 HIDA scan negative for acute cholecystitis. Abdominal pain generalized and more consistent with colitis picture seen on admitting CT scan. We will allow clears, may adv diet as tolerates. If gallstones become more symptomatic in the future she can always see us as an outpatient to discuss. Currently there no indications at this time to undergo surgery this admission and we will allow her time to recover from colitis. We will sign off but feel free to call with questions/concerns.
[2024-01-17] MEDS ORDERED: INSULIN ASPART PER UNIT CHARGE SC SCH (16:00)
--- NOTE | 2024-01-17 16:19 | Hospitalist Progress Note ---
Date of Service January 17, 2024 Assessment & Plan (1) Hyperglycemic crisis in diabetes mellitus: Plan: DKA--POA Metabolic acidosis secondary to above Uncontrolled DM II HbA1c 14.3 Managed with DKA protocol IV insulin transition to SQ Insulin Will monitor electrolytes and blood glucose level Appreciate glycemic pharmacist help Anion gap closed Started with clears and now diet advanced as tolerated Acute gastroenteritis--Likely secondary to infectious/inflammatory colitis Patient presented with bloody diarrhea H/O diverticulosis, internal hemorrhoids CT ABD:Pancolonic wall thickening and pericolic fat stranding, greatest in the left hemicolon. Appearance is consistent with infectious or inflammatory colitis. Cholelithiasis, gallbladder distention, and borderline gallbladder wall thickness. Correlate clinically for cholecystitis. Stool for C. difficile, stool PCR negative Imodium as needed Continue IV Zosyn for now Appreciate GI, surgery input HIDA scan has been negative for any cholecystitis and/or common bile duct dila tation Started with advance diet as tolerated Hypertensive urgency Likely situational Continue metoprolol Monitor BP Hypokalemia Replete electrolytes as needed Monitor Acute kidney injury Likely prerenal --Renal USD:No renal calculi or hydronephrosis identified. Mild increased echogenicity of the kidneys may represent chronic medical renal disease. Lisinopril held Continue IV fluids Monitor renal function Avoid nephrotoxic agents as able Creatinine 1.6 today -Creatinine has been improving and it is 1.47 as of 01/17/2024 CAD S/P stent PVD/CVA Hyperlipidemia Continue statin Hypothyroidism Continue levothyroxine Mood disorder Dementia as per records Currently not on meds Reorient frequently to minimize delirium DVT Px: SCDs Re: Bloody diarrhea CODE STATUS Full code Disposition PT OT prior to discharge Admission and Anticipated Discharge Date Admission Date: January 15, 2024 Subjective 01/17/2024 The patient was seen and examined in medical telemetry unit She has been complaining of abdominal discomfort mostly in the lower lower abdomen without any nausea and or vomiting Denies any chest pain or palpitation No fever, chills or any shortness of breath Review of Systems Review of Systems: All systems reviewed and are unremarkable except as noted below Physical Exam Physical Exam: Lying in bed with minimal distress due to abdominal pain Constitutional: well developed, well nourished and + ill appearing Eyes: PERRL, conjunctivae normal, anicteric sclerae ENMT: external ear and nose normal, oropharynx normal Neck: trachea midline, no thyromegaly Respiratory: no respiratory distress Auscultation: lungs clear to auscultation bilaterally Cardiovascular: Rate/Rhythm: regular rate and regular rhythm; not tachycardic Heart Sounds: normal S1 and normal S2; no murmur Extremities: no edema Gastrointestinal (Abdomen): Inspection/Auscultation: normal bowel sounds; a bdomen not distended Percussion/Palpation: + abdomen tender (Lower quadrants) and abdomen soft Musculoskeletal: No acute arthritis involving any of the joint Neurologic: normal touch/pain/proprioception and moves all extremities; no focal motor deficits Psychiatric: A+Ox3, euthymic affect Lymphatic: no cervical or axillary lymphadenopathy Results & Data Results & Data Vital Signs (Past 12 Hours) Vital Signs Temp Pulse Pulse Resp BP Pulse Ox O2 Del Method 01/17/24 15:18 36.6 C 76 20 165/78 H 99 Room Air 01/17/24 11:15 36.5 C 93 H 16 154/84 H 92 Room Air 01/17/24 08:00 Room Air 01/17/24 07:36 36.8 C 74 20 144/80 H 98 Room Air 01/17/24 07:00 77 Laboratory Results Short CBC 01/17/24 Range/Units 06:09 WBC 9.38 (4.8-10.8) K/ul Hgb 11.2 L (12.0-16.0) g/dl Hct 34.1 L (37.0-47.0) % Plt Count 159 (130-400) K/uL BMP 01/17/24 06:09 Sodium 140 Potassium 4.2 Chloride 113 H Carbon Dioxide 21 BUN 21 Creatinine 1.47 H Glucose 140 H Calcium 7.8 L Liver Function 01/17/24 Range/Units 06:09 Total Bilirubin 0.9 (0.2-1.0) mg/dl Direct Bilirubin 0.2 (0-0.2) mg/dl AST 17 (13-39) U/L ALT 17 (7-52) U/L Alkaline Phosphatase 83 (34-104) U/L Albumin 2.8 L (3.4-5.0) gm/dl Medications Administered Current Inpatient Medications Acetaminophen (Acetaminophen 325 Mg Tab) 650 mg PO QID PRN PRN Reason: pain/fever Stop: 02/14/24 03:10 Last Admin: 01/16/24 05:30 Dose: 650 mg Dextrose (Dextrose 50% 50 Ml Syringe) 25 - 50 ml IV UD PRN; Protocol PRN Reason: Hypoglycemia Protocol Stop: 02/13/24 23:14 Glucagon (Glucagon For Inj 1 Mg Vial) 1 mg IM UD PRN; Protocol PRN Reason: Hypoglycemia Protocol Stop: 02/13/24 23:14 Glucose (Glucose 40% Gel 15 Gm Tube) 15 - 30 gm PO UD PRN; Protocol PRN Reason: Hypoglycemia Protocol Stop: 02/13/24 23:14 Glucose (Glucose 10 Tab/Tube) 4 - 8 tab PO UD PRN; Protocol PRN Reason: Hypoglycemia Protocol Stop: 02/13/24 23:14 Promethazine HCl 6.25 mg/ (Sodium Chloride) 50.25 mls @ 201 mls/hr IV Q6H PRN PRN Reason: Nausea And Vomiting Stop: 02/14/24 03:10 Lactated Ringer's (Lr) 1,000 mls @ 100 mls/hr IV .Q10H [facility] Stop: 02/15/24 08:29 Last Infusion: 01/17/24 13:35 Dose: 100 mls/hr Famotidine 10 mg/ Syringe 2.5 mls @ 1.25 mls/min IV Q24H [facility] Stop: 02/15/24 11:59 Last Admin: 01/17/24 13:37 Dose: 1.25 mls/min Piperacillin Sod/Tazobactam (Sod 4.5 gm/ Dextrose) 100 mls @ 25 mls/hr IV Q8H [facility]; Protocol Stop: 01/27/24 11:59 Last Admin: 01/17/24 13:29 Dose: 25 mls/hr Insulin Aspart (Insulin Aspart Per Unit Charge) 0 units SC ACHS [facility] Stop: 02/16/24 16:29 Insulin Glargine (Lantus Per Unit Charge) 0 units SC HS@2000 ROM; Protocol Stop: 02/16/24 19:59 Levothyroxine Sodium (Levothyroxine Sodium 50 Mcg Tablet) 50 mcg PO DAILYBB [facility] Stop: 02/14/24 06:29 Last Admin: 01/17/24 06:23 Dose: 50 mcg Loperamide HCl (Loperamide Hcl 2 Mg Cap) 2 mg PO UD PRN PRN Reason: Diarrhea Stop: 02/14/24 13:36 Last Admin: 01/15/24 20:48 Dose: 2 mg Metoprolol Succinate (Metoprolol Succ 50mg Ext Rel Tab) [facility] Stop: 02/14/24 08:59 Last Admin: 01/17/24 07:58 Dose: 50 mg Miscellaneous (Carbohydrates For Hypoglycemia ) 15 - 30 gm PO UD PRN PRN Reason: Hypoglycemia Treatment Stop: 02/13/24 23:14 Miscellaneous Information (Pharmacy Glycemic Mgmt Consult) 1 each N/A UD PRN PRN Reason: Consult Stop: 02/13/24 22:18 Oxycodone HCl (Oxycodone Hcl Ir 5 Mg Tab (Immediate Release)) 5 mg PO Q4H PRN PRN Reason: Pain Stop: 01/29/24 03:10
[2024-01-17] MEDS: LANTUS PER UNIT CHARGE SC SCH (21:12)
[2024-01-18 06:08] LABS: Basophils # (auto) 0.04 K/uL (0.00-0.20); Basophils % (auto) 0.5 %; Eosinophils # (auto) 0.36 K/uL (0.00-0.50); Eosinophils % (auto) 4.1 %; Hematocrit (blood only) 30.4 % (37.0-47.0); Hemoglobin 10.3 g/dl (12.0-16.0); Immature Granulocytes # (auto) 0.04 K/uL (0.01-0.20); Immature Granulocytes % (auto) 0.5 %; Lymphocytes # (auto) 1.46 K/uL (1.20-3.40); Lymphocytes % (auto) 16.6 %; Mean Corpuscular Hemoglobin 30.4 pg (25.0-34.0); Mean Corpuscular Hgb Conc 33.9 g/dL (32.0-36.0); Mean Corpuscular Volume 89.7 fL (80.0-100.0); Mean Platelet Volume 11.4 fL (9.4-12.4); Monocytes # (auto) 0.44 K/uL (0.11-0.59); Neutrophils # (auto) 6.46 K/uL (1.40-6.50); Neutrophils % (auto) 73.3 %; Platelet Count 149 K/uL (130-400); RDW Coefficient of Variation 13.2 % (11.5-14.5); RDW Standard Deviation 43.2 fL (36.4-46.3); Red Blood Count 3.39 M/uL (4.20-5.40)
[2024-01-18 06:26] LABS: BUN Creatinine Ratio 11.9 (10-20); Calcium 7.5 mg/dl (8.6-10.3); Est GFR (African American) 46.3 ml/min; Est GFR (Non-African American) 39.9 ml/min; Potassium 3.2 mmol/L (3.5-5.1)
--- NOTE | 2024-01-18 07:50 | Pharmacy Report ---
Pharmacy Glycemic Short Note 2 - Date of Service January 18, 2024 - Glycemic Short BSG Results (Last 24 hours): 01/17/24 01/17/24 01/17/24 08:05 12:02 16:59 Glucose POC Glucose 117 H 114 H 134 H 01/17/24 01/18/24 20:19 05:47 Glucose 97 POC Glucose 142 H OUTPATIENT ANTIDIABETIC REGIMEN: * Trulicity 4.5mg SC QThursday (not taking, problems with product procurement per family) * HbA1c 14.3 (01/14/24) increased from 7.8 (09/10) per hospitalists note ASSESSMENT: 01/17 * Patient required 0 units of insulin yesterday while NPO, diet of clears resumed today. * Patient had 25 units of basal on 01/15 while transition off of insulin drip. * Will begin Lantus once daily today at reduced dose of 10 units - as patient would benefit best from once daily Lantus while inpatient and for home glycemi c management. * Loosen CR at this time as diet is resumed and basal dosing is determined to prevent any hypoglycemia. * Continue higher goal range per family preference. 01/15 * Franca received approximately 100 units of insulin yesterday from the insulin drip * Discussed patient with hospitalist, labs improved, BSGs within goal range, insulin drip running at less than 2 units/hr. Ok to transition to SQ insulin. * Lantus administered at 1054, overlapped with drip for ~3 hours and then discontinued drip. * Novolog started at a weight based stress of 2 with dinner. Per RN, family concerned that BSGs are too low, will increase goal range to 140-180mg/dL to prevent hypoglycemia. Will also add loose overnight checks for closer control. * Additional Lantus up to a weight based stress of 3 ordered at bedtime if BSGs remain elevated. 01/14 * Franca is a 83 YOF admitted with nausea, vomiting, and diarrhea and a history of T2DM admitted with a hyperglycemic crisis. Pharmacy has been consulted for glycemic management while inpatient. * BSG 826 on admission , pH 7.13, AG 12. Patient was started on insulin drip yesterday evening. BSGs trended down into goal range. Originally started on LR w/ 20KCl, switched to D5NSS +20KCl once reached goal range. Discussed with Dr. Ocasio, will continue insulin drip for now. * Potassium critically low this AM, repleted per hospitalist, repeat level improved. * She is receiving Zosyn for suspected acute gastroenteritis and is currently in acute renal failure, no other glycemic stressors noted. PLAN FOR INPATIENT GLYCEMIC CONTROL: * Continue to hold outpatient diabetes medications. * Basal insulin * Lantus 10 units SC Daily * Bolus insulin * NovoLog per scale ACHS or Q6hrs while NPO * Goal Range: Low 140 mg/dL - High 180 mg/dL * Correction Factor: 35 mg/dL/unit * Nutritional / Prandial insulin per carb ratio of 1 unit per 15 grams CHO consumed
[2024-01-18] MEDS: LANTUS PER UNIT CHARGE SC SCH (08:44)
[2024-01-18] MEDS: POTASSIUM CHLORIDE CRTAB 20 MEQ TABCR PO STA (08:45)
[2024-01-18] MEDS: AMOXICILLIN/CLAVULANATE 500 MG TAB PO SCH (13:04)
--- NOTE | 2024-01-18 14:24 | Hospitalist Progress Note ---
Date of Service January 18, 2024 Assessment & Plan (1) Hyperglycemic crisis in diabetes mellitus: Plan: DKA--POA Metabolic acidosis secondary to above Uncontrolled DM II HbA1c 14.3 Managed with DKA protocol IV insulin transition to SQ Insulin Will monitor electrolytes and blood glucose level Appreciate glycemic pharmacist help Anion gap closed Started with clears and now diet advanced as tolerated Tolerating Advanced diet Will get PT and OT evaluation prior to discharge Acute gastroenteritis--Likely secondary to infectious/inflammatory colitis Patient presented with bloody diarrhea H/O diverticulosis, internal hemorrhoids CT ABD:Pancolonic wall thickening and pericolic fat stranding, greatest in the left hemicolon. Appearance is consistent with infectious or inflammatory colitis. Cholelithiasis, gallbladder distention, and borderline gallbladder wall thickness. Correlate clinically for cholecystitis. Stool for C. difficile, stool PCR negative Imodium as needed Continue IV Zosyn for now Appreciate GI, surgery input HIDA scan has been negative for any cholecystitis and/or common bile duct dilatation Started with advance diet as tolerated Antibiotic will be changed to Augmentin and continued for a total of 10 days Hypertensive urgency Likely situational Continue metoprolol Monitor BP-Remains elevated at 172/70 as of 01/18/2024 Hypokalemia Replete electrolytes as needed Monitor-Potassium supplemented Acute kidney injury Likely prerenal --Renal USD:No renal calculi or hydronephrosis identified. Mild increased echogenicity of the kidneys may represent chronic medical renal disease. Lisinopril held Continue IV fluids Monitor renal function Avoid nephrotoxic agents as able Creatinine 1.6 today -Creatinine has been improving and it is 1.47 as of 01/17/2024 Creatinine has been improving CAD S/P stent PVD/CVA Hyperlipidemia Continue statin Hypothyroidism Continue levothyroxine Mood disorder Dementia as per records Currently not on meds Reorient frequently to minimize delirium DVT Px: SCDs Re: Bloody diarrhea CODE STATUS Full code Disposition PT OT prior to discharge Admission and Anticipated Discharge Date Admission Date: January 15, 2024 Subjective 01/17/2024 The patient was seen and examined in medical telemetry unit She has been complaining of abdominal discomfort mostly in the lower lower abdomen without any nausea and or vomiting Denies any chest pain or palpitation No fever, chills or any shortness of breath 01/18/2024 The patient was seen and examined in medical telemetry unit She has been feeling little better Still has lower quadrants pain and diarrhea No fever and no chills Tolerating liquid diet Review of Systems Review of Systems: All systems reviewed and are unremarkable except as noted below Physical Exam Physical Exam: Lying in bed with minimal distress due to abdominal pain Constitutional: well developed, well nourished and + ill appearing Eyes: PERRL, conjunctivae normal, anicteric sclerae ENMT: external ear and nose normal, oropharynx normal Neck: trachea midline, no thyromegaly Respiratory: no respiratory distress Auscultation: lungs clear to auscultation bilaterally Cardiovascular: Rate/Rhythm: regular rate and regular rhythm; not tachycardic Heart Sounds: normal S1 and normal S2; no murmur Extremities: no edema Gastrointestinal (Abdomen): Inspection/Auscultation: normal bowel sounds; abdomen not distended Percussion/Palpation: + abdomen tender (Lower quadrants) and abdomen soft Neurologic: normal touch/pain/proprioception and moves all extremities; no focal motor deficits Psychiatric: A+Ox3, euthymic affect Lymphatic: no cervical or axillary lymphadenopathy Results & Data Results & Data Vital Signs (Past 12 Hours) Vital Signs Temp Pulse Pulse Resp BP Pulse Ox O2 Del Method 01/18/24 14:08 71 01/18/24 08:33 36.7 C 64 16 172/70 H 97 Room Air 01/18/24 07:30 73 01/18/24 03:57 36.7 C 72 18 137/71 95 Room Air Laboratory Results Short CBC 01/18/24 Range/Units 05:47 WBC 8.80 (4.8-10.8) K/ul Hgb 10.3 L (12.0-16.0) g/dl Hct 30.4 L (37.0-47.0) % Plt Count 149 (130-400) K/uL BMP 01/18/24 05:47 Sodium 140 Potassium 3.2 L D Chloride 111 H Carbon Dioxide 22 BUN 15 Creatinine 1.26 H Glucose 97 Calcium 7.5 L Medications Administered Current Inpatient Medications Acetaminophen (Acetaminophen 325 Mg Tab) 650 mg PO QID PRN PRN Reason: pain/fever Stop: 02/14/24 03:10 Last Admin: 01/16/24 05:30 Dose: 650 mg Amoxicillin/Clavulanate Potassium (Amoxicillin/Clavulanate 500 Mg Tab) 1 tab PO BID ROM Stop: 01/25/24 04:59 Last Admin: 01/18/24 13:04 Dose: 1 tab Dextrose (Dextrose 50% 50 Ml Syringe) 25 - 50 ml IV UD PRN; Protocol PRN Reason: Hypoglycemia Protocol Stop: 02/13/24 23:14 Glucagon (Glucagon For Inj 1 Mg Vial) 1 mg IM UD PRN; Protocol PRN Reason: Hypoglycemia Protocol Stop: 02/13/24 23:14 Glucose (Glucose 40% Gel 15 Gm Tube) 15 - 30 gm PO UD PRN; Protocol PRN Reason: Hypoglycemia Protocol Stop: 02/13/24 23:14 Glucose (Glucose 10 Tab/Tube) 4 - 8 tab PO UD PRN; Protocol PRN Reason: Hypoglycemia Protocol Stop: 02/13/24 23:14 Promethazine HCl 6.25 mg/ (Sodium Chloride) 50.25 mls @ 201 mls/hr IV Q6H PRN PRN Reason: Nausea And Vomiting Stop: 02/14/24 03:10 Lactated Ringer's (Lr) 1,000 mls @ 50 mls/hr IV .Q20H [facility] Stop: 02/15/24 08:29 Last Admin: 01/18/24 08:45 Dose: 50 mls/hr Famotidine 10 mg/ Syringe 2.5 mls @ 1.25 mls/min IV Q24H [facility] Stop: 02/15/24 11:59 Last Admin: 01/18/24 13:04 Dose: 1.25 mls/min Insulin Aspart (Insulin Aspart Per Unit Charge) 0 units SC ACHS [facility] Stop: 02/16/24 16:29 Last Admin: 01/18/24 13:03 Dose: Not Given Insulin Glargine (Lantus Per Unit Charge) 10 units SC DAILY ROM; Protocol Stop: 02/17/24 08:59 Last Admin: 01/18/24 08:44 Dose: 10 units Levothyroxine Sodium (Levothyroxine Sodium 50 Mcg Tablet) 50 mcg PO DAILYBB [facility] Stop: 02/14/24 06:29 Last Admin: 01/18/24 05:14 Dose: 50 mcg Loperamide HCl (Loperamide Hcl 2 Mg Cap) 2 mg PO UD PRN PRN Reason: Diarrhea Stop: 02/14/24 13:36 Last Admin: 01/18/24 08:45 Dose: 2 mg Metoprolol Succinate (Metoprolol Succ 50mg Ext Rel Tab) 50 mg PO QAM [facility] Stop: 02/14/24 08:59 Last Admin: 01/18/24 08:45 Dose: 50 mg Miscellaneous (Carbohydrates For Hypoglycemia ) 15 - 30 gm PO UD PRN PRN Reason: Hypoglycemia Treatment Stop: 02/13/24 23:14 Miscellaneous Information (Pharmacy Glycemic Mgmt Consult) 1 each N/A UD PRN PRN Reason: Consult Stop: 02/13/24 22:18 Oxycodone HCl (Oxycodone Hcl Ir 5 Mg Tab (Immediate Release)) 5 mg PO Q4H PRN PRN Reason: Pain Stop: 01/29/24 03:10
[2024-01-19 07:17] LABS: Basophils # (auto) 0.03 K/uL (0.00-0.20); Basophils % (auto) 0.4 %; Eosinophils # (auto) 0.42 K/uL (0.00-0.50); Eosinophils % (auto) 5.5 %; Hematocrit (blood only) 32.6 % (37.0-47.0); Hemoglobin 10.7 g/dl (12.0-16.0); Immature Granulocytes # (auto) 0.06 K/uL (0.01-0.20); Immature Granulocytes % (auto) 0.8 %; Lymphocytes # (auto) 1.54 K/uL (1.20-3.40); Mean Corpuscular Hemoglobin 29.7 pg (25.0-34.0); Mean Corpuscular Hgb Conc 32.8 g/dL (32.0-36.0); Mean Corpuscular Volume 90.6 fL (80.0-100.0); Mean Platelet Volume 11.1 fL (9.4-12.4); Monocytes # (auto) 0.55 K/uL (0.11-0.59); Monocytes % (auto) 7.2 %; Neutrophils # (auto) 5.09 K/uL (1.40-6.50); Neutrophils % (auto) 66.1 %; Platelet Count 166 K/uL (130-400); RDW Coefficient of Variation 13.2 % (11.5-14.5); RDW Standard Deviation 43.4 fL (36.4-46.3); White Blood Count 7.69 K/ul (4.8-10.8)
[2024-01-19 07:34] LABS: BUN Creatinine Ratio 8.6 (10-20); Calcium 7.5 mg/dl (8.6-10.3); Creatinine Clr Calc Pharmacy 35.9 ml/min; Est GFR (African American) 57.7 ml/min; Est GFR (Non-African American) 49.8 ml/min; Magnesium 1.4 mg/dl (1.7-2.4); Potassium 3.3 mmol/L (3.5-5.1)
--- NOTE | 2024-01-19 08:45 | Pharmacy Report ---
Pharmacy Glycemic Short Note 2 - Date of Service January 19, 2024 - Glycemic Short BSG Results (Last 24 hours): 01/18/24 01/18/24 01/18/24 12:28 17:08 20:11 Glucose POC Glucose 110 H 97 153 H 01/19/24 01/19/24 06:44 08:15 Glucose 82 POC Glucose 71 OUTPATIENT ANTIDIABETIC REGIMEN: * Trulicity 4.5mg SC Q (not taking, problems with product procurement per family) * HbA1c 14.3% (01/14/24) increased from 7.8% (09/10) due to being off Trulicity multiple months. ASSESSMENT: 01/18 * Patient required 10 units of insulin yesterday, all basal, as goal range is higher per family preference. * Fasting BSG 82mg/dl, 71mg/dl, - Lantus starting today to prevent hypoglycemia. * Discussed patient case with SOLANGE May - likely will benefit from resuming home Trulicity on discharge, as patient did have A1c 7.8% when previously consistently using it, and it would only be once weekly dosing for patient who lives alone. 01/17 * Patient required 0 units of insulin yesterday while NPO, diet of clears resumed today. * Patient had 25 units of basal on 01/15 while transition off of insulin drip. * Will begin Lantus once daily today at reduced dose of 10 units * Loosen CR at this time as diet is resumed and basal dosing is determined to prevent any hypoglycemia. * Continue higher goal range per family preference. 01/15 * Franca received approximately 100 units of insulin yesterday from the insulin drip * Discussed patient with hospitalist, labs improved, BSGs within goal range, insulin drip running at less than 2 units/hr. Ok to transition to SQ insulin. * Lantus administered at 1054, overlapped with drip for ~3 hours and then discontinued drip. * NovoLog started at a weight based stress of 2 with dinner. Per RN, family concerned that BSGs are too low, will increase goal range to 140-180mg/dL to prevent hypoglycemia. Will also add loose overnight checks for closer control. * Additional Lantus up to a weight based stress of 3 ordered at bedtime if BSGs remain elevated. 01/14 * Franca is a 83 YO F admitted with nausea, vomiting, and diarrhea and a history of T2DM admitted with a hyperglycemic crisis. Pharmacy has been consulted for glycemic management while inpatient. * BSG 826 on admission , pH 7.13, AG 12. Patient was started on insulin drip yesterday evening. BSGs trended down into goal range. Originally started on LR w/ 20KCl, switched to D5NSS +20KCl once reached goal range. Discussed with Dr. Ocasio, will continue insulin drip for now. * Potassium critically low this AM, repleted per hospitalist, repeat level improved. * She is receiving Zosyn for suspected acute gastroenteritis and is currently in acute renal failure, no other glycemic stressors noted. PLAN FOR INPATIENT GLYCEMIC CONTROL: * Continue to hold outpatient diabetes medications. * Basal insulin * Lantus 8 units SC Daily * Bolus insulin * NovoLog per scale ACHS or Q6hrs while NPO * Goal Range: Low 140 mg/dL - High 180 mg/dL * Correction Factor: 35 mg/dL/unit * Nutritional / Prandial insulin per carb ratio of 1 unit per 15 grams CHO consumed
[2024-01-19] MEDS: LANTUS PER UNIT CHARGE SC SCH (09:02)
[2024-01-19] MEDS: MAGNESIUM SULFATE / D5W 1 GM/100 ML BAG IV SCH (09:50)
[2024-01-19] MEDS: POTASSIUM CHLORIDE / WTR 10 MEQ/100 ML PLCT IV SCH (09:50)
--- NOTE | 2024-01-19 14:41 | Hospitalist Progress Note ---
Date of Service January 19, 2024 Assessment & Plan (1) Hyperglycemic crisis in diabetes mellitus: Plan: DKA--POA Suspected infectious versus inflammatory colitis causing presenting DKA Metabolic acidosis secondary to above Uncontrolled DM II HbA1c 14.3 Managed with DKA protocol IV insulin transition to SQ Insulin Will monitor electrolytes and blood glucose level Appreciate glycemic pharmacist help Anion gap closed Started with clears and now diet advanced as tolerated Tolerating Advanced diet Will get PT and OT evaluation prior to discharge Will be discharged home this afternoon Infectious/inflammatory colitis Acute gastroenteritis--Likely secondary to infectious/inflammatory colitis Patient presented with bloody diarrhea H/O diverticulosis, internal hemorrhoids CT ABD:Pancolonic wall thickening and pericolic fat stranding, greatest in the left hemicolon. Appearance is consistent with infectious or inflammatory colitis. Cholelithiasis, gallbladder distention, and borderline gallbladder wall thickness. Correlate clinically for cholecystitis. Stool for C. difficile, stool PCR negative Imodium as needed Continue IV Zosyn for now Appreciate GI, surgery input HIDA scan has been negative for any cholecystitis and/or common bile duct dilatation Started with advance diet as tolerated Antibiotic will be changed to Augmentin and continued for a total of 10 day Minimal diarrhea otherwise remains asymptomatic Physically and mentally ready to go home Hypertensive urgency Likely situational Continue metoprolol Monitor BP-Remains elevated at 172/70 as of 01/18/2024 Her home medications will be resumed on discharge Hypokalemia Replete electrolytes as needed Monitor-Potassium supplemented Acute kidney injury Likely prerenal --Renal USD:No renal calculi or hydronephrosis identified. Mild increased echogenicity of the kidneys may represent chronic medical renal disease. Lisinopril held Continue IV fluids Monitor renal function Avoid nephrotoxic agents as able Creatinine 1.6 today -Creatinine has been improving and it is 1.47 as of 01/17/2024 Creatinine has been normalized CAD S/P stent PVD/CVA Hyperlipidemia Continue statin Hypothyroidism Continue levothyroxine Mood disorder Dementia as per records Currently not on meds Reorient frequently to minimize delirium DVT Px: SCDs Re: Bloody diarrhea CODE STATUS Full code Disposition PT OT prior to discharge Admission and Anticipated Discharge Date Admission Date: January 15, 2024 Subjective 01/17/2024 The patient was seen and examined in medical telemetry unit She has been complaining of abdominal discomfort mostly in the lower lower abdomen without any nausea and or vomiting Denies any chest pain or palpitation No fever, chills or any shortness of breath 01/18/2024 The patient was seen and examined in medical telemetry unit She has been feeling little better Still has lower quadrants pain and diarrhea No fever and no chills Tolerating liquid diet 01/19/2024 The patient was seen and examined in medical telemetry unit She has minimal discomfort in the abdomen and diarrhea is reasonably controlled Denies any nausea no vomiting and has been tolerating advance diet She wants to go home today Review of Systems Review of Systems: All systems reviewed and are unremarkable except as noted below Physical Exam Physical Exam: Lying in bed with minimal distress due to abdominal pain Constitutional: well developed, well nourished and + ill appearing Eyes: PERRL, conjunctivae normal, anicteric sclerae ENMT: external ear and nose normal, oropharynx normal Neck: trachea midline, no thyromegaly Respiratory: no respiratory distress Auscultation: lungs clear to auscultation bilaterally Cardiovascular: Rate/Rhythm: regular rate and regular rhythm; not tachycardic Heart Sounds: normal S1 and normal S2; no murmur Extremities: no edema Gastrointestinal (Abdomen): Inspection/Auscultation: normal bowel sounds; abdomen not distended Percussion/Palpation: abdomen soft; abdomen nontender (Lower quadrants) Neurologic: normal touch/pain/proprioception and moves all extremities; no focal motor deficits Psychiatric: A+Ox3, euthymic affect Lymphatic: no cervical or axillary lymphadenopathy Results & Data Results & Data Vital Signs (Past 12 Hours) Vital Signs Temp Pulse Pulse Resp BP BP Pulse Ox 01/19/24 11:10 36.5 C 64 14 152/78 H 98 01/19/24 08:00 01/19/24 07:33 36.6 C 69 14 151/71 H 97 01/19/24 07:22 61 01/19/24 04:09 36.7 C 90 18 153/68 H 94 Pulse Ox O2 Del Method O2 Del Method 01/19/24 11:10 Room Air 01/19/24 08:00 97 Room Air 01/19/24 07:33 Room Air 01/19/24 07:22 01/19/24 04:09 Room Air Laboratory Results Short CBC 01/19/24 Range/Units 06:44 WBC 7.69 (4.8-10.8) K/ul Hgb 10.7 L (12.0-16.0) g/dl Hct 32.6 L (37.0-47.0) % Plt Count 166 (130-400) K/uL BMP 01/19/24 06:44 Sodium 141 Potassium 3.3 L Chloride 111 H Carbon Dioxide 25 BUN 9 Creatinine 1.05 Glucose 82 Calcium 7.5 L Medications Administered Current Inpatient Medications Acetaminophen (Acetaminophen 325 Mg Tab) 650 mg PO QID PRN PRN Reason: pain/fever Stop: 02/14/24 03:10 Last Admin: 01/16/24 05:30 Dose: 650 mg Amoxicillin/Clavulanate Potassium (Amoxicillin/Clavulanate 500 Mg Tab) 1 tab PO BID ROM Stop: 01/25/24 04:59 Last Admin: 01/19/24 07:53 Dose: 1 tab Dextrose (Dextrose 50% 50 Ml Syringe) 25 - 50 ml IV UD PRN; Protocol PRN Reason: Hypoglycemia Protocol Stop: 02/13/24 23:14 Glucagon (Glucagon For Inj 1 Mg Vial) 1 mg IM UD PRN; Protocol PRN Reason: Hypoglycemia Protocol Stop: 02/13/24 23:14 Glucose (Glucose 40% Gel 15 Gm Tube) 15 - 30 gm PO UD PRN; Protocol PRN Reason: Hypoglycemia Protocol Stop: 02/13/24 23:14 Glucose (Glucose 10 Tab/Tube) 4 - 8 tab PO UD PRN; Protocol PRN Reason: Hypoglycemia Protocol Stop: 02/13/24 23:14 Promethazine HCl 6.25 mg/ (Sodium Chloride) 50.25 mls @ 201 mls/hr IV Q6H PRN PRN Reason: Nausea And Vomiting Stop: 02/14/24 03:10 Lactated Ringer's (Lr) 1,000 mls @ 50 mls/hr IV .Q20H ROM Stop: 02/15/24 08:29 Last Admin: 01/19/24 04:49 Dose: 50 mls/hr Famotidine 10 mg/ Syringe 2.5 mls @ 1.25 mls/min IV Q24H ROM Stop: 02/15/24 11:59 Last Admin: 01/19/24 12:33 Dose: 1.25 mls/min Insulin Aspart (Insulin Aspart Per Unit Charge) 0 units SC ACHS [facility] Stop: 02/16/24 16:29 Last Admin: 01/19/24 12:32 Dose: 2 units Insulin Glargine (Lantus Per Unit Charge) 8 units SC DAILY [facility]; Protocol Stop: 02/18/24 08:59 Last Admin: 01/19/24 09:02 Dose: 8 units Levothyroxine Sodium (Levothyroxine Sodium 50 Mcg Tablet) 50 mcg PO DAILYBB [facility] Stop: 02/14/24 06:29 Last Admin: 01/19/24 04:49 Dose: 50 mcg Loperamide HCl (Loperamide Hcl 2 Mg Cap) 2 mg PO UD PRN PRN Reason: Diarrhea Stop: 02/14/24 13:36 Last Admin: 01/18/24 21:55 Dose: 2 mg Metoprolol Succinate (Metoprolol Succ 50mg Ext Rel Tab) 50 mg PO [facility] Stop: 02/14/24 08:59 Last Admin: 01/19/24 07:53 Dose: 50 mg Miscellaneous (Carbohydrates For Hypoglycemia ) 15 - 30 gm PO UD PRN PRN Reason: Hypoglycemia Treatment Stop: 02/13/24 23:14 Miscellaneous Information (Pharmacy Glycemic Mgmt Consult) 1 each N/A UD PRN PRN Reason: Consult Stop: 02/13/24 22:18 Oxycodone HCl (Oxycodone Hcl Ir 5 Mg Tab (Immediate Release)) 5 mg PO Q4H PRN PRN Reason: Pain Stop: 01/29/24 03:10
[2024-01-19 17:57] LABS: BUN Creatinine Ratio 9.2 (10-20); Creatinine Clr Calc Pharmacy 38.5 ml/min; Est GFR (African American) 62.7; Est GFR (Non-African American) 54.1; Potassium 3.7 mmol/L (3.5-5.1)
[2024-01-19 18:04] LABS: Magnesium 2.1 mg/dl (1.7-2.4)
[2024-01-19 18:12] LABS: Calcium 8.1 mg/dl (8.6-10.3)
--- NOTE | 2024-01-20 07:38 | Discharge Summary ---
Date of Service January 20, 2024 Admission HPI Per Admitting Provider History obtained from patient, family, and records. Medical history significant for CAD status post stent, PVD, CVA, hypertension, hyperlipidemia, DM2 on oral medications, hypothyroidism, history IBS diarrhea predominant as per records, mood disorder, dementia. Last confinement May 2018 for atypical chest pain and uncontrolled hypertension. Patient had sudden onset achy abdominal pain followed by blood streaked diarrhea, nausea and projectile vomiting symptoms while visiting sisters home yesterday. Patient consumed a root beer float from a restaurant prior to going to sister's home. No recent antibiotics or sick contacts to her knowledge as per patient. Denies chest pain, SOB, headache. Patient did not want to come to ER until family persuaded her. BSG 800s, SBP 180s upon arrival at the ER IV insulin initiated at the ER. Blood sugar 300s at home as per patient. Recent issue procuring Trulicity medication as per family. Medical History as above Surgical History : Cataract surgeries, hip surgery, eyelid surgery section, hysterectomy Family History : Stroke DM, heart disease, breast cancer Personal/Social history : Non-smoker, rare EtOH intake, businesswoman Admission Exam Per Admitting Provider Physical Exam: GENERAL: Comfortable, slightly anxious, no respiratory distress SKIN: Normal color, warm HEENT: [place] palpebral conjunctivae, no ptosis, dry buccal mucosa NECK : Supple, no tenderness CHEST : CTA, no tenderness HEART : RRR, no obvious murmurs ABDOMEN: Some distention, hypogastric tenderness EXTREMITIES : No LE swelling/tenderness, no other conspicuous deformities noted NEUROLOGIC : Coherent, no facial asymmetry, no other gross focality Principal Diagnosis DKA, infectious/inflammatory colitis, hypertensive urgency Discharge Exam Lying in bed with minimal distress due to abdominal pain Constitutional well developed, well nourished and + ill appearing Eyes PERRL, conjunctivae normal, anicteric sclerae ENMT external ear and nose normal, oropharynx normal Neck trachea midline, no thyromegaly Respiratory no respiratory distress Auscultation: lungs clear to auscultation bilaterally Cardiovascular Rate/Rhythm: regular rate and regular rhythm; not tachycardic Heart Sounds: normal S1 and normal S2; no murmur Extremities: no edema Gastrointestinal (Abdomen) Inspection/Auscultation: normal bowel sounds; abdomen not distended Percussion/Palpation: abdomen soft; abdomen nontender (Lower quadrants) Neurologic normal touch/pain/proprioception and moves all extremities; no focal motor deficits Psychiatric A+Ox3, euthymic affect Lymphatic no cervical or axillary lymphadenopathy Discharge Data Allergies Allergy/AdvReac Type Severity Reaction Status Date / Time latex Allergy Severe SKIN TEARS Verified 01/14/24 23:22 codeine AdvReac Mild UPSET Verified 01/14/24 23:22 STOMACH propoxyphene AdvReac Mild UPSET Verified 01/14/24 23:22 STOMACH Consultations 01/14/24 22:56 ED Decision to Admit Stat 01/15/24 06:46 Consult Gastroenterology Routine 01/16/24 11:08 Consult General Surgery Routine Ordered Studies 01/15/24 00:29 CT Abd and Pelvis [CT abd pelvis wo con] Stat 01/16/24 08:23 US Renal Bladder [US renal/blad retro comp] Routine Diabetes Follow up Diabetes Follow-up Needed for HgbA1c >9% Hospital Course (1) Hyperglycemic crisis in diabetes mellitus: DKA--POA Suspected infectious versus inflammatory colitis causing presenting DKA Metabolic acidosis secondary to above Uncontrolled DM II HbA1c 14.3 Managed with DKA protocol IV insulin transition to SQ Insulin Will monitor electrolytes and blood glucose level Appreciate glycemic pharmacist help Anion gap closed Started with clears and now diet advanced as tolerated Tolerating Advanced diet Will get PT and OT evaluation prior to discharge Will be discharged home this afternoon Infectious/inflammatory colitis Acute gastroenteritis--Likely secondary to infectious/inflammatory colitis Patient presented with bloody diarrhea H/O diverticulosis, internal hemorrhoids CT ABD:Pancolonic wall thickening and pericolic fat stranding, greatest in the left hemicolon. Appearance is consistent with infectious or inflammatory colitis. Cholelithiasis, gallbladder distention, and borderline gallbladder wall thickness. Correlate clinically for cholecystitis. Stool for C. difficile, stool PCR negative Imodium as needed Continue IV Zosyn for now Appreciate GI, surgery input HIDA scan has been negative for any cholecystitis and/or common bile duct dilatation Started with advance diet as tolerated Antibiotic will be changed to Augmentin and continued for a total of 10 day Minimal diarrhea otherwise remains asymptomatic Physically and mentally ready to go home Hypertensive urgency Likely situational Continue metoprolol Monitor BP-Remains elevated at 172/70 as of 01/18/2024 Her home medications will be resumed on discharge Hypokalemia Replete electrolytes as needed Monitor-Potassium supplemented Acute kidney injury Likely prerenal --Renal USD:No renal calculi or hydronephrosis identified. Mild increased echoge nicity of the kidneys may represent chronic medical renal disease. Lisinopril held Continue IV fluids Monitor renal function Avoid nephrotoxic agents as able Creatinine 1.6 today -Creatinine has been improving and it is 1.47 as of 01/17/2024 Creatinine has been normalized CAD S/P stent PVD/CVA Hyperlipidemia Continue statin Hypothyroidism Continue levothyroxine Mood disorder Dementia as per records Currently not on meds Reorient frequently to minimize delirium DVT Px: SCDs Re: Bloody diarrhea CODE STATUS Full code Disposition PT OT prior to discharge Total Time Total Time Spent Total Time Spent (In Minutes): 35 minutes Discharge Plan Discharge Items Patient Disposition: Home - Self-Care Reason For Visit: LGIB, HYPERGLYCEMIC CRISIS Discharge Diagnosis: DKA, infectious/inflammatory colitis, hypertensive urgency Condition on Discharge: Fair Activity: Resume your previous activity Non-emergency contact: Primary Care Provider Call non-emergency contact if: you have any medication questions and your symptoms worsen Follow-up/Referrals: Austin Long MD [Primary Care Provider] - 01/23/24 2:00 pm (Your appointment is with Dr. Hernández) Diet: Carb Consistent or DM2 Addtl Attending Provider Instructions: Please take precautions to avoid falls Finish the course of antibiotic You can try [id number] antidiarrheal to control your diarrhea Please keep appointment with your healthcare provider You will likely need to have a colonoscopy down the line with the attack of nonspecific colitis and also an appointment with surgery as an outpatient for gallstones Pending Studies at Discharge: No Stand-Alone Forms: [facility] [place] Information, Smoking Cessation Medications and DC Order Prescriptions: New amoxicillin-pot clavulanate 500-125 mg Tablet 1 tab PO BID Qty: 12 0RF Continued atorvastatin 40 mg Tablet 40 mg PO QAM levothyroxine 50 mcg Tablet 50 mcg PO QAM nitroglycerin 0.4 mg Tablet, Sublingual 0.4 mg Sublingual DIRECTED lisinopril 40 mg Tablet 40 mg PO QAM Trulicity 4.5 mg/0.5 mL pen injector 4.5 mg SUBCUT WK Rx Instructions: metoprolol succinate 50 mg tablet extended release 24 hr 50 mg PO QAM Discharge Orders: Discharge Order (Routine); Ordered 01/19/24 Ordered By: Tray Glynn/Other Patient Handouts: Amoxicillin/Clavulanate Oral Tablet, Healthy Meals for Diabetes, Eating Out When You Have Diabetes, Diabetes Serving Portion Sizes, Diabetes: Meal Planning Admission Data Admit Date/Time: 01/15/24 03:05 Attending Provider: Tray Echavarria Admit Provider: Adalid Cervantes Primary Care Provider: Austin Long Other Providers: Bimal Link; Adalid Cervantes; Kareem Lomeli; Dami Nava; Delia Lorenzana; Jl Watts; Gopal Bailey; Marleen Banks; Susan Rivers; Avila Emery Jr; Moises Moran; Manish Lemon; Elin Shipman; Jose Ocasio Other Interventions: Discharge Summary Assessment (RN) Last Done: 01/19/24 18:06
== END 2024-01-19 18:45 | disposition home or self-care (01) | DRG 391 ==
LOC: ED 21:40 → EDINP 01-15 03:05 → SUATTDRO 01-15 03:05 → 2N 01-15 03:55